=== PATIENT | female | born 1965 | race Caucasian/White ===

== ENCOUNTER 2019-08-16 05:33 | Outpatient (RCR) | payer OTHER, SELFPAY | END 2019-09-03 00:01 | LOC: ONCMED 05:33 | PROVIDERS: Visit Provider Nurse Practitioner | DX: Z51.11 Encounter for antineoplastic chemotherapy (principal); C50.411 Malignant neoplasm of upper-outer quadrant of right female breast; Z17.1 Estrogen receptor negative status [ER-]; M54.9 Dorsalgia, unspecified; F41.8 Other specified anxiety disorders; R51 Headache; H53.8 Other visual disturbances; T82.9XXA Unspecified complication of cardiac and vascular prosthetic device, implant and graft, initial encounter; Y80.1 Therapeutic (nonsurgical) and rehabilitative physical medicine devices associated with adverse incidents; Z90.11 Acquired absence of right breast and nipple | CPT/HCPCS: 36593; 70553; 72072; 72100; 72197; 73523; 80053; 85025; 93306; 96367; 96375; 96413; 99214; A9579 ×2; J1100; J1453; J1642 ×2; J2469; J2997; J3490; J7050; J9264 ==

== ENCOUNTER 2019-10-03 10:30 | Outpatient (RCR) | payer OTHER, SELFPAY ==
[2019-09-23 14:19] LABS: Basophils % 0.5 %; Eosinophils # 0.2 10^3/uL (0.0-0.8); Eosinophils % 3.8 %; Hematocrit 42.1 % (37.0-47.0); Hemoglobin 13.2 g/dL (11.5-15.3); Lymphocytes # 1.2 10^3/uL (0.8-4.8); Lymphocytes % 20.2 %; Mean Corpuscular HGB Conc 31.4 g/dL (30.0-36.0); Mean Corpuscular Hemoglobin 27.8 pg (28.0-34.0); Mean Corpuscular Volume 88.6 fL (81-99); Mean Platelet Volume 9.5 fL (7.4-10.4); Monocytes # 0.4 10^3/uL (0.2-0.9); Monocytes % 7.2 %; Neutrophils # 4.1 10^3/uL (1.8-7.7); Nucleated Red Blood Cells % 0 %; Platelet Count 329 10^3/cmm (130-400); Red Blood Count 4.75 10^6/uL (4.1-5.3); Red Cell Distribution Width 13.4 % (12.1-15.1); White Blood Count 6.1 10^3/uL (4.0-10.0)
[2019-09-23 14:34] LABS: Alanine Aminotransferase 39 U/L (0-33); Albumin Level 4.2 g/dL (3.5-5.2); Alkaline Phosphatase 110 IU/L (35-105); Anion Gap 13.9 (5-19); Aspartate Amino Transferase 28 U/L (0-32); Blood Urea Nitrogen 9 mg/dL (6-20); Calcium 10.1 mg/Dl (8.6-10.0); Carbon Dioxide 29 mmol/L (22-29); Chloride 100 mmol/L (98-107); Globulin 3.1 g/dL (1.3-4.6); Glomerular Filtration Rate 86.9 mL/min (90-130); Glucose 102 mg/dL (74-109); Potassium 3.9 mmol/L (3.5-5.1); Sodium 139 mmol/L (136-145); Total Bilirubin 0.2 mg/dL (0.15-1.2); Total Protein 7.3 g/dL (6.6-8.7)
--- NOTE | 2019-10-03 10:04 | MM_ITS ---
WS: [id number] DIAGNOSTIC LEFT DIGITAL MAMMOGRAM WITH CAD HISTORY: HX OF BREAST CA, history of RIGHT breast cancer. COMPARISON: 12/03/2018 and 03/17/2010 Technique: CC, MLO and ML views. Breast composition: The breasts are heterogeneously dense, which may obscure small masses. Scattered asymmetries are stable since the prior examination. Also stable since 03/17/2010. No suspicious mass. MM/[place] [id number] IMPRESSION: BI-RADS: 2-Benign FOLLOW UP: 1 Year Follow-up
--- NOTE | 2020-01-03 12:05 | XR_ITS ---
WS: [id number] CERVICAL SPINE TECHNIQUE: 3 views of the cervical spine CLINICAL INFORMATION: cervical radiculopathy COMPARISON: None. FINDINGS: Straightening of the normal cervical lordosis. Mild spondylitic changes. Disc space narrowing worse a t C5-C6 with anterior hypertrophic changes. Slight retrolisthesis C5 on C6. No instability on flexion -extension. Normal C1-2 articulation. Moderate facet arthropathy. Mild cervical curve convex right.
== END 2019-10-04 23:59 | disposition home or self-care (01) ==
LOC: RADSHAW 10:30
PROVIDERS: Internal Medicine Hematology & Oncology; Family Provider Nurse Practitioner Women's Health; PCP Family Medicine; Visit Provider Surgery
DX: C50.411 Malignant neoplasm of upper-outer quadrant of right female breast (principal); Z17.1 Estrogen receptor negative status [ER-]; Z79.899 Other long term (current) drug therapy
CPT/HCPCS: 77065; 80053; 85025; G0463

== ENCOUNTER 2019-10-08 05:51 | Day surgery (SDC) | payer OTHER, SELFPAY ==
[2019-10-07 14:25] VITALS: BMI 33.7
[2019-10-08] VITALS (16 sets, daily range): BP systolic 125–179; BP diastolic 78–90; PULSE 72–101; RESP 14–22; TEMP 36.3–37.7; O2SAT 91–100
--- NOTE | 2019-10-08 06:22 | PM.HPUD ---
H&P update H&P Update: DATE OF SURGERY/PROCEDURE: 01/15/20 DATE H&P PERFORMED: 09/30/19 H&P UPDATE INFORMATION: H&P completed within last 30 days and No changes to prior documentation PLANNED PROCEDURE: Operation Date: 10/08/19 07:00 Proposed Procedures p Mastectomy Simple 76982 Z85.3(Left) - Dl Shabazz MD Full H&P Perinent History: Medical/Surgical History: Medical History (Updated 09/30/19 @ 09:46 by Dl Shabazz MD) History of breast cancer (Acute) Family History: Family History (Updated 09/30/19 @ 08:39 by Sarahy Torres RN) Family/Other Cancer breast Denies family history of Anesthesia complication Bleeding disorder Social History: Social History Smoking and tobacco status: never smoked Second hand smoke exposure: No Alcohol intake: never Adopted: No Caregiver/support person: No Lives independently: Yes Household members: family Housing: House Marital status: Single Highest education level completed: High School Graduate service: Yes Current occupational status: retired Current occupational exposures/hazards: No Pets and animals: No History of recent travel: No Sexually active: No Current gender identity: Female Isamar/Mosque: Church Special isamar needs: No Agree to transfusion: No Financial difficulty paying for basics: Decline to Answer
[2019-10-08] MEDS: sodium chloride 0.9% 1,000 ML 30 ML IV (06:32)
[2019-10-08] MEDS: scopolamine 1.5 Patch 1 PATCH TRANSDERMA (06:38)
--- NOTE | 2019-10-08 06:50 | ANES.PREANE2 ---
Pre-Anesthetic Assessment Pre-Anesthetic Assessment: Height/Weight: Height 1.78 m Weight 106.594 kg Temp Pulse Resp BP Pulse Ox 97.5 F L 88 20 H 125/82 96 10/08/19 06:12 10/08/19 06:12 10/08/19 06:12 10/08/19 06:12 10/08/19 06:12 Proposed Procedure: Operation Date: 10/08/19 07:00 Proposed Procedures p Mastectomy Radial(Left) - Dl Shabazz MD Familial anesthetic complications: PONV Was Beta Wilbur taken within 24 hours: N/A Last intake: Intake Last Liquid Date 10/07/19 Last Liquid Time 21:00 Last Solid Date 10/07/19 Last Solid Time 19:00 Social: Social History: No alcohol and No tobacco Exam: Pre-Anes Outpt Exam: alert, oriented x 3, clear to auscultation bilaterally and regular rate & rhythm Airway: Cervical ROM: WNL MP: 4 Dentition: Caps Pulmonary: Pulmonary: None reported CV/HEM: CV/HEM: None reported : : None reported Hepatic: Hepatic: None reported GI: GI: None reported Metabolic: Metabolic: Morbid obesity Musc/skel: Musc/skel: Lower Back Pain Neuropsych: Neuropsych: None reported Comments: Post chemotherapy Anesthetic Plan: ASA status: II Anesthesia: General Meds/Allergies Current Medications: Current Medications Generic Name Dose Route Start Last Admin Trade Name Freq PRN Reason Stop Dose Admin Sodium Chloride 1,000 mls @ 30 ml s/hr 10/08/19 06:00 10/08/19 06:32 Sodium Chloride 0.9% IV 10/09/19 05:59 30 mls/hr .Q24H ELPIDIO Administration PFSH Anesthesia PFSH: Medical History Arthritis Hiatal hernia History of breast cancer Migraine Postmenopausal Surgical History History of delivery History of left total mastectomy History of right total mastectomy Family History Family/Other Cancer breast Denies family history of Anesthesia complication Bleeding disorder Social History Smoking and tobacco status: former smoker Second hand smoke exposure: No Alcohol intake: never Adopted: No Caregiver/support person: No Lives independently: Yes Household members: family Housing: House Marital status: Single Highest education level completed: High School Graduate service: Yes Current occupational status: retired Current occupational exposures/hazards: No Pets and animals: No History of recent travel: No Sexually active: No Current gender identity: Female Isamar/Methodist: Sabianist Special isamar needs: No Agree to transfusion: No Financial difficulty paying for basics: Decline to Answer Female Reproductive History: Date of last menstrual period: 06/04/17 Data Anesthesia Cardiac Studies: No Data to Display
--- NOTE | 2019-10-08 07:28 | SUR.OPER ---
0727 - Pt's family (Shawna) notified of surgery start via her cell phone.
--- NOTE | 2019-10-08 08:17 | P.OP_ITS ---
Operative Report Date of procedure: October 08, 2019 Post-op diagnosis: same Post-op Diagnosis: History of right breast cancer required left prophylactic mastectomy Post-op Findings: Normal-looking left breast Procedure Done: Prophylactic left total mastectomy Implants: 15 Palestinian round Nba drain Specimens removed/disposition: Left mastectomy short sutures marked superior and long sutures harshad lateral Additional inferior skin margin Surgeon: Dl Shabazz Clerk Of Superior Court: morgue technician Thang Medical student Court Registry Officer Circulating nurse Jessenia Anesthesia: General (Gabbi Retana) Estimated blood loss (mL): 20 Condition: stable Disposition: same day Brief History: This is a pleasant 54 years old female patient well known to me from previous clinical encounter in the form of right total mastectomy and sentinel lymph node biopsy for right breast cancer, patient did receive treatment for that and I did place a Port-A-Cath for her that was taken out later on, recently she started to show interest in prophylactic left mastectomy. After thorough history physical examination and reviewing the chart and obtaining a screening mammography, I did counseling department chair the patient for prophylactic left mastectomy and she did agree to proceed, also patient fulfilled the crite katy to undergo prophylactic mastectomy as she did report: After further analyzing family history per patient she does report that she has a paternal grandmother with history of gynecological malignancy likely ovarian cancer and she also does admit that her paternal aunt has history of breast cancer in addition to her maternal uncle with colon cancer, maternal aunt breast cancer, and her maternal grandmother with colon cancer. Informed consent per chart Procedure: Patient was identified in the holding area and the left breast was marked by me in the presence of female business management professor ANA Lomas, patient was then taken to the operative suite, where she was placed in supine position and got intubated by anesthesia and her left arm was placed in the 90 degrees to her body, prep and drape of the left breast region was done under the usual sterile technique. Timeout was done verifying the patient's name medical record number and destination after the procedure, all were in agreement. I started by skin incision that was made that encompassed the left nipple area complex . A generous transverse/oblique direction incision across the breast was done. Flaps were raised in the avascular plane between the subcutaneous tissue and breast tissue from the clavicle superiorly, the sternum medially, the anterior rectus sheath inferiorly, and anterior border of the latissimus dorsi muscle laterally. Hemostasis was achieved of the flaps. Next the breast tissue underlying pectoralis fascia were excised from the pectoralis major muscle, progressing from medially to laterally in the avascular plane. At the lateral border of the pectoralis major muscle, the breast tissue was swung laterally,. The specimen consisting of left breast then excised by dividing the remaining lateral pedicle and sent for permanent pathology.Specimen oriented as short sutures marked superior and long sutures marked lateral Thorough irrigation and hemostasis was achieved A 19 Palestinian Nba rounded drain was brought out from the inferior flap and secured to the chest wall with 2-0 silk Redundant Inferior skin flap was excised and sent for pathology separately And the wound was closed in layers using interrupted 2-0 Vicryl followed by skin kingston,follwoed by dry dressing, drain dressings, fluffs on top and sports bra was applied. Counts of sponges,needles and instruments were completed at the end of the procedure I was present for the whole entire procedure Patient was then extubated and transferred to the recovery room in stable condition
--- NOTE | 2019-10-08 08:28 | SUR.PHASEI ---
0834 PATIENT TO PACU VIA GURNEY FROM OR. RR EVEN AND UNLABORED. PLACED ON SIMPLE MASK AT 8L, SPO2 99%. PATIENT RESPONDS TO VERBAL STIMULI. DRESSING DRY AND INTACT TO LEFT BREAST, WITH SURGICAL BRA IN PLACE. BRIAN DRAIN NOTED.
[2019-10-08] MEDS: fentaNYL 50 mcg/mL INJ 2mL IVP ×2 (08:31→08:39)
[2019-10-08] MEDS: ondansetron 2 mg/ML SDV 2 mL 4 MG IVP (08:34)
[2019-10-08] MEDS: metoclopramide 5 mg/mL SDV 2 mL 10 MG IVP (08:48)
--- NOTE | 2019-10-08 08:54 | SUR.PHASEI ---
0854 PATIENT RATES PAIN 5/10, WANTING TO WAIT FOR PAIN MEDICATIONS DUE TO NAUSEA.
[2019-10-08] MEDS: morphine 4 mg/mL SDV 1 mL 2 MG IVP (08:56)
--- NOTE | 2019-10-08 09:16 | SUR.PHASEI ---
0911 PATIENT TO OPS VIA GURNEY FROM PACU. A/OX3. RR EVEN AND UNLABORED. PWD. DRESSING TO LEFT BREAST, CDI WITH SURGICAL BRA AND BRIAN DRAIN.
== END 2019-10-08 10:16 | disposition home or self-care (01) ==
PROVIDERS: Family Provider Nurse Practitioner Women's Health; PCP Family Medicine; Visit Provider Surgery
PROC: (CPT 19303; principal; 2019-10-08 07:00)
DX: Z85.3 Personal history of malignant neoplasm of breast (principal); Z80.3 Family history of malignant neoplasm of breast; E66.01 Morbid (severe) obesity due to excess calories; Z68.33 Body mass index [BMI] 33.0-33.9, adult
CPT/HCPCS: 19303; 12345; 88305; 88309; J0131; J0690; J1100; J2001; J2250; J2270; J2405; J2704; J2710; J2765; J3010; J3490; J7030

== ENCOUNTER 2019-12-20 10:25 | Outpatient (CLI) | payer OTHER, SELFPAY ==
[2019-12-20 11:36] LABS: Basophils % 0.4 %; Eosinophils # 0.3 10^3/uL (0.0-0.8); Eosinophils % 4.5 %; Hemoglobin 12.7 g/dL (11.5-15.3); Lymphocytes # 1.8 10^3/uL (0.8-4.8); Lymphocytes % 26.8 %; Mean Corpuscular HGB Conc 30.2 g/dL (30.0-36.0); Mean Corpuscular Volume 86.1 fL (81-99); Mean Platelet Volume 9.5 fL (7.4-10.4); Monocytes # 0.4 10^3/uL (0.2-0.9); Monocytes % 5.7 %; Neutrophils # 4.2 10^3/uL (1.8-7.7); Neutrophils % 62.3 %; Nucleated Red Blood Cells % 0 %; Platelet Count 344 10^3/cmm (130-400); Red Blood Count 4.88 10^6/uL (4.1-5.3); Red Cell Distribution Width 13.6 % (12.1-15.1); White Blood Count 6.7 10^3/uL (4.0-10.0)
[2019-12-20 12:02] LABS: Alanine Aminotransferase 33 U/L (0-33); Albumin Level 4.2 g/dL (3.5-5.2); Alkaline Phosphatase 100 IU/L (35-105); Anion Gap 15.1 (5-19); Aspartate Amino Transferase 20 U/L (0-32); Blood Urea Nitrogen 11 mg/dL (6-20); Calcium 9.6 mg/dL (8.5-10.5); Carbon Dioxide 28 mmol/L (22-29); Chloride 101 mmol/L (98-107); Globulin 3.2 g/dL (1.3-4.6); Glomerular Filtration Rate 86.9 mL/min (90-130); Glucose 100 mg/dL (65-115); Osmolality Calculated 286 mOsm/kg (285-295); Potassium 4.1 mmol/L (3.5-5.1); Sodium 140 mmol/L (136-145); Total Bilirubin 0.2 mg/dL (0.15-1.2); Total Protein 7.4 g/dL (6.6-8.7)
--- NOTE | 2020-01-03 | MR_ITS ---
WS: [id number] MRI CERVICAL SPINE NONCONTRAST TECHNIQUE: Sagittal T1, T2 and STIR imaging. Axial T2, gradient, and fiesta imaging. CLINICAL INFORMATION: NECK PAIN COMPARISON: None. FINDINGS: Straightening of the normal cervical lordosis. Cord signal is normal. Slight retrolisthesis with mild disc bulging worse at C5-6. No high-grade central canal stenosis. C2-C3: Normal. C3-C4: No significant disc bulging. Mild right and no significant left foraminal narrowing. Mild face t arthropathy. Spinal canal is patent. C4-C5: No significant disc bulging. Mild to moderate facet arthropathy. Mild left and no significant right foraminal narrowing. C5-C6: Central disc osteophyte protrusion with slight contact of the cervical cord. Mild to moderate central canal stenosis. Moderate right and no significant left foraminal narrowing. Moderate facet ar thropathy. C6-C7: Normal. C7-T1: Normal Visualized brain stem structures: Normal. Prevertebral soft tissues: Normal.
--- NOTE | 2020-01-03 | MR_ITS ---
WS: [id number] MRI RIGHT SHOULDER NONCONTRAST TECHNIQUE: Sagittal T2, coronal T1, T2 and proton density imaging. Axial gradient PDE imaging. CLINICAL INFORMATION: RT SHOULDER PAIN COMPARISON: None. FINDINGS: Moderate degenerative arthritis at the AC joint with mild edema. Mild downsloping of the acromion wit h subacromial spurring. Chronic thinning of the supraspinatus distally. Tiny intrasubstance tear invo lving the distal supraspinatus. Tiny insertional tear. Small undersurface tear at the infraspinatus i nsertion posteriorly. Normal teres minor. Normal subscapularis tendon distally. Normal biceps tendon in the bicipital groov e. Small effusion in the subcoracoid bursa. Degenerative fraying of the glenoid labrum. Biceps labral an chor appears intact.
[2020-03-20 12:50] LABS: Basophils % 0.5 %; Eosinophils # 0.2 10^3/uL (0.0-0.8); Eosinophils % 2.9 %; Hematocrit 45.1 % (37.0-47.0); Hemoglobin 13.6 g/dL (11.5-15.3); Lymphocytes # 1.8 10^3/uL (0.8-4.8); Lymphocytes % 23.4 %; Mean Corpuscular HGB Conc 30.2 g/dL (30.0-36.0); Mean Corpuscular Hemoglobin 26.7 pg (28.0-34.0); Mean Corpuscular Volume 88.4 fL (81-99); Monocytes # 0.4 10^3/uL (0.2-0.9); Monocytes % 5.2 %; Neutrophils # 5.19 10^3/uL (1.8-7.7); Neutrophils % 67.6 %; Nucleated Red Blood Cells % 0 %; Platelet Count 323 10^3/cmm (130-400); Red Cell Distribution Width 15.8 % (12.1-15.1); White Blood Count 7.7 10^3/uL (4.0-10.0)
[2020-03-20 12:54] LABS: Alanine Aminotransferase 25 U/L (0-33); Albumin Level 4.2 g/dL (3.5-5.2); Alkaline Phosphatase 89 IU/L (35-105); Anion Gap 15.6 (5-19); Aspartate Amino Transferase 15 U/L (0-32); Blood Urea Nitrogen 8 mg/dL (6-20); Calcium 9.3 mg/dL (8.5-10.5); Carbon Dioxide 28 mmol/L (22-29); Chloride 102 mmol/L (98-107); Globulin 3.3 g/dL (1.3-4.6); Glomerular Filtration Rate 103.4 mL/min (90-130); Glucose 81 mg/dL (65-115); Osmolality Calculated 287 mOsm/kg (285-295); Potassium 4.6 mmol/L (3.5-5.1); Sodium 141 mmol/L (136-145); Total Bilirubin 0.2 mg/dL (0.15-1.2); Total Protein 7.5 g/dL (6.6-8.7)
[2020-03-20 13:22] LABS: Slide Review Slide Review Perform
== END 2019-12-20 10:26 | disposition home or self-care (01) ==
LOC: ONCMED 11:32
PROVIDERS: Surgery; PCP Family Medicine; Visit Provider Internal Medicine Medical Oncology
DX: C50.411 Malignant neoplasm of upper-outer quadrant of right female breast (principal)
CPT/HCPCS: 36415; 80053; 85025

== ENCOUNTER 2019-12-23 08:01 | Outpatient (CLI) | payer OTHER, SELFPAY | END 2019-12-23 08:02 | disposition home or self-care (01) | LOC: ONCMED 08:01 | PROVIDERS: PCP Family Medicine; Visit Provider Internal Medicine Hematology & Oncology | DX: C50.411 Malignant neoplasm of upper-outer quadrant of right female breast (principal); Z17.1 Estrogen receptor negative status [ER-] ==

== ENCOUNTER → 2019-12-27 11:14 | Outpatient (BNVA) | payer OTHER, SELFPAY | PROVIDERS: PCP Family Medicine; Referring Provider Internal Medicine Hematology & Oncology; Visit Provider Orthopaedic Surgery | DX: S49.90XA Unspecified injury of shoulder and upper arm, unspecified arm, initial encounter (principal); M13.811 Other specified arthritis, right shoulder | CPT/HCPCS: 73030 ==

== ENCOUNTER 2020-01-03 08:00 | Outpatient (CLI) | payer OTHER, SELFPAY ==
--- NOTE | 2020-01-03 | MR_ITS ---
WS: [id number] MRI RIGHT SHOULDER NONCONTRAST TECHNIQUE: Sagittal T2, coronal T1, T2 and proton density imaging. Axial gradient PDE imaging. CLINICAL INFORMATION: RT SHOULDER PAIN COMPARISON: None. FINDINGS: Moderate degenerative arthritis at the AC joint with mild edema. Mild downsloping of the acromion wit h subacromial spurring. Chronic thinning of the supraspinatus distally. Tiny intrasubstance tear invo lving the distal supraspinatus. Tiny insertional tear. Small undersurface tear at the infraspinatus i nsertion posteriorly. Normal teres minor. Normal subscapularis tendon distally. Normal biceps tendon in the bicipital groov e. Small effusion in the subcoracoid bursa. Degenerative fraying of the glenoid labrum. Biceps labral an chor appears intact. MR/MR shoulder RT wo con* [id number] IMPRESSION: 1. Moderate degenerative arthritis at the AC joint with mild edema and mild do wnsloping of the acromion with subacromial spurring. 2. Chronic thinning of the supraspinatus with a tiny intrasubstance tear dista lly. Tiny supraspinatus insertional tear. 3. Tiny undersurface tear at the infraspinatus insertion posteriorly. 4. Rotator cuff is otherwise intact. No full-thickness tears. 5. Normal biceps tendon in the bicipital groove. 6. Degenerative fraying of the glenoid labrum. 7. Small subcoracoid bursal effusion.
--- NOTE | 2020-01-03 | XR_ITS ---
WS: [id number] CERVICAL SPINE TECHNIQUE: 3 views of the cervical spine CLINICAL INFORMATION: cervical radiculopathy COMPARISON: None. FINDINGS: Straightening of the normal cervical lordosis. Mild spondylitic changes. Disc space narrowing worse a t C5-C6 with anterior hypertrophic changes. Slight retrolisthesis C5 on C6. No instability on flexion -extension. Normal C1-2 articulation. Moderate facet arthropathy. Mild cervical curve convex right. XR/XR cervical spine 4-5V [id number] IMPRESSION: No instability on flexion-extension
--- NOTE | 2020-01-03 | MR_ITS ---
WS: [id number] MRI CERVICAL SPINE NONCONTRAST TECHNIQUE: Sagittal T1, T2 and STIR imaging. Axial T2, gradient, and fiesta imaging. CLINICAL INFORMATION: NECK PAIN COMPARISON: None. FINDINGS: Straightening of the normal cervical lordosis. Cord signal is normal. Slight retrolisthesis with mild disc bulging worse at C5-6. No high-grade central canal stenosis. C2-C3: Normal. C3-C4: No significant disc bulging. Mild right and no significant left foraminal narrowing. Mild face t arthropathy. Spinal canal is patent. C4-C5: No significant disc bulging. Mild to moderate facet arthropathy. Mild left and no significant right foraminal narrowing. C5-C6: Central disc osteophyte protrusion with slight contact of the cervical cord. Mild to moderate central canal stenosis. Moderate right and no significant left foraminal narrowing. Moderate facet ar thropathy. C6-C7: Normal. C7-T1: Normal Visualized brain stem structures: Normal. Prevertebral soft tissues: Normal. MR/MR cervical spin wo con* [id number] IMPRESSION: 1. Straightening of the normal cervical lordosis. Cord signal is normal. 2. Slight retrolisthesis C5 on C6 with central disc osteophyte protrusion and mild to moderate central canal stenosis. Slight indentation on cervical cord. 3. Mild to moderate bony foraminal narrowing worse at right C3-C4, left C4-C5, and right C5-C6,
== END 2020-01-03 09:00 | disposition home or self-care (01) ==
PROVIDERS: PCP Family Medicine; Visit Provider Orthopaedic Surgery
DX: M54.2 Cervicalgia (principal); M54.12 Radiculopathy, cervical region; M25.511 Pain in right shoulder; M19.011 Primary osteoarthritis, right shoulder; R60.0 Localized edema; M25.411 Effusion, right shoulder
CPT/HCPCS: 72050; 72141; 73221

== ENCOUNTER 2020-03-20 08:35 | Outpatient (CLI) | payer OTHER, SELFPAY | END 2020-03-20 08:36 | disposition home or self-care (01) | PROVIDERS: PCP Family Medicine; Visit Provider Internal Medicine Hematology & Oncology | DX: C50.411 Malignant neoplasm of upper-outer quadrant of right female breast (principal); Z17.1 Estrogen receptor negative status [ER-] | CPT/HCPCS: 80053; 85025 ==

== ENCOUNTER 2020-03-23 12:42 | Outpatient (CLI) | payer OTHER, SELFPAY | END 2020-03-23 12:43 | disposition home or self-care (01) | LOC: ONCMED 12:45 | PROVIDERS: PCP Family Medicine; Visit Provider Internal Medicine Hematology & Oncology | DX: C50.411 Malignant neoplasm of upper-outer quadrant of right female breast (principal); Z90.13 Acquired absence of bilateral breasts and nipples; Z92.21 Personal history of antineoplastic chemotherapy; M16.0 Bilateral primary osteoarthritis of hip; M25.511 Pain in right shoulder | CPT/HCPCS: G0463 ==

== ENCOUNTER 2020-04-01 06:00 | Outpatient (RCR) | payer OTHER, SELFPAY | END 2020-04-03 23:59 | disposition home or self-care (01) | LOC: TPT 06:00 | PROVIDERS: PCP Family Medicine; Referring Provider Neurological Surgery; Visit Provider Neurological Surgery | DX: M54.2 Cervicalgia (principal); M25.511 Pain in right shoulder | CPT/HCPCS: 97161 ==

== ENCOUNTER 2020-04-06 08:52 | Emergency (ER) | payer OTHER, SELFPAY ==
[2020-04-06 09:00] VITALS: BMI 33.0
--- NOTE | 2020-04-06 09:00 | W.ED.LOWEXIN ---
HPI - Extremity Injury (Lower) General: Chief Complaint: Extremity Injury, Lower Stated Complaint: L KNEE INJURY Time Seen by Provider: 04/06/20 08:55 Source: patient Mode of arrival: ambulatory Limitations: no limitations History of Present Illness: HPI Narrative: Patient is a 55-year-old female who presents to ED today with complaints of a left knee injury. Patient states she was on her deck when she slipped and twisted her knee. Patient states she has not been able to ambulate on the extremity since. She denies any other injuries. There was no direct injury or trauma to the knee. She denies any previous left knee injuries/surgeries. MD complaint: knee injury Onset (ago): hour(s) Injury: Left: knee Place: home Severity: moderate Relieving factors: immobilization Exacerbating factors: weight bearing, movement and palpation Context: other (twisting) Associated symptoms: Reports inability to bear weight Other symptoms: none Review of Systems Musc: Reports: joint pain (L knee) Neuro: Denies: numbness in extremities or sensory changes PFS ED PFSH: Medical History (Updated 04/06/20 @ 11:29 by CHANDAN Fabian) Arthritis Hiatal hernia History of breast cancer Migraine Postmenopausal Rotator cuff syndrome Surgical History History of delivery History of left total mastectomy History of right total mastectomy Family History Family/Other Cancer breast Denies family history of Anesthesia complication Bleeding disorder Social History Smoking and tobacco status: former smoker Second hand smoke exposure: No Alcohol intake: never Adopted: No Caregiver/support person: No Lives independently: Yes Household members: family Housing: House Marital status: Single Highest education level completed: High School Graduate service: Yes Current occupational status: retired Current occupational exposures/hazards: No Pets and animals: No History of recent travel: No Sexually active: No Current gender identity: Female Isamar/Anglican: Amish Special isamar needs: No Agree to transfusion: No Financial difficulty paying for basics: Decline to Answer Female Reproductive History: Date of last menstrual period: 06/04/17 Physical Exam Const: COMMON NORMALS: no acute distress, patient oriented x3, no limitations and alert NUTRITIONAL APPEARANCE: obese Extremity: GENERAL: Yes normal exam except as noted LEFT LOWER EXTREMITY: Yes knee joint (TTP mainly to medial joint line; no obvious laxity noted; small effusion) Left knee: Yes neurovascular exam (normal) Neuro: COMMON NORMALS: patient oriented x3, moves all extremities, no focal motor deficits and no sensory deficits noted SENSORIUM/ORIENTATION: Yes alert GAIT: Yes Unable to assess gait Skin: COMMON NORMALS: no rashes or lesions noted NARRATIVE SKIN EXAM: no redness/warmth to knee joint GENERAL SKIN EXAM: no rashes or lesions noted Course ED course: severe delay in pts care as XR order did not cross over so XR was not aware of order thus it still is not completed at 1044 Vital Signs: Vital signs: Vital Signs Temperature 98.3 F 04/06/20 09:01 Pulse Rate 85 04/06/20 09:01 Respiratory Rate 18 04/06/20 09:01 Blood Pressure 121/74 04/06/20 09:01 Pulse Oximetry 93 04/06/20 09:14 MDM - Extremity Injury (Lower) MDM Narrative: Medical decision making narrative: Patient tells me anytime she tries to ambulate on her knee belkys to the inside . Most likely internal derangement of her left knee. XR showing small fibular calcifications but could not definitely rule out avulsion fxs. She doesn't have any tenderness to her fibular head. She states she will not be very well with crutches as she has had bilateral axillary lymphadenectomies. We will place her in a knee immobilizer and give her a walker. Will place info with CM for orthopedic follow up. Imaging Data^: L knee XR: Radiologist's impression: [address] [address] XRay Report Signed Patient: Agatha Hoffman Unit #: [id number] : 1965 Age/Sex: 55 / F ADM Date: 04/06/20 Loc: ER Room/Bed: Attending Dr: Ordering Provider/Ordering MD: Megan Trinidad Date of Service: 04/06/20 Procedure(s): XR knee LT 3V* [id number] Accession Number(s): [id number] Report Number: [id number] WS: [id number] LEFT KNEE: 3 VIEW(S) TECHNIQUE: AP, oblique(s) and lateral. HISTORY: twisting injury/cannot bear weight COMPARISON: None available. No definite fracture or dislocation. There are tiny osseous densities adjacent to the fibular head which could be small avulsion fractures. These also could be old fractures or related to soft tissue calcification. No joint space narrowing or osteophytes. There is a small suprapatellar joint effusion. XR/XR knee LT 3V* [id number] IMPRESSION: 1. Small suprapatellar joint effusion. 2. Tiny osseous densities adjacent to the fibular head. These may be soft tissue calcifications or tiny age indeterminate avulsion fractures. 3. Clinically if further evaluation is necessary CT may provide additional information concerning an occult fracture. Dictated By: Radha Mares DO Signed By: Radha Mares DO Signed Date/Time: 04/06/20 1206 DD/ 1204 Discharge Plan Discharge Patient Disposition: Home Clinical Impression: Acute internal derangement of left knee Condition: Stable Prescriptions: New hydrocodone-acetaminophen 5-325 mg tablet 1 tab PO Q6H PRN (Reason: pain) Qty: 14 RF: 0 No Action Claritin 10 mg PO DAILY PRN (Reason: Allergy Symptoms) RF: 0 Discharge Orders: Discharge Order (Routine); Ordered 04/06/20 Ordered By: Megan Trinidad Referrals: Sonya Pelaez MD [Primary Care Provider] - Activity Restrictions/Additional Instructions: As discussed case management should set you up with your orthopedic followup appointment. Coding Level of Care Code ED Technical Manager [employer] for [employer] Fwd Exam Expanded Problem Focused
[2020-04-06 09:01] VITALS: BP 121/74; PULSE 85; RESP 18; TEMP 36.8; O2SAT 96
--- NOTE | 2020-04-06 09:08 | XR_ITS ---
WS: [id number] LEFT KNEE: 3 VIEW(S) TECHNIQUE: AP, oblique(s) and lateral. HISTORY: twisting injury/cannot bear weight COMPARISON: None available. No definite fracture or dislocation. There are tiny osseous densities adjacent to the fibular head wh ich could be small avulsion fractures. These also could be old fractures or related to soft tissue ca lcification. No joint space narrowing or osteophytes. There is a small suprapatellar joint effusion. XR/XR knee LT 3V* [id number] IMPRESSION: 1. Small suprapatellar joint effusion. 2. Tiny osseous densities adjacent to the fibular head. These may be soft tiss ue calcifications or tiny age indeterminate avulsion fractures. 3. Clinically if further evaluation is necessary CT may provide additional inf ormation concerning an occult fracture.
[2020-04-06 09:14] VITALS: O2SAT 93
[2020-04-06 13:03] VITALS: BP 109/78; PULSE 92; RESP 18; O2SAT 96
--- NOTE | 2020-04-06 15:17 | PC.SOCIAL ---
Spoke with Sudha at the ortho clinic. She stated that she will set the patient up with an ortho appointment.
--- NOTE | 2020-04-08 13:28 | DCPLANNER ---
Patient has a follow up appointment scheduled for Wednesday, April 15, 2020 at 9:00 with . Clinic will call patient with appointment information.
--- NOTE | 2020-04-15 08:16 | XR_ITS ---
WS: [id number] Left knee, standing AP views of both knees, lateral and patellar view of the left knee, 04/15/2020 Clinical Data: knee pain Comparison: Left knee, 04/06/2020. Findings: There are no fractures or dislocations of the left knee. The left patella is unremarkable. The AP vi ew of the right knee is unremarkable. The soft tissues are normal.
--- NOTE | 2020-04-17 13:25 | DCPLANNER ---
Patient had a follow up appointment scheduled for 04.15.20 with ortho - patient did attend the appointment.
== END 2020-04-06 13:09 | disposition home or self-care (01) ==
PROVIDERS: Emergency Provider Physician Assistant; PCP Family Medicine
DX: M23.8X2 Other internal derangements of left knee (principal); Z87.891 Personal history of nicotine dependence; Z85.3 Personal history of malignant neoplasm of breast
CPT/HCPCS: 12345; 29530; 73562; 99281; 99283

== ENCOUNTER 2020-04-15 08:45 | Outpatient (CLI) | payer OTHER, SELFPAY ==
--- NOTE | 2020-04-15 16:24 | XR_ITS ---
WS: [id number] Left knee, standing AP views of both knees, lateral and patellar view of the left knee, 04/15/2020 Clinical Data: knee pain Comparison: Left knee, 04/06/2020. Findings: There are no fractures or dislocations of the left knee. The left patella is unremarkable. The AP vi ew of the right knee is unremarkable. The soft tissues are normal. XR/XR knee LT 3V* [id number] Impression: 1. Negative AP views of both knees. 2. Negative left knee.
== END 2020-04-15 08:46 | disposition home or self-care (01) ==
PROVIDERS: PCP Family Medicine; Visit Provider Specialist
DX: M25.562 Pain in left knee (principal)
CPT/HCPCS: 73562

== ENCOUNTER 2020-04-15 13:59 | Outpatient (CLI) | payer OTHER, SELFPAY | END 2020-04-15 14:00 | disposition home or self-care (01) | LOC: SPT 14:00 | PROVIDERS: PCP Family Medicine; Visit Provider Specialist | DX: M54.2 Cervicalgia (principal); M25.511 Pain in right shoulder | CPT/HCPCS: 97760; L1832 ==

== ENCOUNTER 2020-04-21 07:41 | Outpatient (CLI) | payer OTHER, SELFPAY ==
--- NOTE | 2020-04-21 07:43 | MR_ITS ---
WS: [id number] MRI LEFT KNEE HISTORY: Knee pain after fall 2 1/2 weeks ago. COMPARISON: None available. Anterior cruciate ligament: Abnormal increased T2 signal throughout the ACL with loss of the normal c ourse of the fibers consistent with a complete tear. Posterior cruciate ligament: Intact. Medial collateral ligament: Intact. Posterior lateral corner structures: Intact. Medial menisci: Horizontal tear posterior horn extends to the inferior articular surface. Additional intrasubstance degeneration and fraying along the surfaces of the posterior horn. Lateral meniscus: Intact. Normal signal, size and shape. Extensor mechanism: Distal quadriceps tendon and patellar tendons are intact. Fluid and soft tissue: Small suprapatellar joint effusion. Moderate amount of edema surrounds the kne e greatest anteriorly. No Bell's cyst. Osseous and articular structures: Patellofemoral compartment: Mild narrowing of patellofemoral compartment. Focal 4 mm defect just late ral to the patellar eminence. Normal marrow signal. Medial compartment: Mild narrowing of the medial compartment. Thinning of the cartilage. No full-thic kness defects. Marrow edema along the posterior tibial plateau. Femoral condyle is negative. No fract ure. Lateral compartment: Mild narrowing of the lateral compartment with thinning and fissuring of the car tilage but no full-thickness cartilage defects. Again noted is marrow edema and along the posterior t ibial plateau and a small amount of marrow edema in the anterior portion of the lateral femoral condy le. Loss of the normal overlying cortex along the lateral femoral condyle indicating microfractures. MR/MR knee LT wo con* [id number] IMPRESSION: 1. Complete tear ACL. 2. Horizontal tear posterior horn medial meniscus. 3. Contiguous marrow edema along the entire posterior tibial plateau with no f racture identified. 4. Marrow edema in the anterior lateral femoral condyle with overlying trabecu lar injury and loss of the normal cortex. 5. Small patellar joint effusion with surrounding soft tissue edema. 6. Mild tricompartment degenerative changes with joint space narrowing and los s of cartilage.
== END 2020-04-21 07:42 | disposition home or self-care (01) ==
PROVIDERS: PCP Family Medicine; Visit Provider Specialist
DX: S43.52XA Sprain of left acromioclavicular joint, initial encounter (principal); S83.242A Other tear of medial meniscus, current injury, left knee, initial encounter; R60.0 Localized edema; M25.462 Effusion, left knee; X58.XXXA Exposure to other specified factors, initial encounter
CPT/HCPCS: 73721

== ENCOUNTER 2020-05-06 06:00 | Outpatient (RCR) | payer OTHER, SELFPAY | END 2020-06-03 23:59 | disposition home or self-care (01) | LOC: TPT 06:00 | PROVIDERS: Referring Provider Specialist; Visit Provider Specialist | DX: S83.512D Sprain of anterior cruciate ligament of left knee, subsequent encounter (principal); S72.402D Unspecified fracture of lower end of left femur, subsequent encounter for closed fracture with routine healing; X58.XXXD Exposure to other specified factors, subsequent encounter | CPT/HCPCS: 97161 ==

== ENCOUNTER 2020-05-25 11:33 | Outpatient (CLI) | payer OTHER, SELFPAY | END 2020-05-25 11:34 | disposition home or self-care (01) | LOC: SPT 11:33 | PROVIDERS: Visit Provider Specialist | DX: S72.402D Unspecified fracture of lower end of left femur, subsequent encounter for closed fracture with routine healing (principal); X58.XXXD Exposure to other specified factors, subsequent encounter | CPT/HCPCS: 73562; 97760; L1812 ==

== ENCOUNTER → 2020-05-27 13:46 | Outpatient (BNVA) | payer OTHER, SELFPAY | PROVIDERS: Visit Provider Family Medicine | DX: R05 Cough (principal) | CPT/HCPCS: 71046 ==

== ENCOUNTER 2020-05-28 08:49 | Outpatient (CLI) | payer OTHER, SELFPAY ==
--- NOTE | 2020-05-28 11:55 | US_ITS ---
WS: [id number] Gallbladder ultrasound, 05/28/2020 Clinical Data: abdominal pain Comparison: None. Findings: The gallbladder shows no sludge or stone. The wall measures 0.30 cm with no pericholecystic fluid. The common bile duct is 0.40 cm and there are no intrahepatic ductal abnormalities. Liver shows no cysts, masses or dilated intrahepatic ducts. The liver measures 14.48 cm. There is a r ight pleural effusion. The pancreas is not obscured by overlying bowel gas and no cyst, pseudocyst, or evidence of pancreati tis is noted. Right kidney measures 4.20 x 4.41 x 12.37 cm cm and no cyst, masses or hydronephrosis can be seen. The aorta and inferior vena cava show no vascular abnormalities. US/US abdomen complete* [id number] Impression: 1. Negative right upper quadrant ultrasound. 2. Right pleural effusion.
== END 2020-05-28 08:50 | disposition home or self-care (01) ==
PROVIDERS: PCP Family Medicine; Visit Provider Family Medicine
DX: R10.9 Unspecified abdominal pain (principal); J90 Pleural effusion, not elsewhere classified
CPT/HCPCS: 76700

== ENCOUNTER → 2020-06-03 13:32 | Outpatient (BNVA) | payer OTHER, SELFPAY | PROVIDERS: PCP Family Medicine; Visit Provider Family Medicine | DX: J18.1 Lobar pneumonia, unspecified organism (principal); R93.89 Abnormal findings on diagnostic imaging of other specified body structures; Z68.34 Body mass index [BMI] 34.0-34.9, adult; F17.211 Nicotine dependence, cigarettes, in remission | CPT/HCPCS: 80053; 85025 ==

== ENCOUNTER 2020-06-04 10:09 | Outpatient (CLI) | payer OTHER, SELFPAY ==
--- NOTE | 2020-06-04 10:30 | CT_ITS ---
WS: [id number] CT CHEST TECHNIQUE: Contrast enhanced CT of the chest with coronal and sagittal reformatted images. CLINICAL INFORMATION: hx of breast ca COMPARISON: None. DLP: 1071.98 mGy-cm All CT scans at [facility] use at least one of these dose optimization techniques: automat ed exposure control; mA and/or kV adjustment per patient size (includes targeted exams where dose is matched to clinical indication); or iterative reconstruction. FINDINGS: Prior postoperative changes bilateral mastectomies. Large right pleural effusion compressive atelecta sis in the right lower lobe. Nodular pleural-based enhancing lesions in the right lower lobe pleura a nd hemidiaphragm extending along the mediastinum suspicious for metastatic disease. A few smaller nod ular enhancing foci along the right pleura laterally extending to the lung apex. Left lung is well aerated. Mild chronic emphysematous changes. No mediastinal or hilar lymphadenopath y. Normal thyroid gland. Subsegmental atelectasis along the right upper lobe anteromedially extending along the right fissure. Pleural-based nodular lesions along the right upper lobe pleural surface an teriorly and medially. Mild right to left mass effect due to the large pleural effusion. Normal caliber thoracic aorta. Prox imal main pulmonary arteries appear normal. No axillary lymphadenopathy. Surgical clips right axilla. Mild diffuse fatty infiltration liver. Normal GE junction. Normal spleen. Small splenule. Adrenal gla nds are normal. Normal caliber upper abdominal aorta. Normal visualized thoracic spine. CT/CT chest w con* [id number] IMPRESSION: 1. Large right pleural effusion with compressive atelectasis in the right lowe r lobe. Mild right to left mass effect on the mediastinum. 2. Numerous enhancing pleural based nodules involving the right pleura posteri chula along the right lower lobe and extending along the right hemidiaphragm. En hancing pleural-based nodules throughout the right lung and extending along the anterior mediastinum suspicious for pleural-based metastatic disease. 3. Subsegmental atelectasis in right upper lobe anteromedially. 4. Left lung is well aerated. 5. No mediastinal or hilar lymphadenopathy. 6. Mild diffuse fatty infiltration of the liver. 7. Surgical clips right axilla.
[2020-06-04] MEDS: iohexol 300 mg/mL 100 mL Btl IV (11:51)
== END 2020-06-04 10:10 | disposition home or self-care (01) ==
PROVIDERS: PCP Family Medicine; Visit Provider Family Medicine
DX: Z85.3 Personal history of malignant neoplasm of breast (principal); J90 Pleural effusion, not elsewhere classified; J98.11 Atelectasis; K76.0 Fatty (change of) liver, not elsewhere classified
CPT/HCPCS: 71260; Q9967

== ENCOUNTER 2020-06-05 07:47 | Outpatient (CLI) | payer OTHER, SELFPAY | END 2020-06-05 07:48 | disposition home or self-care (01) | LOC: ONCMED 07:49 | PROVIDERS: PCP Family Medicine; Visit Provider Internal Medicine Hematology & Oncology | DX: C50.411 Malignant neoplasm of upper-outer quadrant of right female breast (principal); Z17.1 Estrogen receptor negative status [ER-]; M16.0 Bilateral primary osteoarthritis of hip; G89.29 Other chronic pain; J90 Pleural effusion, not elsewhere classified | CPT/HCPCS: 99214 ==

== ENCOUNTER 2020-06-05 09:17 | Emergency (ER) | payer OTHER, SELFPAY ==
[2020-06-05 09:25] VITALS: BP 186/115; PULSE 122; RESP 20; TEMP 36.9; O2SAT 98; BMI 34.1
[2020-06-05 09:30] VITALS: O2SAT 98
--- NOTE | 2020-06-05 09:46 | W.ED.SOB ---
HPI - SOB/Dyspnea General: Chief Complaint: Shortness of Breath/Dyspnea Stated Complaint: SOB Time Seen by Provider: 06/05/20 09:22 History of Present Illness: HPI Narrative: This patient is a 55-year-old female who was sent over from Dr. Hernández's office today. She has a history of breast cancer that was diagnosed last year and has been treated. Over the past month and a half she has been having increasing shortness of breath. Treatment for allergies by her PCP was not helping and so a chest x-ray was done. This identified a right pleural effusion. She had a CT scan done yesterday that confirmed that finding. Dr. Hernández sent her to the ED today feeling that she needs an emergent thoracentesis for therapeutic and diagnostic purposes. MD elicited complaint: shortness of breath Pertinent past history: other (Breast cancer, known right pleural effusion.) Onset (ago): month(s) (1.5) Severity: moderate Exacerbating factors: lying flat, exertion, movement, coughing, inspiration and talking Relieving factors: rest and upright position Associated symptoms: Deny abdominal pain, chest pain, fever(s), nausea or vomiting Review of Systems General: Reports: 10 or more systems reviewed and unremarkable except in HPI and below Const: Reports: fatigue; Denies: fever(s), chills or malaise Eyes: Denies: change in vision ENMT: Denies: odynophagia Card: Denies: chest pain Resp: Reports: dyspnea; Denies: productive cough or non-productive cough GI: Denies: abdominal pain, nausea or vomiting : Denies: flank pain or difficulty voiding Musc: Denies: neck pain or back pain Skin/Breast: Denies: rash Neuro: Denies: headache(s), numbness in extremities or weakness in extremities Jovany/Lymph: Denies: easy bruising or easy bleeding PFS ED PFSH: Medical History Arthritis Hiatal hernia History of breast cancer Migraine Postmenopausal Rotator cuff syndrome Surgical History History of delivery History of left total mastectomy History of right total mastectomy Family History Family/Other Cancer breast Denies family history of Anesthesia complication Bleeding disorder Social History Smoking and tobacco status: former smoker Second hand smoke exposure: No Alcohol intake: never Adopted: No Caregiver/support person: No Lives independently: Yes Household members: family Housing: House Marital status: Single Highest education level completed: High School Graduate service: Yes Current occupational status: retired Current occupational exposures/hazards: No Pets and animals: No History of recent travel: No Sexually active: No Current gender identity: Female Isamar/Anabaptist: Scientology Special isamar needs: No Agree to transfusion: No Financial difficulty paying for basics: Decline to Answer Female Reproductive History: Date of last menstrual period: 06/04/17 Physical Exam Const: COMMON NORMALS: no acute distress, patient oriented x3, no limitations and alert GENERAL APPEARANCE: cooperative and comfortable HENMT: HEAD & SCALP: normal to inspection FACE & SINUS: normal facial exam Eye: GENERAL EYE: appearance normal, both eyes and all related structures Neck/C-Spine: COMMON NORMALS: supple, no meningeal signs and no JVD Chest: COMMONS NORMALS: normal inspection of the chest Resp: EFFORT & INSPECTION: Yes tachypneic and Yes uses accessory muscles AUSCULTATION: breath sounds absent on the right Cardio: COMMON NORMALS: no JVD, regular rhythm and No murmurs present (Cardio) RATE: tachycardic RHYTHM: regular rhythm GI: COMMON NORMALS: Normal to inspection, nondistended, normoactive bowel sounds present, Soft to palpation and non-tender INSPECTION: Yes normal to inspection AUSCULTATION: Yes normoactive bowel sounds PALPATION: Yes Soft to palpation Back/Pelvis: COMMON NORMALS: thoracic and lumbar spine normal to inspection Extremity: COMMON NORMALS: normal to inspection Neuro: COMMON NORMALS: patient oriented x3, moves all extremities, no focal motor deficits and no sensory deficits noted SENSORIUM/ORIENTATION: Yes alert MENINGEAL SIGNS: Yes no meningeal signs Psych: COMMON NORMALS: mental status grossly normal, cooperative and normal affect Skin: COMMON NORMALS: no rashes or lesions noted and turgor normal GENERAL SKIN EXAM: no rashes or lesions noted and turgor normal Course ED course: Patient had a thoracentesis done in the ED by Dr. Cedeno. She will follow-up with him. She felt much better and less short of breath after the procedure. Vital Signs: Vital signs: Vital Signs Temperature 98.5 F 06/05/20 09:25 Pulse Rate 112 H 06/05/20 15:12 Respiratory Rate 21 H 06/05/20 15:12 Blood Pressure 118/91 06/05/20 15:12 Pulse Oximetry 94 06/05/20 15:12 MDM - SOB/Dyspnea Lab Data: Labs: Lab Results 06/05/20 06/05/20 06/05/20 Range/Units 12:48 12:48 12:48 WBC 9.6 (4.0-10.0) 10^3/ uL RBC 4.97 (4.1-5.3) 10^6/u L Hgb 13.1 (11.5-15.3) g/dL Hct 43.0 (37.0-47.0) % MCV 86.5 (81-99) fL MCH 26.4 L (28.0-34.0) pg MCHC 30.5 (30.0-36.0) g/dL RDW 13.7 (12.1-15.1) % Plt Count 400 (130-400) 10^3/c mm MPV 9.0 (7.4-10.4) fL Neut % (Auto) 74.9 % Lymph % (Auto) 15.6 % [place] % (Auto) 5.8 % Eos % (Auto) 2.7 % Baso % (Auto) 0.6 % Neut # (Auto) 7.20 (1.8-7.7) 10^3/u L Lymph # (Auto) 1.5 (0.8-4.8) 10^3/u L [place] # (Auto) 0.6 (0.2-0.9) 10^3/u L Eos # (Auto) 0.3 (0.0-0.8) 10^3/u L Baso # (Auto) 0.1 (0.0-0.1) 10^3/u L Nucleated RBC % (a uto) 0 % Nucleated RBCs # 0.0 /100WBC PT 13.50 (12.1-14.9) SECO NDS INR 1.00 (0.8-1.2) Sodium 138 (136-145) mmol/L Potassium 4.1 (3.5-5.1) mmol/L Chloride 101 (98-107) mmol/L Carbon Dioxide 25 (22-29) mmol/L Anion Gap 16.1 (5-19) BUN 8 (6-20) mg/dL Creatinine 0.6 (0.5-0.9) mg/dL GFR Calculation 103.4 (90-130) mL/min Glucose 111 (65-115) mg/dL Calculated Osmolal ity 285 (285-295) mOsm/k g Calcium 10.2 (8.5-10.5) mg/dL Total Bilirubin 0.2 (0.15-1.2) mg/dL AST 27 (0-32) U/L ALT 40 H (0-33) U/L Alkaline Phosphata se 95 (35-105) IU/L Total Protein 7.4 (6.6-8.7) g/dL Albumin 3.9 (3.5-5.2) g/dL Globulin 3.5 (1.3-4.6) g/dL Fluid Color Fluid Appearance Fluid WBC /uL Fluid RBC 10^3/uL Fld Polynuclear WB Cs # Fld Polynuclear WB Cs % % Fl Mononucl WBCs # (Auto) Fl Mononuclear % A uto % Pleural pH (6.5-7.5) Pleural Total Prot ein g/dL Pleural LDH U/L Pleural Glucose mg/dL 06/05/20 Range/Units 14:00 WBC (4.0-10.0) 10^3/ uL RBC (4.1-5.3) 10^6/u L Hgb (11.5-15.3) g/dL Hct (37.0-47.0) % MCV (81-99) fL MCH (28.0-34.0) pg MCHC (30.0-36.0) g/dL RDW (12.1-15.1) % Plt Count (130-400) 10^3/c mm MPV (7.4-10.4) fL Neut % (Auto) % Lymph % (Auto) % [place] % (Auto) % Eos % (Auto) % Baso % (Auto) % Neut # (Auto) (1.8-7.7) 10^3/u L Lymph # (Auto) (0.8-4.8) 10^3/u L [place] # (Auto) (0.2-0.9) 10^3/u L Eos # (Auto) (0.0-0.8) 10^3/u L Baso # (Auto) (0.0-0.1) 10^3/u L Nucleated RBC % (a uto) % Nucleated RBCs # /100WBC PT (12.1-14.9) SECO NDS INR (0.8-1.2) Sodium (136-145) mmol/L Potassium (3.5-5.1) mmol/L Chloride (98-107) mmol/L Carbon Dioxide (22-29) mmol/L Anion Gap (5-19) BUN (6-20) mg/dL Creatinine (0.5-0.9) mg/dL GFR Calculation (90-130) mL/min Glucose (65-115) mg/dL Calculated Osmolal ity (285-295) mOsm/k g Calcium (8.5-10.5) mg/dL Total Bilirubin (0.15-1.2) mg/dL AST (0-32) U/L ALT (0-33) U/L Alkaline Phosphata se (35-105) IU/L Total Protein (6.6-8.7) g/dL Albumin (3.5-5.2) g/dL Globulin (1.3-4.6) g/dL Fluid Color Slight pink Fluid Appearance Bloody Fluid WBC 1304 /uL Fluid RBC 29.000 10^3/uL Fld Polynuclear WB Cs # 0.095 Fld Polynuclear WB Cs % 7.200 % Fl Mononucl WBCs # (Auto) 1.209 Fl Mononuclear % A uto 92.800 % Pleural pH 8.00 H (6.5-7.5) Pleural Total Prot ein 4.9 g/dL Pleural LDH 539 U/L Pleural Glucose 114.0 mg/dL Discharge Plan Discharge Patient Disposition: Home Clinical Impression: Pleural effusion Condition: Stable Prescriptions: No Action lorazepam 0.5 mg tablet 0.5 mg PO BID PRN (Reason: anxiety) Qty: 30 RF: 1 (DME) bledso See Rx Instructions .Route .MEDSUPPLY Qty: 1 RF: 0 (DME) Hinged Knee Brace See Rx Instructions .Route .MEDSUPPLY Qty: 1 RF: 0 levofloxacin 750 mg tablet 750 mg PO DAILY 10 Days Qty: 10 RF: 0 promethazine-codeine 6.25-10 mg/5 mL syrup 5 ml PO Q6H PRN (Reason: cough) Qty: 160 RF: 0 Zyrtec 10 mg capsule 10 mg PO DAILY RF: 0 albuterol sulfate [Ventolin HFA] 90 mcg/actuation HFA aerosol inhaler 2 puff INHALATION Q6H PRN (Reason: shortness of breath or wheezing) Qty: 8.5 RF: 0 Nexium 20 mg Capsule,Delayed Release(Dr/Ec) 20 mg PO BID RF: 0 Discharge Orders: Discharge Order (Routine); Ordered 06/05/20 Ordered By: Priscila Barney Referrals: Mehdi Cedeno MD [Physician] - 2 weeks Judith Yee MD [Primary Care Provider] - Discharge Diet: Usual diet Discharge Activity: Resume usual activity Patient Instructions: Pleural Effusion (ED) Activity Restrictions/Additional Instructions: Follow up with Dr. Cedeno in about two weeks - if you do not hear from his office on Monday, then call them to confirm the referral. Return to the ED if fever, worsening symptoms or any other new or concerning symptoms. Continue regular medications. Discharge Date/Time: 06/05/20 15:12 Coding Level of Care Code ED Mechanical Apprentice for Robertg Fwd Exam Comprehensive
[2020-06-05 10:16] VITALS: BP 118/82; PULSE 110; O2SAT 95
[2020-06-05 11:48] VITALS: BP 146/84; PULSE 113; RESP 17; O2SAT 95
--- NOTE | 2020-06-05 14:01 | XR_ITS ---
WS: [id number] Portable AP upright chest, 06/05/2020 Clinical Data: post thoracentesis Comparison: PA and lateral chest, 05/27/2020. Findings: There is elevation of the right diaphragm but there also may be a large right pleural effus ion. Atelectasis is also possible in the right lung base The pulmonary vascularity is not increased. The left lung is clear. There are monitor leads on the chest wall. There are clips in the right axill a from surgery. No pneumothorax is present. The heart size is probably normal. XR/XR chest 1V portable [id number] Impression: 1. No significant change in effusion or atelectasis in the right lung base. 2. Negative for significant pneumothorax.
--- NOTE | 2020-06-05 14:06 | PM.ACPR ---
Procedure/Consent Time out: Time Out Performed: Yes Consent: Consent for Procedure: Consent obtained from patient Procedure Narrative: Name of the procedure: Right thoracentesis under ultrasound guidance. Indication: Suspicion for malignant pleural effusion Anesthetics: Local anesthesia with 1% lidocaine. IV pain medication: None. Description of the procedure: The procedure was explained to the patient in detail including the risks and a consent was obtained. The right hemithorax was scanned with ultrasound to find a safe fluid pocket. Large free-flowing fluid was noted. There was no complexity. Following identification of the fluid pocket the site was marked. The site was cleaned using sterile technique. Lidocaine 1% was injected into the skin and the subcutaneous tissue. Subsequently, the periosteum in the parietal pleural was also anesthetized using lidocaine. The pleural space was entered in the posterior axillary line in the right seventh intercostal space. Serosanguineous fluid was aspirated. About 1600 cc of fluid was aspirated. Sample: The pleural fluid was sent for cell count and differential, pH, protein, LDH, albumin, Gram stain and culture, fungal stain and culture, AFB stain and culture and cytology. Postprocedure chest x-ray is pending Acute Procedures Epistaxis Control: Time out performed: Yes
[2020-06-05 14:08] VITALS: BP 144/95; PULSE 122; RESP 16; O2SAT 96
--- NOTE | 2020-06-05 14:51 | P.CONIM_ITS ---
Providers/Reason For Consult Consulting Physican/Specialty*: Pulmonary critical care medicine Reason for Consult*: Large right-sided pleural effusion with shortness of breath Primary Care Provider: Judith Yee MD History of Present Illness History of Present Illness Agatha Hoffman is a 55 year old female who presented to the hospital with worsening shortness of breath. 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 The patient had completed her therapy late last year. The patient is following up with Dr. Hernández. The patient has been doing fairly well however over the past couple of months her shortness of breath has progressively been getting worse. Her chest x-ray from May 27 revealed right-sided pleural effusion. There is no pleural effusion on the chest x-ray in June 2019. The patient underwent a CT scan of the chest after arriving to the emergency department today. She has a large right-sided effusion with compressive atelectasis. There was some mass-effect with mediastinal shift to the left side. Pleural-based nodules are also seen in the right suggestive of pleural metastatic disease. No significant medicine or hilar lymphadenopathy was noted. The patient denies any significant fever, night sweats, chills. She did complain of cough. She has been using an inhaler for the past couple of weeks with improvement in her symptoms. She had also received antibiotic therapy. Review of Systems General: Reports: 10 or more systems reviewed and unremarkable except in HPI and below Meds/Allergies Home Medications and Allergies Home Medications Medication Instructions Recorded Confirmed Last Taken Type bledso #1 ea NS 04/15/20 06/05/20 Unknown Rx lorazepam 0.5 mg tablet 0.5 mg PO BID PRN #30 tab 05/08/20 06/05/20 06/02/20 Rx Hinged Knee Brace #1 ea 05/25/20 06/05/20 Unknown Rx albuterol sulfate 90 mcg/actuation 2 puff INHALATION Q6H PRN #8.5 gm 05/27/20 06/05/20 Unknown Rx aerosol inhaler cetirizine 10 mg capsule 10 mg PO DAILY 05/27/20 06/05/20 06/05/20 History levofloxacin 750 mg tablet 750 mg PO DAILY 10 Days #10 tab 06/03/20 06/05/20 06/04/20 Rx promethazine 6.25 mg-codeine 10 5 ml PO Q6H PRN #160 ml 06/04/20 06/05/20 06/05/20 04:30 Rx mg/5 mL syrup esomeprazole magnesium [Nexium] 20 mg PO BID 06/05/20 06/05/20 06/05/20 History Allergies Allergy/AdvReac Type Severity Reaction Status Date / Time adhesive tape Allergy Severe ALGY-Rash Verified 06/03/20 10:44 NSAIDS (Non-Steroidal AdvReac Severe ADR-Vomitin Verified 06/03/20 10:44 Anti-Inflamma g PFSH Acute PFSH: Medical History Arthritis Hiatal hernia History of breast cancer Migraine Postmenopausal Rotator cuff syndrome Surgical History History of delivery History of left total mastectomy History of right total mastectomy Family History Family/Other Cancer breast Denies family history of Anesthesia complication Bleeding disorder Social History Smoking and tobacco status: former smoker Second hand smoke exposure: No Alcohol intake: never Adopted: No Caregiver/support person: No Lives independently: Yes Household members: family Housing: House Marital status: Single Highest education level completed: High School Graduate service: Yes Current occupational status: retired Current occupational exposures/hazards: No Pets and animals: No History of recent travel: No Sexually active: No Current gender identity: Female Isamar/Anabaptist: Confucianism Special isamar needs: No Agree to transfusion: No Financial difficulty paying for basics: Decline to Answer Female Reproductive History: Date of last menstrual period: 06/04/17 Vitals/I&O/Wt Last Vital Signs Temp 98.5 F 06/05/20 09:25 Pulse 122 H 06/05/20 14:08 Resp 16 06/05/20 14:08 BP 144/95 06/05/20 14:08 Pulse Ox 96 06/05/20 14:08 Weight last 48 hrs Weight 238 lb Physical Exam Narrative: EXAM NARRATIVE: General: Patient is awake alert and oriented, in no distress. Neck: No JVD, trachea mildly shifted to the left Respiratory: Reduced breath sound in the right hemithorax, stony dull percussion note Cardiovascular: Tachycardia, normal rhythm, S1-S2 present, no murmur, mild peripheral edema. Abdomen: Soft, nontender, mildly distended, positive bowel sound Musculoskeletal: No obvious joint deformity Skin: No rash Neuro: Mental status is normal, no gross cranial nerve deficit, normal motor and coordination. Data Other Data: Attestation for Other Data: I personally reviewed and interpreted the following: Other data: I have reviewed the patient's laboratory, microbiologic and radiologic data. Please see my HPI for details. 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 She has evidence of mediastinal shift. 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 She has a history of metastatic breast cancer. On the CT scan of the chest there is evidence of pleural nodularity likely secondary to metastatic disease. I am going to perform a diagnostic and therapeutic thoracentesis and send the pleural fluid for cytology in addition to other studies. I have asked the patient to follow-up with me in 2 weeks time in the office however if she becomes symptomatic before that I have asked her to call our office and follow-up with my colleague. The plan was discussed in detail with the patient and her sister was present at bedside. Status: Acute Coding Level of Care Code Acute Commissary Assistant for Román Mathew Diagnoses Pleural effusion J90
[2020-06-05 15:00] LABS: Basophils # 0.1 10^3/uL (0.0-0.1); Basophils % 0.6 %; Eosinophils # 0.3 10^3/uL (0.0-0.8); Eosinophils % 2.7 %; Hemoglobin 13.1 g/dL (11.5-15.3); Lymphocytes # 1.5 10^3/uL (0.8-4.8); Lymphocytes % 15.6 %; Mean Corpuscular HGB Conc 30.5 g/dL (30.0-36.0); Mean Corpuscular Hemoglobin 26.4 pg (28.0-34.0); Mean Corpuscular Volume 86.5 fL (81-99); Monocytes # 0.6 10^3/uL (0.2-0.9); Monocytes % 5.8 %; Neutrophils % 74.9 %; Nucleated Red Blood Cells % 0 %; Platelet Count 400 10^3/cmm (130-400); Red Blood Count 4.97 10^6/uL (4.1-5.3); Red Cell Distribution Width 13.7 % (12.1-15.1); White Blood Count 9.6 10^3/uL (4.0-10.0)
[2020-06-05 15:01] LABS: Body Fluid Polynuclear #Cells 0.095; Body Fluid WBC 1304 /uL; Monocytes # Body Fluid 1.209
[2020-06-05 15:01] LABS: Alanine Aminotransferase 40 U/L (0-33); Albumin Level 3.9 g/dL (3.5-5.2); Alkaline Phosphatase 95 IU/L (35-105); Anion Gap 16.1 (5-19); Aspartate Amino Transferase 27 U/L (0-32); Blood Urea Nitrogen 8 mg/dL (6-20); Calcium 10.2 mg/dL (8.5-10.5); Carbon Dioxide 25 mmol/L (22-29); Chloride 101 mmol/L (98-107); Globulin 3.5 g/dL (1.3-4.6); Glomerular Filtration Rate 103.4 mL/min (90-130); Glucose 111 mg/dL (65-115); Osmolality Calculated 285 mOsm/kg (285-295); Potassium 4.1 mmol/L (3.5-5.1); Sodium 138 mmol/L (136-145); Total Bilirubin 0.2 mg/dL (0.15-1.2); Total Protein 7.4 g/dL (6.6-8.7)
[2020-06-05 15:07] LABS: LDH Pleural Fluid 539 U/L; Total Protein Pleural Fluid 4.9 g/dL
[2020-06-05 15:08] LABS: Apprearance, Body Fluid BLOODY; Color, Body Fluid SLIGHT PINK
[2020-06-05 15:12] VITALS: BP 118/91; PULSE 112; RESP 21; O2SAT 94
--- NOTE | 2020-06-09 09:28 | DCPLANNER ---
manager commercial real estate was asked to schedule a follow up appointment for patient with [facility], pulmonolgy. manager commercial real estate called [facility], spoke with Jada, gave clinic patients information. A follow up appointment is scheduled for , June 18, 2020 at 8:[address] Baugh. manager commercial real estate was told that patient is aware of appointment.
--- NOTE | 2020-06-26 18:18 | DCPLANNER ---
Patient had a follow up appointment scheduled for 06.18.20 with [facility] - patient did attend appointment.
== END 2020-06-05 15:12 | disposition home or self-care (01) ==
PROVIDERS: Internal Medicine Critical Care Medicine; Emergency Provider Emergency Medicine; PCP Family Medicine
DX: J90 Pleural effusion, not elsewhere classified (principal); Z85.3 Personal history of malignant neoplasm of breast; Z87.891 Personal history of nicotine dependence
CPT/HCPCS: 12345; 36415; 71045; 80053; 80500; 82945; 83615; 83986; 84157; 85025; 85610; 87015; 87070; 87075; 87102; 87116; 87205; 87206; 87801; 88112; 88305; 89050; 99282; 99284

== ENCOUNTER 2020-06-10 10:05 | Outpatient (CLI) | payer OTHER, SELFPAY ==
[2020-06-10 13:19] LABS: Basophils % 0.5 %; Eosinophils # 0.3 10^3/uL (0.0-0.8); Hemoglobin 15.4 g/dL (11.5-15.3); Lymphocytes # 1.3 10^3/uL (0.8-4.8); Lymphocytes % 20.3 %; Mean Corpuscular HGB Conc 30.2 g/dL (30.0-36.0); Mean Corpuscular Hemoglobin 26.3 pg (28.0-34.0); Mean Platelet Volume 9.5 fL (7.4-10.4); Monocytes # 0.4 10^3/uL (0.2-0.9); Monocytes % 5.7 %; Neutrophils # 4.46 10^3/uL (1.8-7.7); Neutrophils % 68.7 %; Nucleated Red Blood Cells % 0 %; Platelet Count 291 10^3/cmm (130-400); Red Blood Count 5.86 10^6/uL (4.1-5.3); Red Cell Distribution Width 13.8 % (12.1-15.1); White Blood Count 6.5 10^3/uL (4.0-10.0)
[2020-06-10 13:33] LABS: Alanine Aminotransferase 29 U/L (0-33); Albumin Level 3.8 g/dL (3.5-5.2); Alkaline Phosphatase 87 IU/L (35-105); Anion Gap 13.8 (5-19); Aspartate Amino Transferase 22 U/L (0-32); Blood Urea Nitrogen 8 mg/dL (6-20); Calcium 9.3 mg/dL (8.5-10.5); Carbon Dioxide 28 mmol/L (22-29); Chloride 99 mmol/L (98-107); Globulin 3.2 g/dL (1.3-4.6); Glomerular Filtration Rate 127.6 mL/min (90-130); Glucose 83 mg/dL (65-115); Osmolality Calculated 281 mOsm/kg (285-295); Potassium 3.8 mmol/L (3.5-5.1); Sodium 137 mmol/L (136-145); Total Bilirubin 0.2 mg/dL (0.15-1.2)
== END 2020-06-10 10:06 | disposition home or self-care (01) ==
LOC: ONCMED 12:16
PROVIDERS: PCP Family Medicine; Visit Provider Internal Medicine Hematology & Oncology
DX: C50.411 Malignant neoplasm of upper-outer quadrant of right female breast (principal); Z17.1 Estrogen receptor negative status [ER-]
CPT/HCPCS: 80053; 85025

== ENCOUNTER 2020-06-18 06:00 | Outpatient (CLI) | payer OTHER, SELFPAY ==
--- NOTE | 2020-06-18 16:34 | ONC FU_ITS ---
Dr. Hernández follow up note Patient: Agatha Hoffman Unit #: [id number]: [id number] Dicatated By: Laurita Hernández M.D.Date of Visit:Jun 18, 2020 Onc Med Follow-up/Prog Note History of Present Illness: Ms. Hoffman is a 55-year-old female with long-standing history of right breast lump. She underwent right breast biopsy about 6 years ago, at that time she was told it was a benign. Recently she noticed pain and discomfort in her right breast so underwent bilateral mammogram on 12/05/2018. It was BI-RADS Category 0, incomplete, due to dense breast, repeat ultrasound was recommended which was done on 12/06/2018 which showed BI-RADS Category 5, highly suggestive of malignancy in the 10 to 11:00 position in the right breast patient underwent ultrasound-guided biopsy of right breast on 12/20/2018 which showed triple negative infiltrating ductal carcinoma.BRCA1/2 came back negative Patient denied any nipple discharge patient denies any nipple retraction, but complaining of discomfort in her right breast, denies any right axillary fullness, denies any trauma to her breast. She also denied any bony pain. History of back pain due to back injury about 15 years ago and intolerance to NSAIDs because of persistent severe nausea vomiting. Ms Hoffman underwent right modified radical mastectomy with right axilla lymph node dissection On 01/15/2019. The final pathology report showed 2.5 x 1.5 cm infiltrating ductal carcinoma, 0 out of 3 lymph nodes showed metastatic disease. Echocardiogram done on 02/07/2019 showed a Ejection fraction 77.3% Ms Hoffman started on adjuvant chemotherapy with dose dense Adriamycin Cytoxan With Neulasta support (to prevent chemotherapy-induced neutropenia) on 02/19/2019. s/p 4 doses of Adriamycin Cytoxan. She was transitioned to weekly paclitaxel on 04/29/2019. She had issues with hyperglycemia due to steroids; so on 06/10/2019 paclitaxel was switched to Abraxane for the remaining 6 doses of her planned therapy and completed on 08/05/2019 On 05/31/2019 she developed painful, clear fluid filled blisters on her mid upper back area. She went to emergency room where she was given acyclovir for shingles- now resolved. On 06/16/2019 she was admitted to hospital with not feeling well, fever of with yellowish phlegm and was treated as inpatient with IV antibiotics and felt better. She had some residual neuropathy but states it is no worse than what it has been. worsening bilateral hip pain and lower back pain . She states is been there forever and is chronic. She is also having worsening knee pain but states that hips are worse. She is had no recent trauma or falls. She states the pain just seems to be more persistent and does not let up. She does try Tylenol and Aleve. She states she is taken hydrocodone in the past with good relief. At least allowed her to get her activities of daily living accomplished in a timely manner. For which she underwent MRI scan of the pelvis on 08/16/2019 which showed no evidence of metastatic disease, moderate degenerative arthritis both hips. No sacral fracture and no bony metastases. She is also having some vision changes and that she is having wavy vision which she states is happened in the past with an aura before she had a migraine headache.For which she underwent MRI scan of the head on 08/16/2019 which showed no evidence of metastatic disease. Echocardiogram done on 08/05/2019 showed ejection fraction 65% off and on right shoulder pain, for the last 15 years, now progressive, as per patient, in the past she was told pain is due to problem with her rotator cuff and now pain is becoming bothersome. Cannot take Motrin the cause of intolerance so trying Tylenol with some help.-For which she underwent MRI scan of the C-spine on October 06, 2019 which showed central disc osteophyte protrusion at C5-C6 also had MRI scan of right shoulder done on January 03, 2020 which showed moderate degenerative arthritis at the AC joint with a mild edema and mild downsloping of acromion with subacromial spurring. Chronic tenting of supraspinatus and tiny intrasubstance tear distally. Patient was given steroid injection in the right shoulder with that her pain improved significantly. Patient recently underwent prophylactic left mastectomy on 10/08/2019. progressive shortness of breath and right lower chest pain and cough, as per patient about 2 months ago, she fell in her porch and injured her left knee torn ACL and her leg was immobilized for 6 weeks and then to reevaluate for surgical options. Patient said on April 04, 2020 she started experience shortness of breath, no fever, no hemoptysis no hematemesis she thought it was due to allergies as she has many cats and went to see her PMD who gave her Claritin, without much help then he was switched to Zyrtec her shortness of breath continue worse eventually she had a chest x-ray done which showed right pleural effusion subsequently underwent CT scan of chest on June 04, 2020 which showed large right pleural effusion with compressive atelectasis in the right lower lobe mild right to left mass-effect on the mediastinum. Numerous enhancing pleural-based nodules involving the right pleura posteriorly along the right lower lobe and extending along the right hemidiaphragm. Enhancing pleural-based nodules throughout the right lung and extending along the anterior mediastinum suspicious for pleural-based metastatic disease. Left lung clear no mediastinal or hilar lymphadenopathy, mild diffuse fatty infiltration of the liver.Patient was referred to pulmonology for evaluation on June 05, 2020 patient underwent right thoracentesis and about 2 L of bloody fluid was removed and patient felt better immediately and fluid was sent for cytology which came back as negative for malignancy Came for follow-up, complaining of progressive shortness of breath, dyspnea on exertion but no hemoptysis or hematemesis, no nausea or vomiting, no diarrhea constipation no fever chills, patient has seen Dr. Cedeno recently and now scheduled for thoracentesis in the morning at 10;30 and repeat cytology. Medications: Acetaminophen 1 Tablet (of 500 mg) Oral PRN, Albuterol Sulfate 1 - 2 Puff(s) (of 108 (90 base) mcg/act) Aerosol Powder, Breath Activated Inhalation q 4 hours PRN, Cetirizine HCl 1 Tablet (of 10 mg) Oral daily, Claritin 1 Tablet (of 10 mg) Oral daily, Cyclobenzaprine HCl 1 Tablet (of 10 mg) Oral t.i.d. PRN, LORazepam 0.5 - 1 Tablet (of 1 mg) Oral t.i.d. PRN, NexIUM 1 Capsule (of 20 mg) Capsule Delayed Release Oral daily, Prochlorperazine Maleate 1 Tablet Oral q 4 hours PRN, Promethazine-Codeine 5 mL (of 6.25-10 mg/5mL) Syrup Oral q 6 hours PRN, Zofran 1 Tablet (of 4 mg) Oral q 6 hours PRN Allergies: Ibuprofen and NSAIDs. Review of Systems: Constitutional - Appetite is good and weight is stable. No fever, night sweats, or hot flashes. Energy level is [id number], ENMT - No sinus congestion/drainage. No mouth sores. No sore throat or difficulty swallowing, Hematologic/Lymphatic - No abnormal bruising or bleeding, Respiratory - Positive for shortness of breath. Positive for cough. No pleuritic pain or hemoptysis, Cardiovascular - No angina pain. No palpitations, Gastrointestinal - No nausea or vomiting. No heartburn or acid reflux. No diarrhea or constipation. No blood in the stool or black stools, Genitourinary (F) - No dysuria or hematuria. No urinary frequency. No urgency or incontinence, Musculoskeletal - Positive for pain in left knee (Pt tore ACL), Neurologic - No headache or dizziness. No numbness or tingling. No other focal neurologic symptoms, Psychiatric - No anxiety or depression. No insomnia. Vital Signs: Performed on Jun 18, 2020 16:08 Height - 69.00 in Weight - 235.8 lbs BSA - 2.22 sq.m BMI - 34.82 (HIGH) Temperature - 97.0 F (LOW) Pulse - 128 /min (HIGH) Respiration - 26 /min BP - 135/88 mm(hg) O2 Sat - 97 % Pain - 2 Performance Status: 1 - No physically strenuous activity, but ambulatory and able to carry out light or sedentary work (e.g. office work, light house work). (ECOG) Physical Examination: Respiratory - No breath sound at right lung base otherwise clear, Cardiovascular - Regular rate and rhythm of heart, Gastrointestinal - Soft, bowel sounds present, Extremities - No visible edema. Lab/Imaging: Test performed on Mar 20, 2020 08:35 Glucose 81 mg/dL BUN 8 mg/dL Creatinine 0.6 mg/dL Cr Clearance (Est) 172.58 mL/min Sodium 141 mmol/L Potassium 4.6 mmol/L Chloride 102 mmol/L CO2 28 mmol/L Calcium 9.3 mg/dL Protein, Total 7.5 g/dL Albumin 4.2 g/dL Globulin 3.3 g/dL Bilirubin, Total 0.2 mg/dL Alkaline Phosphatase 89 IU/L AST (SGOT) 15 IU/L ALT (SGPT) 25 IU/L WBC 7.7 10^9/L RBC 5.10 10^12/L HGB 13.6 g/dL HCT 45.1 % MCV 88.4 fl MCH 26.7 pg MCHC 30.2 g/dL RDW 15.8 % Platelet Count 323 10^9/L MPV 10.0 fL Neutrophils (Gran) 5.19 10^9/L Lymphocytes 1.8 10^9/L Monocytes 0.4 10^9/L Eosinophils 0.2 10^9/L Basophils 0.0 10^9/L Manual Lymphocytes 23.4 % Manual Monocytes 5.2 % Manual Eosinophils 2.9 % Manual Basophils 0.5 % Impression: Status post right modified radical mastectomy with right axillary lymph node dissection done on 01/15/2019 showed infiltrating ductal carcinoma tumor size 2.5 x 1.5 cm, T2 and 0/3 lymph node positive for metastatic disease e.g. and 0, DCIS component comprises 15% of tumor volume. Stage IIa Infiltrating ductal carcinoma of right breast status post ultrasound-guided biopsy done on 12/20/2018, final pathology report showed infiltrating ductal carcinoma grade 3, Ki-67 40%, unfavorable, estrogen receptor less than 1%, negative progesterone receptor less than 1%, negative HER-2/angelia 1+, negative for HER-2/angelia overexpression by IHC and over amplification by FISH. BRCA1/2 testing done 02/07/2019 , came back negative Status post left prophylactic mastectomy done on 10/08/2019 Started on dose dense chemotherapy with Adriamycin Cytoxan every 2 weeks ???4 on 02/19/2019, will be followed by weekly Taxol ???12. She tolerated A/C well. She was transitioned to weekly paclitaxel. After 6 dose of weekly Taxol, she was changed to weekly Abraxane due to persistent hyperglycemia due to steroids. completed on 08/05/2019 Chronic hip pain due to chronic arthritis involving bilateral hip as per MRI scan of pelvis done on done on 08/16/2019 showed no evidence of metastatic disease.Chronic right shoulder pain due to rotator cuff, off and on for last 15 years Plan: Discussed with patient regarding her right pleural fluid cytology report from June 05, 2020, which showed no evidence of malignancy. Patient has progressive right pleural effusion which is symptomatic and now repeat thoracentesis in the morning is under consideration, will request pulmonology to send fluid for cytology., Will also consider referral to Dr. Chiang, cardiothoracic surgery for evaluation in case Case repeat cytology shows no evidence of malignancy done, she may benefit from thoracoscopy with direct visualization pleural-based nodule for better biopsy and results. Patient return to clinic Monday week for further discussion. Signed By: Laurita Hernández M.D. <<Signature on File>>
== END 2020-06-18 06:01 | disposition home or self-care (01) ==
LOC: ONCMED 06:00
PROVIDERS: PCP Family Medicine; Visit Provider Internal Medicine Hematology & Oncology
DX: J90 Pleural effusion, not elsewhere classified (principal); C50.411 Malignant neoplasm of upper-outer quadrant of right female breast; Z17.1 Estrogen receptor negative status [ER-]; Z90.13 Acquired absence of bilateral breasts and nipples; M16.0 Bilateral primary osteoarthritis of hip; M25.511 Pain in right shoulder
CPT/HCPCS: 99214

== ENCOUNTER → 2020-06-19 12:30 | Outpatient (BNVA) | payer OTHER, SELFPAY | PROVIDERS: PCP Family Medicine; Visit Provider Internal Medicine Critical Care Medicine | DX: J90 Pleural effusion, not elsewhere classified (principal) | CPT/HCPCS: 80500; 82945; 83615; 83986; 84157; 89050 ==

== ENCOUNTER 2020-06-26 11:25 | Outpatient (CLI) | payer OTHER, SELFPAY ==
[2020-06-26 11:32] LABS: Basophils # 0.1 10^3/uL (0.0-0.1); Basophils % 0.6 %; Eosinophils # 0.4 10^3/uL (0.0-0.8); Eosinophils % 4.6 %; Hematocrit 42.6 % (37.0-47.0); Hemoglobin 12.8 g/dL (11.5-15.3); Lymphocytes # 1.3 10^3/uL (0.8-4.8); Mean Corpuscular Hemoglobin 26.2 pg (28.0-34.0); Mean Corpuscular Volume 87.3 fL (81-99); Mean Platelet Volume 9.3 fL (7.4-10.4); Monocytes # 0.5 10^3/uL (0.2-0.9); Monocytes % 6.3 %; Neutrophils # 5.74 10^3/uL (1.8-7.7); Nucleated Red Blood Cells % 0 %; Platelet Count 411 10^3/cmm (130-400); Red Blood Count 4.88 10^6/uL (4.1-5.3); Red Cell Distribution Width 13.9 % (12.1-15.1)
[2020-06-26 12:05] LABS: Alanine Aminotransferase 32 U/L (0-33); Alkaline Phosphatase 100 IU/L (35-105); Anion Gap 14.2 (5-19); Aspartate Amino Transferase 22 U/L (0-32); Blood Urea Nitrogen 11 mg/dL (6-20); CA 15-3 43.5 U/mL (0-25); Calcium 9.7 mg/dL (8.5-10.5); Cancer Antigen 19 9 15.05 U/mL (0-35); Carbon Dioxide 29 mmol/L (22-29); Chloride 100 mmol/L (98-107); Globulin 3.5 g/dL (1.3-4.6); Glomerular Filtration Rate 127.6 mL/min (90-130); Glucose 100 mg/dL (65-115); Osmolality Calculated 287 mOsm/kg (285-295); Potassium 4.2 mmol/L (3.5-5.1); Sodium 139 mmol/L (136-145); Total Bilirubin 0.2 mg/dL (0.15-1.2); Total Protein 7.5 g/dL (6.6-8.7)
== END 2020-06-26 11:26 | disposition home or self-care (01) ==
LOC: ONCMED 11:25
PROVIDERS: PCP Family Medicine; Visit Provider Internal Medicine Hematology & Oncology
DX: C50.411 Malignant neoplasm of upper-outer quadrant of right female breast (principal); Z17.1 Estrogen receptor negative status [ER-]
CPT/HCPCS: 36415; 80053; 85025; 86300; 86301

== ENCOUNTER 2020-07-14 08:13 | Outpatient (CLI) | payer OTHER, SELFPAY ==
--- NOTE | 2020-07-14 11:16 | ONC FU_ITS ---
Dr. Hernández follow up note Patient: Agatha Hoffman Unit #: [id number]: [id number] Dicatated By: Laurita Hernández M.D.Date of Visit:Jul 14, 2020 Onc Med Follow-up/Prog Note History of Present Illness: Ms. Hoffman is a 55-year-old female with long-standing history of right breast lump. She underwent right breast biopsy about 6 years ago, at that time she was told it was a benign. Recently she noticed pain and discomfort in her right breast so underwent bilateral mammogram on 12/05/2018. It was BI-RADS Category 0, incomplete, due to dense breast, repeat ultrasound was recommended which was done on 12/06/2018 which showed BI-RADS Category 5, highly suggestive of malignancy in the 10 to 11:00 position in the right breast patient underwent ultrasound-guided biopsy of right breast on 12/20/2018 which showed triple negative infiltrating ductal carcinoma.BRCA1/2 came back negative Patient denied any nipple discharge patient denies any nipple retraction, but complaining of discomfort in her right breast, denies any right axillary fullness, denies any trauma to her breast. She also denied any bony pain. History of back pain due to back injury about 15 years ago and intolerance to NSAIDs because of persistent severe nausea vomiting. Ms Hoffman underwent right modified radical mastectomy with right axilla lymph node dissection On 01/15/2019. The final pathology report showed 2.5 x 1.5 cm infiltrating ductal carcinoma, 0 out of 3 lymph nodes showed metastatic disease. Echocardiogram done on 02/07/2019 showed a Ejection fraction 77.3% Ms Hoffman started on adjuvant chemotherapy with dose dense Adriamycin Cytoxan With Neulasta support (to prevent chemotherapy-induced neutropenia) on 02/19/2019. s/p 4 doses of Adriamycin Cytoxan. She was transitioned to weekly paclitaxel on 04/29/2019. She had issues with hyperglycemia due to steroids; so on 06/10/2019 paclitaxel was switched to Abraxane for the remaining 6 doses of her planned therapy and completed on 08/05/2019 On 05/31/2019 she developed painful, clear fluid filled blisters on her mid upper back area. She went to emergency room where she was given acyclovir for shingles- now resolved. On 06/16/2019 she was admitted to hospital with not feeling well, fever of with yellowish phlegm and was treated as inpatient with IV antibiotics and felt better. She had some residual neuropathy but states it is no worse than what it has been. worsening bilateral hip pain and lower back pain . She states is been there forever and is chronic. She is also having worsening knee pain but states that hips are worse. She is had no recent trauma or falls. She states the pain just seems to be more persistent and does not let up. She does try Tylenol and Aleve. She states she is taken hydrocodone in the past with good relief. At least allowed her to get her activities of daily living accomplished in a timely manner. For which she underwent MRI scan of the pelvis on 08/16/2019 which showed no evidence of metastatic disease, moderate degenerative arthritis both hips. No sacral fracture and no bony metastases. She is also having some vision changes and that she is having wavy vision which she states is happened in the past with an aura before she had a migraine headache.For which she underwent MRI scan of the head on 08/16/2019 which showed no evidence of metastatic disease. Echocardiogram done on 08/05/2019 showed ejection fraction 65% off and on right shoulder pain, for the last 15 years, now progressive, as per patient, in the past she was told pain is due to problem with her rotator cuff and now pain is becoming bothersome. Cannot take Motrin the cause of intolerance so trying Tylenol with some help.-For which she underwent MRI scan of the C-spine on October 06, 2019 which showed central disc osteophyte protrusion at C5-C6 also had MRI scan of right shoulder done on January 03, 2020 which showed moderate degenerative arthritis at the AC joint with a mild edema and mild downsloping of acromion with subacromial spurring. Chronic tenting of supraspinatus and tiny intrasubstance tear distally. Patient was given steroid injection in the right shoulder with that her pain improved significantly. Patient recently underwent prophylactic left mastectomy on 10/08/2019. progressive shortness of breath and right lower chest pain and cough, as per patient about 2 months ago, she fell in her porch and injured her left knee torn ACL and her leg was immobilized for 6 weeks and then to reevaluate for surgical options. Patient said on April 04, 2020 she started experience shortness of breath, no fever, no hemoptysis no hematemesis she thought it was due to allergies as she has many cats and went to see her PMD who gave her Claritin, without much help then he was switched to Zyrtec her shortness of breath continue worse eventually she had a chest x-ray done which showed right pleural effusion subsequently underwent CT scan of chest on June 04, 2020 which showed large right pleural effusion with compressive atelectasis in the right lower lobe mild right to left mass-effect on the mediastinum. Numerous enhancing pleural-based nodules involving the right pleura posteriorly along the right lower lobe and extending along the right hemidiaphragm. Enhancing pleural-based nodules throughout the right lung and extending along the anterior mediastinum suspicious for pleural-based metastatic disease. Left lung clear no mediastinal or hilar lymphadenopathy, mild diffuse fatty infiltration of the liver.Patient was referred to pulmonology for evaluation on June 05, 2020 patient underwent right thoracentesis and about 2 L of bloody fluid was removed and patient felt better immediately and fluid was sent for cytology which came back as negative for malignancy, Repeat right thoracentesis done on July 01, 2020 and the cytology came back rare tumor cell, metastatic carcinoma, chronic inflammation with reactive mesothelial cell and immunohistochemistry positive for CK7, CK cocktail, CK Pradeep,Christophe-EP4, and negative for GCDFP, estrogen receptor Came for follow-up, denies any specific complaint except dyspnea on exertion, pain in the right chest wall, which is under control with current pain medication. No hemoptysis or hematemesis, no jaundice, no headaches no blurred vision double vision,. Medications: Acetaminophen 1 Tablet (of 500 mg) Oral PRN, Albuterol Sulfate 1 - 2 Puff(s) (of 108 (90 base) mcg/act) Aerosol Powder, Breath Activated Inhalation q 4 hours PRN, Cetirizine HCl 1 Tablet (of 10 mg) Oral daily, Claritin 1 Tablet (of 10 mg) Oral daily, Cyclobenzaprine HCl 1 Tablet (of 10 mg) Oral t.i.d. PRN, LORazepam 0.5 - 1 Tablet (of 1 mg) Oral t.i.d. PRN, NexIUM 1 Capsule (of 20 mg) Capsule Delayed Release Oral daily, Prochlorperazine Maleate 1 Tablet Oral q 4 hours PRN, Promethazine-Codeine 5 mL (of 6.25-10 mg/5mL) Syrup Oral q 6 hours PRN, Zofran 1 Tablet (of 4 mg) Oral q 6 hours PRN Allergies: Ibuprofen and NSAIDs. Review of Systems: Constitutional - Appetite is good and weight is stable. No fever, night sweats, or hot flashes. Energy level is [id number], ENMT - No sinus congestion/drainage. No mouth sores. No sore throat or difficulty swallowing, Hematologic/Lymphatic - No abnormal bruising or bleeding, Respiratory - Positive for shortness of breath. Positive for cough. No pleuritic pain or hemoptysis, Cardiovascular - No angina pain. No palpitations, Gastrointestinal - No nausea or vomiting. No heartburn or acid reflux. No diarrhea or constipation. No blood in the stool or black stools, Genitourinary (F) - No dysuria or hematuria. No urinary frequency. No urgency or incontinence, Musculoskeletal - Positive for pain in left knee (Pt tore ACL), Neurologic - No headache or dizziness. No numbness or tingling. No other focal neurologic symptoms, Psychiatric - No anxiety or depression. No insomnia. Vital Signs: Vitals are not available for this patient. Performance Status: 1 - No physically strenuous activity, but ambulatory and able to carry out light or sedentary work (e.g. office work, light house work). (ECOG) Physical Examination: Respiratory - No breath sound at right lung base, few crackles in the right lung, left lung clear to auscultation, Cardiovascular - Regular rate and rhythm of heart, Gastrointestinal - Soft, bowel sounds present, Extremities - No visible edema. Lab/Imaging: Test performed on Jun 26, 2020 10:25 Sodium 139 mmol/L Potassium 4.2 mmol/L Chloride 100 mmol/L CO2 29 mmol/L Anion Gap 14.2 BUN 11 mg/dL Creatinine 0.5 mg/dL Cr Clearance (Est) 207.1000 mL/min eGFR 127.6 mL/min Glucose 100 mg/dL Osmolality - Calculated 287 mOsm/kg Calcium 9.7 mg/dL Protein, Total 7.5 g/dL Albumin 4.0 g/dL Globulin 3.5 g/dL Bilirubin, Total 0.2 mg/dL ALT (SGPT) 32 U/L AST (SGOT) 22 U/L Alkaline Phosphatase 100 IU/L WBC 8.0 10 3/uL RBC 4.88 10 6/uL HGB 12.8 g/dL HCT 42.6 % MCV 87.3 fL MCH 26.2 pg MCHC 30.0 g/dL RDW 13.9 % Platelet Count 411 10 3/cmm MPV 9.3 fL Neutrophils 5.74 10 3/uL Lymphocytes 1.3 10 3/uL Monocytes 0.5 10 3/uL Eosinophils 0.4 10 3/uL Basophils 0.1 10 3/uL Neutrophil % 72.0 % Lymphocyte % 16.0 % Monocyte % 6.3 % Eosinophil % 4.6 % Basophils % 0.6 % NRBC % 0 % CA 15-3 43.5 U/mL CA 19-9 15.05 U/mL Test performed on Mar 20, 2020 08:35 Manual Lymphocytes 23.4 % Manual Monocytes 5.2 % Manual Eosinophils 2.9 % Manual Basophils 0.5 % Impression: Recurrent right pleural effusion status post multiple thoracentesis finally thoracentesis done on July 01, 2020 showed immunohistochemical stain highlight rare tumor cells, metastatic carcinoma as immunohistochemistry stain positive for CK7, CK cocktail, CK Pradeep,Christophe-EP4, and negative for estrogen receptor,GCDFP CT scan of chest done on June 04, 2020 showed large right pleural effusion with compressive atelectasis in the right lower lobe mild right to left mass-effect on mediastinum. Numerous enhancing pleural-based nodules involving right pleura posteriorly along the right lower lobe and extending along the right hemidiaphragm. Enhancing pleural-based nodules throughout the right lung and extending along the anterior mediastinum suspicious for pleural-based metastatic disease. Left lung clear, no mediastinal or hilar lymphadenopathy. Mild diffuse fatty infiltration of liver. Status post right modified radical mastectomy with right axillary lymph node dissection done on 01/15/2019 showed infiltrating ductal carcinoma tumor size 2.5 x 1.5 cm, T2 and 0/3 lymph node positive for metastatic disease e.g. and 0, DCIS component comprises 15% of tumor volume. Stage IIa Infiltrating ductal carcinoma of right breast status post ultrasound-guided biopsy done on 12/20/2018, final pathology report showed infiltrating ductal carcinoma grade 3, Ki-67 40%, unfavorable, estrogen receptor less than 1%, negative progesterone receptor less than 1%, negative HER-2/angelia 1+, negative for HER-2/angelia overexpression by IHC and over amplification by FISH. BRCA1/2 testing done 02/07/2019 , came back negative Status post left prophylactic mastectomy done on 10/08/2019 Started on dose dense chemotherapy with Adriamycin Cytoxan every 2 weeks ???4 on 02/19/2019, will be followed by weekly Taxol ???12. She tolerated A/C well. She was transitioned to weekly paclitaxel. After 6 dose of weekly Taxol, she was changed to weekly Abraxane due to persistent hyperglycemia due to steroids. completed on 08/05/2019 Chronic hip pain due to chronic arthritis involving bilateral hip as per MRI scan of pelvis done on done on 08/16/2019 showed no evidence of metastatic disease.Chronic right shoulder pain due to rotator cuff, off and on for last 15 years Plan: Discussed with patient regarding her right pleural fluid cytology report from July 01, 2020 which shows rare tumor cell, immunohistochemistry stains confirmed metastatic carcinoma and stains were negative for estrogen receptor but positive for CK7, CK cocktail and CK Pradeep. At this point, will consider CT PET scan to assess the extent of the disease and to also to identify less invasive site to obtain sufficient specimen to confirm metastatic disease as well as the possible primary and to test for targetable tumor cell expression if expressed. Patient will return to clinic after her CT PET scan for further discussion Patient was advised in case there is a worsening of shortness of breath, she need to contact pulmonology for repeat thoracentesis. Signed By: Laurita Hernández M.D. <<Signature on File>>
== END 2020-07-14 08:14 | disposition home or self-care (01) ==
LOC: ONCMED 08:14
PROVIDERS: PCP Family Medicine; Visit Provider Internal Medicine Hematology & Oncology
DX: C50.411 Malignant neoplasm of upper-outer quadrant of right female breast (principal); Z17.1 Estrogen receptor negative status [ER-]; J91.0 Malignant pleural effusion; J98.11 Atelectasis; K76.0 Fatty (change of) liver, not elsewhere classified; R91.1 Solitary pulmonary nodule; R06.02 Shortness of breath
CPT/HCPCS: 88112; 88305; 99214

== ENCOUNTER 2020-07-22 05:54 | Outpatient (CLI) | payer OTHER, SELFPAY ==
--- NOTE | 2020-07-23 14:32 | ONC FU_ITS ---
Dr. Hernández follow up note Patient: Agatha Hoffman Unit #: [id number]: 1965 Dicatated By: Laurita Hernández M.D.Date of Visit:Jul 22, 2020 Onc Med Follow-up/Prog Note History of Present Illness: Ms. Hoffman is a 55-year-old female with long-standing history of right breast lump. She underwent right breast biopsy about 6 years ago, at that time she was told it was a benign. Recently she noticed pain and discomfort in her right breast so underwent bilateral mammogram on 12/05/2018. It was BI-RADS Category 0, incomplete, due to dense breast, repeat ultrasound was recommended which was done on 12/06/2018 which showed BI-RADS Category 5, highly suggestive of malignancy in the 10 to 11:00 position in the right breast patient underwent ultrasound-guided biopsy of right breast on 12/20/2018 which showed triple negative infiltrating ductal carcinoma.BRCA1/2 came back negative Patient denied any nipple discharge patient denies any nipple retraction, but complaining of discomfort in her right breast, denies any right axillary fullness, denies any trauma to her breast. She also denied any bony pain. History of back pain due to back injury about 15 years ago and intolerance to NSAIDs because of persistent severe nausea vomiting. Ms Hoffman underwent right modified radical mastectomy with right axilla lymph node dissection On 01/15/2019. The final pathology report showed 2.5 x 1.5 cm infiltrating ductal carcinoma, 0 out of 3 lymph nodes showed metastatic disease. Echocardiogram done on 02/07/2019 showed a Ejection fraction 77.3% Ms Hoffman started on adjuvant chemotherapy with dose dense Adriamycin Cytoxan With Neulasta support (to prevent chemotherapy-induced neutropenia) on 02/19/2019. s/p 4 doses of Adriamycin Cytoxan. She was transitioned to weekly paclitaxel on 04/29/2019. She had issues with hyperglycemia due to steroids; so on 06/10/2019 paclitaxel was switched to Abraxane for the remaining 6 doses of her planned therapy and completed on 08/05/2019 On 05/31/2019 she developed painful, clear fluid filled blisters on her mid upper back area. She went to emergency room where she was given acyclovir for shingles- now resolved. On 06/16/2019 she was admitted to hospital with not feeling well, fever of with yellowish phlegm and was treated as inpatient with IV antibiotics and felt better. She had some residual neuropathy but states it is no worse than what it has been. worsening bilateral hip pain and lower back pain . She states is been there forever and is chronic. She is also having worsening knee pain but states that hips are worse. She is had no recent trauma or falls. She states the pain just seems to be more persistent and does not let up. She does try Tylenol and Aleve. She states she is taken hydrocodone in the past with good relief. At least allowed her to get her activities of daily living accomplished in a timely manner. For which she underwent MRI scan of the pelvis on 08/16/2019 which showed no evidence of metastatic disease, moderate degenerative arthritis both hips. No sacral fracture and no bony metastases. She is also having some vision changes and that she is having wavy vision which she states is happened in the past with an aura before she had a migraine headache.For which she underwent MRI scan of the head on 08/16/2019 which showed no evidence of metastatic disease. Echocardiogram done on 08/05/2019 showed ejection fraction 65% off and on right shoulder pain, for the last 15 years, now progressive, as per patient, in the past she was told pain is due to problem with her rotator cuff and now pain is becoming bothersome. Cannot take Motrin the cause of intolerance so trying Tylenol with some help.-For which she underwent MRI scan of the C-spine on October 06, 2019 which showed central disc osteophyte protrusion at C5-C6 also had MRI scan of right shoulder done on January 03, 2020 which showed moderate degenerative arthritis at the AC joint with a mild edema and mild downsloping of acromion with subacromial spurring. Chronic tenting of supraspinatus and tiny intrasubstance tear distally. Patient was given steroid injection in the right shoulder with that her pain improved significantly. Patient recently underwent prophylactic left mastectomy on 10/08/2019. progressive shortness of breath and right lower chest pain and cough, as per patient about 2 months ago, she fell in her porch and injured her left knee torn ACL and her leg was immobilized for 6 weeks and then to reevaluate for surgical options. Patient said on April 04, 2020 she started experience shortness of breath, no fever, no hemoptysis no hematemesis she thought it was due to allergies as she has many cats and went to see her PMD who gave her Claritin, without much help then he was switched to Zyrtec her shortness of breath continue worse eventually she had a chest x-ray done which showed right pleural effusion subsequently underwent CT scan of chest on June 04, 2020 which showed large right pleural effusion with compressive atelectasis in the right lower lobe mild right to left mass-effect on the mediastinum. Numerous enhancing pleural-based nodules involving the right pleura posteriorly along the right lower lobe and extending along the right hemidiaphragm. Enhancing pleural-based nodules throughout the right lung and extending along the anterior mediastinum suspicious for pleural-based metastatic disease. Left lung clear no mediastinal or hilar lymphadenopathy, mild diffuse fatty infiltration of the liver .Patient was referred to pulmonology for evaluation on June 05, 2020 patient underwent right thoracentesis and about 2 L of bloody fluid was removed and patient felt better immediately and fluid was sent for cytology which came back as negative for malignancy, Repeat right thoracentesis done on July 01, 2020 and the cytology came back rare tumor cell, metastatic carcinoma, chronic inflammation with reactive mesothelial cell and immunohistochemistry positive for CK7, CK cocktail, CK Pradeep,Christophe-EP4, and negative for GCDFP, estrogen receptor CT PET scan done on July 18, 2020 showed a right retropectoral node measuring 2.3 x 1.2 cm has SUV of 10.9. Within the right hemithorax there are multiple pleural-based nodules with FDG uptake consistent with recurrent malignancy, as well as previously described large effusion. Nodules are more prominent dependently, with index nodule at the anterior medial right middle lobe adherent to the mediastinum measuring 2.1 x 2.0 cm with SUV of 14.2 and other lesions have SUV up to 18.1. Activity in the subcentimeter celiac node and abdomen has SUV of 3.7 highly suspicious for malignancy Came for follow-up, complaining of off and on mild weakness in her right hand but no swelling no pain in the right arm. No headaches or blurred vision, no neck pain, no shoulder pain but does complain of right chest where chest tube was placed and. And also complaining of mild to moderate dyspnea on exertion. No hemoptysis or hematemesis, no jaundice, no new bony pains. Medications: Acetaminophen 1 Tablet (of 500 mg) Oral PRN, Albuterol Sulfate 1 - 2 Puff(s) (of 108 (90 base) mcg/act) Aerosol Powder, Breath Activated Inhalation q 4 hours PRN, Cetirizine HCl 1 Tablet (of 10 mg) Oral daily, Claritin 1 Tablet (of 10 mg) Oral daily, Cyclobenzaprine HCl 1 Tablet (of 10 mg) Oral t.i.d. PRN, LORazepam 0.5 - 1 Tablet (of 1 mg) Oral t.i.d. PRN, NexIUM 1 Capsule (of 20 mg) Capsule Delayed Release Oral daily, Prochlorperazine Maleate 1 Tablet Oral q 4 hours PRN, Promethazine-Codeine 5 mL (of 6.25-10 mg/5mL) Syrup Oral q 6 hours PRN, Zofran 1 Tablet (of 4 mg) Oral q 6 hours PRN Allergies: Ibuprofen and NSAIDs. Review of Systems: Review of Systems is not available for this patient. Vital Signs: Performed on Jul 22, 2020 16:45 Height - 69.00 in Weight - 233.6 lbs (LOW) BSA - 2.21 sq.m BMI - 34.50 (HIGH) Temperature - 98.2 F (LOW) Pulse - 95 /min Respiration - 18 /min BP - 145/89 mm(hg) (HIGH) O2 Sat - 97 % Performance Status: 1 - No physically strenuous activity, but ambulatory and able to carry out light or sedentary work (e.g. office work, light house work). (ECOG) Physical Examination: Respiratory - No breath sound in the right lung upper to mid zone and few basilar rales, left lung is clear, Cardiovascular - Regular rate and rhythm of heart , Gastrointestinal - Soft, bowel sounds present, Extremities - No visible edema or rash, no weakness in her hands. Lab/Imaging: Test performed on Jun 26, 2020 10:25 Sodium 139 mmol/L Potassium 4.2 mmol/L Chloride 100 mmol/L CO2 29 mmol/L Anion Gap 14.2 BUN 11 mg/dL Creatinine 0.5 mg/dL Cr Clearance (Est) 207.1000 mL/min eGFR 127.6 mL/min Glucose 100 mg/dL Osmolality - Calculated 287 mOsm/kg Calcium 9.7 mg/dL Protein, Total 7.5 g/dL Albumin 4.0 g/dL Globulin 3.5 g/dL Bilirubin, Total 0.2 mg/dL ALT (SGPT) 32 U/L AST (SGOT) 22 U/L Alkaline Phosphatase 100 IU/L WBC 8.0 10 3/uL RBC 4.88 10 6/uL HGB 12.8 g/dL HCT 42.6 % MCV 87.3 fL MCH 26.2 pg MCHC 30.0 g/dL RDW 13.9 % Platelet Count 411 10 3/cmm MPV 9.3 fL Neutrophils 5.74 10 3/uL Lymphocytes 1.3 10 3/uL Monocytes 0.5 10 3/uL Eosinophils 0.4 10 3/uL Basophils 0.1 10 3/uL Neutrophil % 72.0 % Lymphocyte % 16.0 % Monocyte % 6.3 % Eosinophil % 4.6 % Basophils % 0.6 % NRBC % 0 % CA 15-3 43.5 U/mL CA 19-9 15.05 U/mL Test performed on Mar 20, 2020 08:35 Manual Lymphocytes 23.4 % Manual Monocytes 5.2 % Manual Eosinophils 2.9 % Manual Basophils 0.5 % Impression: Recurrent right pleural effusion status post multiple thoracentesis finally thoracentesis done on July 01, 2020 showed immunohistochemical stain highlight rare tumor cells, metastatic carcinoma as immunohistochemistry stain positive for CK7, CK cocktail, CK Pradeep,Christophe-EP4, and negative for estrogen receptor,GCDFP CT scan of chest done on June 04, 2020 showed large right pleural effusion with compressive atelectasis in the right lower lobe mild right to left mass-effect on mediastinum. Numerous enhancing pleural-based nodules involving right pleura posteriorly along the right lower lobe and extending along the right hemidiaphragm. Enhancing pleural-based nodules throughout the right lung and extending along the anterior mediastinum suspicious for pleural-based metastatic disease. Left lung clear, no mediastinal or hilar lymphadenopathy. Mild diffuse fatty infiltration of liver. Status post right modified radical mastectomy with right axillary lymph node dissection done on 01/15/2019 showed infiltrating ductal carcinoma tumor size 2.5 x 1.5 cm, T2 and 0/3 lymph node positive for metastatic disease e.g. and 0, DCIS component comprises 15% of tumor volume. Stage IIa Infiltrating ductal carcinoma of right breast status post ultrasound-guided biopsy done on 12/20/2018, final pathology report showed infiltrating ductal carcinoma grade 3, Ki-67 40%, unfavorable, estrogen receptor less than 1%, negative progesterone receptor less than 1%, negative HER-2/angelia 1+, negative for HER-2/angelia overexpression by IHC and over amplification by FISH. BRCA1/2 testing done 02/07/2019 , came back negative Status post left prophylactic mastectomy done on 10/08/2019 Started on dose dense chemotherapy with Adriamycin Cytoxan every 2 weeks ???4 on 02/19/2019, will be followed by weekly Taxol ???12. She tolerated A/C well. She was transitioned to weekly paclitaxel. After 6 dose of weekly Taxol, she was changed to weekly Abraxane due to persistent hyperglycemia due to steroids. completed on 08/05/2019 Chronic hip pain due to chronic arthritis involving bilateral hip as per MRI scan of pelvis done on done on 08/16/2019 showed no evidence of metastatic disease.Chronic right shoulder pain due to rotator cuff, off and on for last 15 years Plan: Discussed with patient regarding her labs white blood count 8.1 hemoglobin 12.5 hematocrit 42.1 platelets 373,000 CMP is pending and CT PET scan findings which showed FDG positive right retropectoral axillary lymph node, and small FDG positive celiac lymph node and extensive right pleural malignant implants with large right pleural effusion and right lower lobe atelectasis Clinically, patient is in mild to moderate distress due to recurrent large pleural effusion and now with off and on weakness in her right hand,, her CT PET scan findings were discussed with patient which showed disease mainly involving right pleural cavity and 1 lymph node in the right retropectoral area and subcentimeter lymph node in the celiac node reactive versus malignant, her CT PET scan findings confirmed very unusual presentation for recurrent of breast cancer, case was discussed with pathologist, he suggested getting pleural nodule biopsy to confirm the diagnosis or for further studies including next generation sequencing or cancer type ID if needed. Discussed with patient but patient wants to go to [place] for evaluation and to explore clinical trials available., Will refer her to breast cancer clinic at [place] for evaluation and if needed further diagnostic work-up As far as right hand weakness, etiology unclear, will get MRI scan of the brain to rule out brain mets. Patient return to clinic after MRI scan of the brain for evaluation Signed By: Luarita Hernández M.D. <<Signature on File>>
== END 2020-07-22 05:55 | disposition home or self-care (01) ==
PROVIDERS: PCP Family Medicine; Visit Provider Internal Medicine Hematology & Oncology
DX: C50.411 Malignant neoplasm of upper-outer quadrant of right female breast (principal); Z17.1 Estrogen receptor negative status [ER-]; J91.0 Malignant pleural effusion; R53.1 Weakness; Z90.12 Acquired absence of left breast and nipple; Z79.899 Other long term (current) drug therapy; Z92.21 Personal history of antineoplastic chemotherapy
CPT/HCPCS: 99214

== ENCOUNTER 2020-07-27 10:41 | Outpatient (CLI) | payer OTHER, SELFPAY ==
--- NOTE | 2020-07-27 14:04 | MR_ITS ---
WS: [id number] MRI HEAD WITH CONTRAST TECHNIQUE: Sagittal T1, T2 axial, T2 axial FLAIR, axial susceptibility weighted imaging, axial diffus ion weighted images, and coronal T2 images were obtained. Pre and post-T1 axial and post T1 coronal i mages. ADC and FSPGR images. CLINICAL INFORMATION: RIGHT HAND/ARM WEAKNESS COMPARISON: MRI 12/2018 FINDINGS: Large heterogeneously enhancing complex cystic and solid lesion involving the left parietal lobe with surrounding edema. Small amount of associated hemosiderin. Heterogeneously enhancing lesion measure s approximately 5.1 x 3.8 x 5.4 cm AP by transverse by craniocaudal. Moderate surrounding edema. Mass effect with partial effacement of the posterior horn left lateral ventricle. Left to right midline s hift measuring 6 mm. No hydrocephalus. No other visualized enhancing lesions. No other abnormal foci of enhancement. Findings are new since the MRI from 2018. Normal posterior fossa. Normal vascular flow voids at the skull base. No extra-axial fluid collection s. Mild mucosal thickening in the ethmoid air cells. No restricted diffusion to suggest acute ischemi a. Normal optic chiasm and pituitary infundibulum. Temporal lobes and hippocampal formations are norm al. MR/MR head wo/w con [id number] IMPRESSION: 1. Large complex cystic and solid appearing lesion with associated heterogeneo usly enhancing nodularity in the left parietal lobe measuring 5.1 x 3.8 x 5.4 C M. Given clinical history, findings most likely due to metastatic disease. Prim hong astrocytoma not entirely excluded. 2. Moderate surrounding edema. Left to right midline shift measuring 6 mm. 3. Partial effacement of the posterior horn left lateral ventricle. No hydroce phalus. 4. Small amount of hemosiderin involving the dorsal margin of the mass. 5. No other suspicious intracranial findings or enhancing lesions. Notified Dr. Hernández's nurse at 07/27/2020 2:33 PM.
== END 2020-07-27 10:42 | disposition home or self-care (01) ==
LOC: RADWPI 10:45
PROVIDERS: PCP Family Medicine; Visit Provider Internal Medicine Hematology & Oncology
DX: R53.1 Weakness (principal); R60.0 Localized edema; G93.9 Disorder of brain, unspecified
CPT/HCPCS: 70553; A9579

== ENCOUNTER 2020-08-18 10:15 | Outpatient (RCR) | payer OTHER, SELFPAY | END 2020-09-03 23:59 | disposition home or self-care (01) | LOC: SPT 10:15 | PROVIDERS: PCP Family Medicine; Visit Provider Physical Therapist | DX: C79.31 Secondary malignant neoplasm of brain (principal) | CPT/HCPCS: 97161 ==

== ENCOUNTER → 2020-08-19 10:09 | Outpatient (BNVA) | payer OTHER, SELFPAY | PROVIDERS: PCP Family Medicine; Visit Provider Specialist | DX: M25.569 Pain in unspecified knee (principal) | CPT/HCPCS: 73560; 73565 ==

== ENCOUNTER 2020-09-24 09:56 | Outpatient (CLI) | payer OTHER, SELFPAY ==
[2020-09-24 10:44] LABS: Basophils # 0.1 10^3/uL (0.0-0.1); Basophils % 0.6 %; Eosinophils # 0.4 10^3/uL (0.0-0.8); Eosinophils % 4.6 %; Hematocrit 38.7 % (37.0-47.0); Hemoglobin 11.5 g/dL (11.5-15.3); Lymphocytes # 1.2 10^3/uL (0.8-4.8); Lymphocytes % 13.1 %; Mean Corpuscular HGB Conc 29.7 g/dL (30.0-36.0); Mean Corpuscular Hemoglobin 24.9 pg (28.0-34.0); Mean Corpuscular Volume 83.8 fL (81-99); Monocytes # 0.6 10^3/uL (0.2-0.9); Neutrophils # 7.11 10^3/uL (1.8-7.7); Neutrophils % 75.3 %; Nucleated Red Blood Cells % 0 %; Platelet Count 444 10^3/cmm (130-400); Red Blood Count 4.62 10^6/uL (4.1-5.3); Red Cell Distribution Width 15.1 % (12.1-15.1); White Blood Count 9.5 10^3/uL (4.0-10.0)
[2020-09-24 11:04] LABS: Alanine Aminotransferase 17 U/L (0-33); Alkaline Phosphatase 120 IU/L (35-105); Anion Gap 14.3 (5-19); Aspartate Amino Transferase 12 U/L (0-32); Blood Urea Nitrogen 11 mg/dL (6-20); Calcium 9.8 mg/dL (8.5-10.5); Carbon Dioxide 28 mmol/L (22-29); Chloride 96 mmol/L (98-107); Globulin 3.9 g/dL (1.3-4.6); Glomerular Filtration Rate 127.6 mL/min (90-130); Glucose 120 mg/dL (65-115); Osmolality Calculated 279 mOsm/kg (285-295); Potassium 4.3 mmol/L (3.5-5.1); Sodium 134 mmol/L (136-145); Total Bilirubin 0.2 mg/dL (0.15-1.2); Total Protein 7.9 g/dL (6.6-8.7)
== END 2020-09-24 09:57 | disposition home or self-care (01) ==
LOC: ONCMED 10:08 → LAB 10:13
PROVIDERS: PCP Family Medicine; Visit Provider Internal Medicine Hematology & Oncology
DX: C50.411 Malignant neoplasm of upper-outer quadrant of right female breast (principal); Z17.1 Estrogen receptor negative status [ER-]
CPT/HCPCS: 80053; 85025

== ENCOUNTER 2020-09-25 06:05 | Outpatient (CLI) | payer OTHER, SELFPAY | END 2020-09-25 06:06 | disposition home or self-care (01) | LOC: ONCMED 06:08 | PROVIDERS: PCP Family Medicine; Visit Provider Internal Medicine Hematology & Oncology | DX: C50.411 Malignant neoplasm of upper-outer quadrant of right female breast (principal); C79.31 Secondary malignant neoplasm of brain; C78.2 Secondary malignant neoplasm of pleura; R07.89 Other chest pain; K30 Functional dyspepsia; K44.9 Diaphragmatic hernia without obstruction or gangrene; M25.511 Pain in right shoulder; M16.0 Bilateral primary osteoarthritis of hip; K76.0 Fatty (change of) liver, not elsewhere classified; Z17.1 Estrogen receptor negative status [ER-]; Z90.13 Acquired absence of bilateral breasts and nipples; Z79.891 Long term (current) use of opiate analgesic | CPT/HCPCS: 99215 ==

== ENCOUNTER → 2020-10-07 12:26 | Outpatient (BNVA) | payer OTHER, SELFPAY | PROVIDERS: PCP Family Medicine; Visit Provider Internal Medicine Critical Care Medicine | DX: J90 Pleural effusion, not elsewhere classified (principal); C50.919 Malignant neoplasm of unspecified site of unspecified female breast; C79.31 Secondary malignant neoplasm of brain | CPT/HCPCS: 87635 ==

== ENCOUNTER 2020-10-13 07:01 | Day surgery (SDC) | payer OTHER, SELFPAY ==
[2020-10-12 14:27] VITALS: BMI 34.0
--- NOTE | 2020-10-13 | SCC_ITS ---
Procedure Done: Placement of left internal jugular vein PowerPort under ultrasound and fluoroscopic guidance that was done by me through the whole entire procedure 8.7 seconds of fluoroscopic guidance, for a cumulative dose of 1.86 mGy, was provided to Dr. Shabazz by the radiology department. C-arm images of the chest were saved for the patient's permanent record. ANDREID
--- NOTE | 2020-10-13 07:09 | SC_ITS ---
WS: [id number] INTRAOPERATIVE TECHNIQUE: 1 Spot fluoroscopic images for intraoperative purposes. FLUOROSCOPY TIME: 8.7 seconds CLINICAL INFORMATION: Powerport Placement COMPARISON: None. FINDINGS: Left Port-A-Cath with tip in the mid brachiocephalic vein. No pneumothorax. SC/C-arm FL for CVA [id number] IMPRESSION: Images obtained for intraoperative purposes.
[2020-10-13 07:14] VITALS: BP 146/89; PULSE 119; RESP 20; TEMP 36.6; O2SAT 100
[2020-10-13] MEDS: scopolamine 1.5 Patch 1 PATCH TRANSDERMA (07:41)
[2020-10-13] MEDS: sodium chloride 0.9% 1,000 ML 30 ML IV (07:41)
--- NOTE | 2020-10-13 07:56 | ANES.PREANE2 ---
Pre-Anesthetic Assessment Pre-Anesthetic Assessment: Height/Weight: Height 1.75 m Weight 104.326 kg Temp Pulse Resp BP Pulse Ox 97.8 F 119 H 20 H 146/89 100 10/13/20 07:14 10/13/20 07:14 10/13/20 07:14 10/13/20 07:14 10/13/20 07:14 Preop Diagnosis: Breast cancer with metastases Proposed Procedure: Operation Date: 10/13/20 08:50 Proposed Procedures p Portacath Placement 26881 C50.909 C79.31(Not Applicable) - Dl Shabazz MD Was Beta Wilbur taken within 24 hours: N/A Last intake: Intake Last Liquid Date 10/12/20 Last Liquid Time 23:00 Last Solid Date 10/12/20 Last Solid Time 23:00 Social: Social History: Tobacco and No alcohol Exam: Pre-Anes Outpt Exam: alert, oriented x 3 and regular rate & rhythm Airway: Submandibular: WNL Cervical ROM: WNL MP: 2 Dentition: Full Pulmonary: Pulmonary: COPD Comments: Lung CA (met breast) GI: GI: GERD Musc/skel: Comments: Chronic pain from lung nodules, chronic opioid Anesthetic Plan: ASA status: 3 Anesthesia: MAC Other: PONV Risk of > 500 ml blood loss (7ml/kg in children): No Meds/Allergies Current Medications: Current Medications Generic Name Dose Route Start Last Admin Trade Name Freq PRN Reason Stop Dose Admin Sodium Chloride 1,000 mls @ 30 ml s/hr 10/13/20 07:15 10/13/20 07:41 Sodium Chloride 0.9% IV 10/14/20 07:14 30 mls/hr .Q24H ELPIDIO Administration PFSH Anesthesia PFSH: Medical History Arthritis Hiatal hernia History of breast cancer Migraine Postmenopausal Rotator cuff syndrome Surgical History History of delivery History of left total mastectomy History of right total mastectomy Family History Family/Other Cancer breast Denies family history of Anesthesia complication Bleeding disorder Social History Smoking and tobacco status: never smoked Second hand smoke exposure: No Alcohol intake: never Adopted: No Caregiver/support person: No Lives independently: Yes Household members: family Housing: House Marital status: Single Highest education level completed: High School Graduate service: Yes Current occupational status: retired Current occupational exposures/hazards: No Pets and animals: No History of recent travel: No Sexually active: No Current gender identity: Female Isamar/Adventist: Episcopalian Special isamar needs: No Agree to transfusion: No Financial difficulty paying for basics: Decline to Answer Female Reproductive History: Date of last menstrual period: 06/04/17 Data Anesthesia Cardiac Studies: No Data to Display
--- NOTE | 2020-10-13 07:58 | W.PM.OPSFHP ---
Same Day Surgery H&P Indication for Procedure/HPI DATE OF PROCEDURE: October 13, 2020 CHIEF COMPLAINT/INDICATIONFOR SURGICAL PROCEDURE: Breast cancer with metastases PREOP DIAGNOSIS: Breast cancer with metastases PLANNED PROCEDRUE: Operation Date: 10/13/20 08:50 Proposed Procedures p Portacath Placement 82519 C50.909 C79.31(Not Applicable) - Dl Shabazz MD This is a pleasant 55 years old female patient well-known to me from previous clinical encounters where she did undergo right total mastectomy with sentinel node biopsy of the right axilla for invasive breast cancer and she undergone prophylactic left total mastectomy by me at a later date. Unfortunately patient developed metastatic disease and she is requiring another port placement for chemotherapy. ROS All systems have been reviewed negative except as per the above or per problem list Medications/Allergies* Home Medications Medication Instructions Recorded Confirmed Type lansoprazole 15 mg capsule,delayed 15 mg PO BID 10/05/20 10/13/20 History release morphine 10 mg capsule,extended 30 mg PO BID 10/05/20 10/13/20 History release pellets hydrocodone-acetaminophen 1 tab PO Q4H PRN 10/12/20 10/13/20 History Allergies/Adverse Reactions Allergy/AdvReac Type Severity Reaction Status Date / Time adhesive tape Allergy Severe ALGY-Rash Verified 10/13/20 07:12 NSAIDS (Non-Steroidal AdvReac Severe ADR-Vomitin Verified 10/13/20 07:12 Anti-Inflamma g Current Medications: Generic Name Dose Route Start Last Admin Trade Name Freq PRN Reason Stop Dose Admin Sodium Chloride 1,000 mls @ 30 mls/hr 10/13/20 07:15 10/13/20 07:41 Sodium Chloride 0.9% IV 10/14/20 07:14 30 mls/hr .Q24H ELPIDIO Administration Pertinent History/Comorbid Conditions* Medical History (Updated 10/05/20 @ 10:37 by Dl Shabazz MD) Arthritis Hiatal hernia History of breast cancer Migraine Postmenopausal Rotator cuff syndrome Surgical History (Updated 10/18/19 @ 15:40 by Dl Shabazz MD) History of delivery History of left total mastectomy History of right total mastectomy Family History (Updated 09/30/19 @ 08:39 by Sarahy Torres RN) Cancer Family/Other breast Denies family history of Anesthesia complication Bleeding disorder Social History Smoking and tobacco status: never smoked Second hand smoke exposure: No Alcohol intake: never Adopted: No Caregiver/support person: No Lives independently: Yes Household members: family Housing: House Marital status: Single Highest education level completed: High School Graduate service: Yes Current occupational status: retired Current occupational exposures/hazards: No Pets and animals: No History of recent travel: No Sexually active: No Current gender identity: Female Isamar/Buddhist: Pentecostal Special isamar needs: No Agree to transfusion: No Financial difficulty paying for basics: Decline to Answer Pertinent Exam Findings alert, oriented x 3, clear to auscultation bilaterally (Fair air entry bilateral), regular rate & rhythm and procedure specific exam findings (Abdominal examination nontender nondistended soft) Recommendations Surgery/Procedure today (PowerPort placement) Other Plans: Plan of care; After thorough history physical examination and reviewing the chart and reviweing the images iwth my personal intrepretation.I counseled the patient for Port-A-Cath placement, indications, risks including pneumothorax that may require Chest tube(s) placement and potential injury of major vascular structures that may require Thoractomy, benefits,indications and alternatives were all discussed with the patient, patient understands and is interested to proceed. Rationale was carefully and clearly discussed with the patient.Appropriate informed consent have been reviewed and signed. Coding Level of Care Code Acute Patient Financial Rep for Román Mathew
[2020-10-13] MEDS: lidocaine 2% INJ 20 mL (09:03)
[2020-10-13] MEDS: heparin, porcine 1,000 unit/mL INJ 10 mL 10000 UNIT (09:04)
--- NOTE | 2020-10-13 09:26 | PM.OP ---
Operative Report Date of procedure: October 13, 2020 Pre-op Diagnosis: Breast cancer with metastases Post-op diagnosis: same Procedure Done: Placement of left internal jugular vein PowerPort under ultrasound and fluoroscopic guidance that was done by me through the whole entire procedure Implants: Left internal jugular vein PowerPort Surgeon: Dl Shabazz Cracking Still Operator: cartography/mapping technician [place] Circulating nurse Madelin Anesthesia: MAC (Gabbi Dumas) Estimated blood loss (mL): 10 Complications: No immediate complications Condition: stable Disposition: same day Brief History: History of breast cancer with metastatic disease Full H&P per chart Procedure: Patient was identified in the holding area and taken to the operative room and placed in supine position IV propofol was given by the anesthesia provider ,both arms were tucked,Time-out was done verifying the patient's name/date of /planned procedure and destination after the procedure, all were in agreement. SCDs confirmed to be functioning, preoperative antibiotics administered per protocol, and beta alireza protocol was confirmed, appropriate positioning of the patient was done by me. Medications were reviewed to assess for anticoagulant usage. Risks and benefits and prevention of central line associated blood stream infection (CLABSI) were discussed with the patient/CPOA, and a consent was obtained. Monitors were in place and monitored throughout the procedure. All necessary supplies were available prior to start. Hand hygiene was completed prior to starting. Maximum barrier technique was utilized including a sterile gown, sterile gloves with a hat and mask. Site was was prepped with [chlorhexidine] and a full body drape was placed. 5 mL of 2% lidocaine was injected into the skin with a 25 gauge needle. Prep& drape was done under the usual sterile technique, lidocaine 2% was injected at the site of the stick, started by the left subclavian vein, was not able to retrieve venous blood, after multiple attempts I decided to switch to the left internal jugular vein The left internal Juglar vein stick that retrieved venous blood was obtained from the first stick under ultrasound guidance and there was no evidence of intraluminal thrombosis, interpretation was done by me through the whole entire procedure, a guidewire was then threaded and under the guidance of fluoroscopy position was confirmed to be in the IVC and my interpretation, there was no PVC changes, at that point the guidewire was secured to the drapes with a hemostat and the needle was taken out. Attention was then deviated towards creation of a pocket for the port were lidocaine 2% was injected using an 15 blade knife skin incision was created at the left upper Chest ,dissection using the Bovie to create a pocket for the Port-A-Cath to be accommodated, hemostasis was secured, after the port being appropriately flushed it was inserted into the pocket and a tunneler was used to accommodate the catheter of the port cath to be delivered through the incision first created at the site of the stick at the left side of the neck, , and then I was able to retrieve the catheter At that point under fluoroscopy an estimated length was measured for the catheter and was cut at the designed level, followed by that a dilator with the sheath introduced onto the guidewire the dilator and the wire were retrieved and the catheter of the port was introduced via the sheath where it was peeled off and the catheter maintained to be in the brachiocephalic vein that was confirmed with fluoroscopy as I did discuss the images with Dr. Bangura radiologist and mentioned that the tip of the catheter is in a satisfactory position, otherwise fluoroscopy interpretation was done by me throughout the entire procedure. Multiple flushes of the port was done by diluted heparin and I was able to retrieve without difficulty venous blood as well as appropriate flushing was achieved. The port was kept in its pocket,3-0 Vicryl deep subdermal interrupted sutures, skin was then closed by 4-0 Monocryl as subcuticular closure. The stick site was closed by 4-0 Monocryl and surgical glue was used followed by dressing. Patient tolerated the procedure well was taken to the recovery area Count was correct at the end of the procedure I was present for the whole entire procedure Post procedure chest x-ray was appropriate and no evidence of pneumothorax
--- NOTE | 2020-10-13 09:28 | XRR_ITS ---
PROCEDURE INFORMATION: Exam: XR Chest, 1 View Exam date and time: 10/13/2020 9:29 AM Age: 55 years old Clinical indication: Device placement; Other: Ij powerport placement; Additional info: Status post left ij powerport placement TECHNIQUE: Imaging protocol: XR of the chest Views: 1 view. COMPARISON: CR XR chest 1V portable [id number] 06/05/2020 2:45 PM FINDINGS: Tubes, catheters and devices: A left internal jugular power port catheter is present with its tip projecting on the left innominate vein. Lungs: There is a loculated right pleural effusion which has decreased since previous study. There is left basilar atelectasis but this has also improved since previous examination. Pleural spaces: There is no pneumothorax. Heart/Mediastinum: The cardiac silhouette is enlarged. Bones/joints: Unremarkable. XR/XR chest 1V portable [id number] IMPRESSION: 1. The tip of the power port catheter projects on the left innominate vein. 2. The loculated right pleural effusion and right basilar atelectasis have improved. 3. Stable cardiomegaly.
[2020-10-13 09:42] VITALS: BP 146/89; PULSE 119; RESP 18; TEMP 36.6; O2SAT 100
[2020-10-13 10:19] VITALS: BP 136/98; PULSE 108; RESP 18; TEMP 36.3; O2SAT 97
--- NOTE | 2020-10-13 16:10 | ANE.PACU2 ---
Inpatient post-anesthesia follow up: Airway intact: Yes Vital signs: Temperature 97.3 F Pulse Rate 108 Respiratory Rate 18 Blood Pressure 136/98 Pulse Oximetry 97 Oxygen Delivery Me thod Room Air Oxygen Flow Rate Fraction of Inspir ed Oxygen Hydration adequate: Yes Nausea and vomiting: No Pain level: 1 Mental status: Baseline
== END 2020-10-13 10:40 | disposition home or self-care (01) ==
PROVIDERS: PCP Family Medicine; Visit Provider Surgery
PROC: (CPT 36561; principal; 2020-10-13 08:40)
DX: C50.919 Malignant neoplasm of unspecified site of unspecified female breast (principal); C79.31 Secondary malignant neoplasm of brain; J44.9 Chronic obstructive pulmonary disease, unspecified; M19.90 Unspecified osteoarthritis, unspecified site
CPT/HCPCS: 36561; 12345; 71045; 77001; C1788; J0690; J1644; J2704; J3010; J3490; J7030

== ENCOUNTER 2020-10-26 10:10 | Outpatient (CLI) | payer OTHER, SELFPAY ==
[2020-10-26] MEDS: alteplase 1 mg/mL SDV 2 mL 2 MG IV (10:45)
[2020-10-26 11:28] LABS: Basophils % 0.5 %; Eosinophils # 0.2 10^3/uL (0.0-0.8); Eosinophils % 2.7 %; Hematocrit 35.2 % (37.0-47.0); Hemoglobin 10.1 g/dL (11.5-15.3); Lymphocytes # 1.1 10^3/uL (0.8-4.8); Lymphocytes % 12.9 %; Mean Corpuscular HGB Conc 28.7 g/dL (30.0-36.0); Mean Corpuscular Hemoglobin 23.4 pg (28.0-34.0); Mean Corpuscular Volume 81.7 fL (81-99); Mean Platelet Volume 9.1 fL (7.4-10.4); Monocytes # 0.7 10^3/uL (0.2-0.9); Monocytes % 7.9 %; Neutrophils # 6.33 10^3/uL (1.8-7.7); Neutrophils % 75.6 %; Nucleated Red Blood Cells % 0 %; Platelet Count 371 10^3/cmm (130-400); Red Blood Count 4.31 10^6/uL (4.1-5.3); Red Cell Distribution Width 14.4 % (12.1-15.1); White Blood Count 8.4 10^3/uL (4.0-10.0)
[2020-10-26 11:58] LABS: Alanine Aminotransferase 19 U/L (0-33); Albumin Level 3.7 g/dL (3.5-5.2); Alkaline Phosphatase 117 IU/L (35-105); Anion Gap 13.3 (5-19); Aspartate Amino Transferase 13 U/L (0-32); Blood Urea Nitrogen 13 mg/dL (6-20); Calcium 9.5 mg/dL (8.5-10.5); Carbon Dioxide 29 mmol/L (22-29); Chloride 98 mmol/L (98-107); Globulin 3.9 g/dL (1.3-4.6); Glomerular Filtration Rate 127.6 mL/min (90-130); Glucose 96 mg/dL (65-115); Osmolality Calculated 282 mOsm/kg (285-295); Potassium 4.3 mmol/L (3.5-5.1); Sodium 136 mmol/L (136-145); Thyroid Stimulating Hormone 3.44 uIU/mL (0.27-4.20); Total Bilirubin 0.2 mg/dL (0.15-1.2); Total Protein 7.6 g/dL (6.6-8.7)
[2020-10-26] MEDS: palonosetron 0.25 mg/5 mL SDV IV (12:29)
[2020-10-26] MEDS: sodium chloride 0.9% 250 ML 75 ML IV (12:29)
== END 2020-10-26 10:11 | disposition home or self-care (01) ==
PROVIDERS: PCP Family Medicine; Visit Provider Internal Medicine Hematology & Oncology
DX: Z51.12 Encounter for antineoplastic immunotherapy (principal); Z51.11 Encounter for antineoplastic chemotherapy; C50.411 Malignant neoplasm of upper-outer quadrant of right female breast; Z17.1 Estrogen receptor negative status [ER-]; C79.31 Secondary malignant neoplasm of brain; Z79.899 Other long term (current) drug therapy
CPT/HCPCS: 36593; 80053; 84443; 85025; 96367; 96375; 96413; 96417; J1100; J2469; J2997; J7040; J7050; J9045; J9201; J9271

== ENCOUNTER 2020-11-02 05:40 | Outpatient (CLI) | payer OTHER, SELFPAY ==
[2020-11-02] MEDS: alteplase 1 mg/mL SDV 2 mL 2 MG IV (10:30)
[2020-11-02 10:56] LABS: Basophils % 0.8 %; Eosinophils # 0.1 10^3/uL (0.0-0.8); Eosinophils % 1.6 %; Hemoglobin 9.9 g/dL (11.5-15.3); Lymphocytes # 0.7 10^3/uL (0.8-4.8); Lymphocytes % 19.6 %; Mean Corpuscular Hemoglobin 24.3 pg (28.0-34.0); Mean Corpuscular Volume 80.9 fL (81-99); Monocytes # 0.3 10^3/uL (0.2-0.9); Monocytes % 8.2 %; Neutrophils # 2.61 10^3/uL (1.8-7.7); Neutrophils % 69.3 %; Nucleated Red Blood Cells % 0 %; Platelet Count 180 10^3/cmm (130-400); Red Blood Count 4.08 10^6/uL (4.1-5.3); Red Cell Distribution Width 14.2 % (12.1-15.1); White Blood Count 3.8 10^3/uL (4.0-10.0)
[2020-11-02 11:37] LABS: Alanine Aminotransferase 52 U/L (0-33); Albumin Level 3.7 g/dL (3.5-5.2); Alkaline Phosphatase 108 IU/L (35-105); Aspartate Amino Transferase 28 U/L (0-32); Blood Urea Nitrogen 10 mg/dL (6-20); Calcium 9.4 mg/dL (8.5-10.5); Carbon Dioxide 31 mmol/L (22-29); Chloride 98 mmol/L (98-107); Globulin 3.7 g/dL (1.3-4.6); Glomerular Filtration Rate 127.6 mL/min (90-130); Glucose 100 mg/dL (65-115); Osmolality Calculated 283 mOsm/kg (285-295); Sodium 137 mmol/L (136-145); Total Bilirubin 0.2 mg/dL (0.15-1.2); Total Protein 7.4 g/dL (6.6-8.7)
[2020-11-02] MEDS: sodium chloride 0.9% 250 ML 75 ML IV (13:04)
[2020-11-02] MEDS: palonosetron 0.25 mg/5 mL SDV IV (13:04)
--- NOTE | 2020-11-08 17:33 | ONC FU_ITS ---
[facility] Patient Note Patient: Agatha Hoffman Unit #: [id number]: 1965 Dictated By: Mary LamaDate of Visit: Nov 02, 2020 Onc MED Follow-Up/Prog Note Chief Complaint: Right breast cancer History of Present Illness: Ms. Hoffman is a 55-year-old female with long-standing history of right breast lump. She underwent right breast biopsy about 6 years ago, at that time she was told it was a benign. Recently she noticed pain and discomfort in her right breast so underwent bilateral mammogram on 12/05/2018. 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 BRCA 1/2 came back negative Patient denied any nipple discharge patient denies any nipple retraction, but complaining of discomfort in her right breast, denies any right axillary fullness, denies any trauma to her breast. She also denied any bony pain. History of back pain due to back injury about 15 years ago and intolerance to NSAIDs because of persistent severe nausea vomiting. Ms Hoffman underwent right modified radical mastectomy with right axilla lymph node dissection On 01/15/2019. The final pathology report showed 2.5 x 1.5 cm infiltrating ductal carcinoma, 0 out of 3 lymph nodes showed metastatic disease. Echocardiogram done on 02/07/2019 showed a Ejection fraction 77.3% Ms Hoffman started on adjuvant chemotherapy with dose dense Adriamycin Cytoxan With Neulasta support (to prevent chemotherapy-induced neutropenia) on 02/19/2019. s/p 4 doses of Adriamycin Cytoxan. She was transitioned to weekly paclitaxel on 04/29/2019. She had issues with hyperglycemia due to steroids; so on 06/10/2019 paclitaxel was switched to Abraxane for the remaining 6 doses of her planned therapy and completed on 08/05/2019 On 05/31/2019 she developed painful, clear fluid filled blisters on her mid upper back area. She went to emergency room where she was given acyclovir for shingles- now resolved. On 06/16/2019 she was admitted to hospital with not feeling well, fever of with yellowish phlegm and was treated as inpatient with IV antibiotics and felt better. She had some residual neuropathy but states it is no worse than what it has been. worsening bilateral hip pain and lower back pain . She states is been there forever and is chronic. She is also having worsening knee pain but states that hips are worse. She is had no recent trauma or falls. She states the pain just seems to be more persistent and does not let up. She does try Tylenol and Aleve. She states she is taken hydrocodone in the past with good relief. At least allowed her to get her activities of daily living accomplished in a timely manner. For which she underwent MRI scan of the pelvis on 08/16/2019 which showed no evidence of metastatic disease, moderate degenerative arthritis both hips. No sacral fracture and no bony metastases. She is also having some vision changes and that she is having wavy vision which she states is happened in the past with an aura before she had a migraine headache.For which she underwent MRI scan of the head on 08/16/2019 which showed no evidence of metastatic disease. Echocardiogram done on 08/05/2019 showed ejection fraction 65% off and on right shoulder pain, for the last 15 years, now progressive, as per patient, in the past she was told pain is due to problem with her rotator cuff and now pain is becoming bothersome. Cannot take Motrin the cause of intolerance so trying Tylenol with some help.-For which she underwent MRI scan of the C-spine on October 06, 2019 which showed central disc osteophyte protrusion at C5-C6 also had MRI scan of right shoulder done on January 03, 2020 which showed moderate degenerative arthritis at the AC joint with a mild edema and mild downsloping of acromion with subacromial spurring. Chronic tenting of supraspinatus and tiny intrasubstance tear distally. Patient was given steroid injection in the right shoulder with that her pain improved significantly. Patient recently underwent prophylactic left mastectomy on 10/08/2019. progressive shortness of breath and right lower chest pain and cough, as per patient about 2 months ago, she fell in her porch and injured her left knee torn ACL and her leg was immobilized for 6 weeks and then to reevaluate for surgical options. Patient said on April 04, 2020 she started experience shortness of breath, no fever, no hemoptysis no hematemesis she thought it was due to allergies as she has many cats and went to see her PMD who gave her Claritin, without much help then he was switched to Zyrtec her shortness of breath continue worse eventually she had a chest x-ray done which showed right pleural effusion subsequently underwent CT scan of chest on June 04, 2020 which showed large right pleural effusion with compressive atelectasis in the right lower lobe mild right to left mass-effect on the mediastinum. Numerous enhancing pleural-based nodules involving the right pleura posteriorly along the right lower lobe and extending along the right hemidiaphragm. Enhancing pleural-based nodules throughout the right lung and extending along the anterior mediastinum suspicious for pleural-based metastatic disease. Left lung clear no mediastinal or hilar lymphadenopathy, mild diffuse fatty infiltration of the liver .Patient was referred to pulmonology for evaluation on June 05, 2020 patient underwent right thoracentesis and about 2 L of bloody fluid was removed and patient felt better immediately and fluid was sent for cytology which came back as negative for malignancy, Repeat right thoracentesis done on July 01, 2020 and the cytology came back rare tumor cell, metastatic carcinoma, chronic inflammation with reactive mesothelial cell and immunohistochemistry positive for CK7, CK cocktail, CK Pradeep,Christophe-EP4, and negative for GCDFP, estrogen receptor CT PET scan done on July 18, 2020 showed a right retropectoral node measuring 2.3 x 1.2 cm has SUV of 10.9. Within the right hemithorax there are multiple pleural-based nodules with FDG uptake consistent with recurrent malignancy, as well as previously described large effusion. Nodules are more prominent dependently, with index nodule at the anterior medial right middle lobe adherent to the mediastinum measuring 2.1 x 2.0 cm with SUV of 14.2 and other lesions have SUV up to 18.1. Activity in the subcentimeter celiac node and abdomen has SUV of 3.7 highly suspicious for malignancy Patient underwent MRI scan of brain on July 27, 2020 showed heterogeneously enhancing lesion measuring 5.1 x 3.8 x 5.4 cm with moderate surrounding edema with partial effacement of posterior horn of left lateral ventricle, left to right midline shift measuring 6 mm, underwent left parietal tumor resection on August 08, 2020 at [facility], final pathology report reported in medical record as metastatic high-grade metaplastic carcinoma (carcinosarcoma), consistent with breast primary immunohistochemistry positive for CK7, ALVIN 3, mammaglobin and vimentin. Negative for CK20, CDX, TTF-1, PAX 08, Ki-67 more than 50%, ER/RI positive HER-2/angelia 2+ by IHC, negative by DARREN Ms Hoffman was evaluated by Dr. Chavez, Medical oncologist at [facility] on August 24, 2020 and she was recommended carboplatin/gemcitabine/pembrolizumab and guardant 360 for somatic mutation was ordered in peripheral blood Ms Hoffman reports she was had been getting repeated right thoracentesis at [facility] and last time was mid September 2020. She states it was about 200 cc and she was told that it could be due to adhesions and pockets formation. Mrs. Hoffman underwent PET CT imaging on October 03, 2020. Comparison was made to 07/18/2020 imaging the right retropectoral node that previously measured 2.3 x 1.2 cm with an SUV of 10.9 was slightly progressed on the September 2020 study. It was measuring 2.8 x 1.5 cm with an SUV of 9.8. The index nodule at the anterior medial right middle lobe adherent to the mediastinum that previously measured 2.1 x 2.0 cm with an SUV of 14.2 measured 2.5 cm in diameter with an SUV of 9.1, indeterminate for progression or response. However there was a new central node measuring 1.7 x 1.9 cm with an SUV of 7.1. The right effusion had improved in volume and multiple other pleural implants are comparable to the previous study. Suspicious celiac upper abdominal node is stable with an SUV of 3.5. A new site of abnormal activity in the right aspect of the T12 vertebral body has an SUV of 9.9 consistent with new osseous metastatic disease. Mrs. Hoffman was offered further chemotherapy with carboplatin gemcitabine and pembrolizumab. She began her first cycle on October 26, 2020. She is here today for follow-up on day 8 of cycle 1. She reports overall she is doing good. She states she is feeling better in general. She does have some episodes of weakness but states in general it is better. She states she has been having some abdominal pain which is consistent with pain she was having in April at which time they were starting to work me up for gallbladder and then all these other problems started . She states the pain is in the right upper quadrant. She does notice it worse after she eats but is intermittently there throughout the day as well. She has had some uncontrolled acid reflux but states she has a history of hiatal hernia as well. She denies any fever or chills. She denies any sore throat or difficulty swallowing. She denies any worsening of her existing neuropathy. She denies nausea or vomiting. She states her bowel and bladder are normal for her. Her activity is still marginal and she requires assistance with her cane/walking stick. Her ECOG is 2. Past Medical History: Anxiety Depression Past Surgical History: Breast biopsy - 3 right breat-benign, 1 left breast-malignant Lipoma removal right flank Portacatheter placement (dr. holm) Tubal ligation in 1991 Caesarean section in 1984 Allergies: Ibuprofen and NSAIDs. Medications: Acetaminophen 1 Tablet (of 500 mg) Oral PRN Acetaminophen-Codeine #3 Tablet Oral Albuterol Sulfate 1 - 2 Puff(s) (of 108 (90 base) mcg/act) Aerosol Powder, Breath Activated Inhalation q 4 hours PRN Cetirizine HCl 1 Tablet (of 10 mg) Oral daily LORazepam 0.5 - 1 Tablet (of 1 mg) Oral t.i.d. PRN NexIUM 1 Capsule (of 20 mg) Capsule Delayed Release Oral daily Family History: Ms. Hoffman's mother is alive. Ms. Hoffman's father is alive. Ms. Hoffman's maternal grandmother is : colon cancer. 1 maternal aunt and 1 paternal aunt with breast cancer. Social History: Ms. Hoffman is and she is retired. Ms. Hoffman has never smoked. She has no history of drinking. Ms. Hoffman reports the following support systems: lives in own house. Review Of Symptoms: Constitutional Denies fevers, chills, night sweats, excessive fatigue or weight loss. Feels tired. Allergic/Immunologic No reactions. Eyes Denies significant visual changes. No diplopia. No amaurosis. ENMT Denies changes in hearing, sore throat, mouth sores, difficulty or changes in swallowing ability, and/or sinus drainage. Endocrine Denies hot flashes or night sweats. Hematologic/Lymphatic Denies easy bleeding or bruising. Breasts no concerns. Respiratory Denies dyspnea on exertion, chest pain, cough or hemoptysis. Denies orthopnea. Cardiovascular Denies anginal chest pain, palpitations or orthopnea. Gastrointestinal Denies diarrhea, GI bleeding, or constipation (some intermittent constipation but controlled with diet). Denies change in bowel habits and/or stool color, no heartburn or early satiety. Genitourinary (F) No hematuria, hesitancy, incontinence, vaginal bleeding, discharge or other problems with urination. Musculoskeletal Denies joint pain, swelling or redness. No decreased range of motion. Integumentary Denies chronic rashes, inflammation, ulcerations or skin changes. Neurologic Denies headache, blurred vision, and no areas of focal weakness or numbness. Normal gait. No new sensory problems. Psychiatric Denies insomnia, depression, tootie or mood swings. Vital Signs: Performed on Nov 02, 2020 12:10 Height - 69.00 in Weight - 233.4 lbs (LOW) BSA - 2.21 sq.m BMI - 34.47 (HIGH) Temperature - 96.9 F (LOW) Pulse - 95 /min Respiration - 18 /min BP - 136/81 mm(hg) O2 Sat - 99 % Pain - 2 Fatigue - 6,2 - Ambulatory/capable of all self-care, unable to perform any work activities. Up and about more than 50% of waking hours. (ECOG) Physical Examination: Constitutional Alert, oriented, no acute distress. Skin pink, warm and dry. Head Normocephalic; atraumatic. Eyes Conjunctivae and sclerae are clear and without icterus. Pupils are reactive and equal. Neck Supple without masses or thyromegaly. No jugular venous distension. Hematologic/Lymphatic No petechiae or purpura. No tender or palpable lymph nodes in the cervical or supraclavicular areas. Respiratory Lungs are clear to auscultation without rhonchi or wheezing. Cardiovascular Regular rate and rhythm of heart without murmurs,clicks, gallops or rubs. Chest Chest is symmetric without chest wall deformities. Left venous access device is unremarkable. Abdomen Non-tender, non-distended, no masses, ascites. Good bowel sounds noted in all quads. No guarding or rebound tenderness. No pulsatile masses. Right upper quadrant tenderness on deep palpation. Back/Spine Non-tender to palpation. Extremities No visible deformities, no cyanosis, clubbing or edema. Musculoskeletal No tenderness or swelling, normal range of motion without obvious weakness. Integumentary No rashes or lesions. Neurologic No sensory or motor deficits, normal cerebellar function, normal gait. Psychiatric Alert and oriented times three. Coherent speech. Verbalizes understanding of our discussions today. Laboratory:Test performed on Nov 02, 2020 10:20 Sodium 137 mmol/L Potassium 4.0 mmol/L Chloride 98 mmol/L CO2 31 mmol/L Anion Gap 12.0 BUN 10 mg/dL Creatinine 0.5 mg/dL Cr Clearance (Est) 210.7000 mL/min eGFR 127.6 mL/min Glucose 100 mg/dL Osmolality - Calculated 283 mOsm/kg Calcium 9.4 mg/dL Protein, Total 7.4 g/dL Albumin 3.7 g/dL Globulin 3.7 g/dL Bilirubin, Total 0.2 mg/dL ALT (SGPT) 52 U/L AST (SGOT) 28 U/L Alkaline Phosphatase 108 IU/L WBC 3.8 10 3/uL RBC 4.08 10 6/uL HGB 9.9 g/dL HCT 33.0 % MCV 80.9 fL MCH 24.3 pg MCHC 30.0 g/dL RDW 14.2 % Platelet Count 180 10 3/cmm MPV 9.0 fL Neutrophils 2.61 10 3/uL Lymphocytes 0.7 10 3/uL Monocytes 0.3 10 3/uL Eosinophils 0.1 10 3/uL Basophils 0.0 10 3/uL Neutrophil % 69.3 % Lymphocyte % 19.6 % Monocyte % 8.2 % Eosinophil % 1.6 % Basophils % 0.8 % NRBC % 0 % Test performed on Sep 24, 2020 10:19 Manual Lymphocytes 13.1 % Manual Monocytes 6.0 % Manual Eosinophils 4.6 % Manual Basophils 0.6 % Test performed on Jun 26, 2020 10:25 CA 15-3 43.5 U/mL CA 19-9 15.05 U/mL Impression: Due to right-arm weakness, MRI scan of the brain done on August 26, 2020 showed 5.1 x 3.8 x 5.4 cm new mass in the left parietal area for which she underwent left parietal tumor resection on August 08, 2020 and final pathology report showed metastatic high-grade metaplastic carcinoma (carcinosarcoma) immunohistochemistry positive for CK7, GA TA 3, mammaglobin, vimentin Negative for CK20, CDX2, TTF-1, PAX 08. Ki-67 more than 50%, ER/RI negative, HER-2/angelia 2+ by IHC, negative by DARREN. Patient underwent fractionated radiosurgery at [facility], as per patient she received [address] scan of chest done on June 04, 2020 showed large right pleural effusion with compressive atelectasis in the right lower lobe mild right to left mass-effect on mediastinum. Numerous enhancing pleural-based nodules involving right pleura posteriorly along the right lower lobe and extending along the right hemidiaphragm. Enhancing pleural-based nodules throughout the right lung and extending along the anterior mediastinum suspicious for pleural-based metastatic disease. Left lung clear, no mediastinal or hilar lymphadenopathy. Mild diffuse fatty infiltration of liver. Recurrent right pleural effusion status post multiple thoracentesis finally thoracentesis done on July 01, 2020 showed immunohistochemical stain highlight rare tumor cells, metastatic carcinoma as immunohistochemistry stain positive for CK7, CK cocktail, CK Pradeep,Christophe-EP4, and negative for estrogen receptor,GCDFP Status post right modified radical mastectomy with right axillary lymph node dissection done on 01/15/2019 showed infiltrating ductal carcinoma tumor size 2.5 x 1.5 cm, T2 and 0/3 lymph node positive for metastatic disease e.g. and 0, DCIS component comprises 15% of tumor volume. Stage IIa Infiltrating ductal carcinoma of right breast status post ultrasound-guided biopsy done on 12/20/2018, final pathology report showed infiltrating ductal carcinoma grade 3, Ki-67 40%, unfavorable, estrogen receptor less than 1%, negative progesterone receptor less than 1%, negative HER-2/angelia 1+, negative for HER-2/angelia overexpression by IHC and over amplification by FISH. BRCA1/2 testing done 02/07/2019 , came back negative Status post left prophylactic mastectomy done on 10/08/2019 Started on dose dense chemotherapy with Adriamycin Cytoxan every 2 weeks ???4 on 02/19/2019, will be followed by weekly Taxol ???12. She tolerated A/C well. She was transitioned to weekly paclitaxel. After 6 dose of weekly Taxol, she was changed to weekly Abraxane due to persistent hyperglycemia due to steroids. completed on 08/05/2019 Chronic hip pain due to chronic arthritis involving bilateral hip as per MRI scan of pelvis done on done on 08/16/2019 showed no evidence of metastatic disease.Chronic right shoulder pain due to rotator cuff, off and on for last 15 years Plan: PROBLEMS ADDRESSED TODAY 1. Metastatic breast cancer with known brain and bone metastasis. Her case was discussed with medical oncology at [facility] by Dr Hernández. The discussion was regarding pathology as there was a concern regarding whether she has a metastatic breast cancer metastasis to right pleural space and then to brain or a second primary. As per review of her medical records, it was concluded at [facility] that patient has metastatic breast cancer. Baseline PET/CT imaging on She has been offered palliative therapy with weekly carboplatin/gemcitabine along with 3 weekly Keytruda. She began weekly carboplatin AUC 2 and gemcitabine 1000 mg/m??? day 1 and 8 along with Keytruda on day 1 on 10/26/2020. A. Proceed with cycle 1 this is day 8. She is due for weekly carboplatin gemcitabine. She is tolerating treatment well thus far. B. Today's labs were reviewed in detail and discussed with Ms. Hoffman and a copy was given to her. WBC 3.8, hemoglobin 9.9, platelets 1 80,000 ANC is 2600. Potassium 4.0 creatinine 0.5 her ALT is 52 AST is 28 alk phos is 108. C. She was due for cycle 2-day 1 carboplatin gemcitabine pembrolizumab in 2 weeks. D. We will 1 watch her ANC closely as her ANC on day 1 was 6330 and is 2610 today on day 8. She did not receive growth factor support as of yet. 2. Right upper quadrant abdominal pain A. Continue Prevacid at twice a day dosing. B. I requested a HIDA scan of her gallbladder for further assessment of right upper quadrant pain. 3. Follow-up plan A. Should continue weekly interim CBC, CMP B. We will call her with results of the gallbladder scan once it is available. C. We will plan for her to follow-up with Dr. Hernández in 2 weeks for cycle 2-day 1. She will be due for CBC CMP and TSH for high risk medication/chemo/immunotherapy monitoring. She has had follow-up PET/CT and is aware of results but would like to discuss it further with Dr. Hernández. D. Mrs. Hoffman is encouraged to contact us in interim should questions or problems arise. Signed By: Mary Lama-, AOCNP Laurita Hernández MD <<Signature on File>>
== END 2020-11-02 05:41 | disposition home or self-care (01) ==
PROVIDERS: PCP Family Medicine; Visit Provider Nurse Practitioner
DX: Z51.11 Encounter for antineoplastic chemotherapy (principal); C50.411 Malignant neoplasm of upper-outer quadrant of right female breast; Z17.1 Estrogen receptor negative status [ER-]; C79.31 Secondary malignant neoplasm of brain; C79.51 Secondary malignant neoplasm of bone; F41.9 Anxiety disorder, unspecified; F32.9 Major depressive disorder, single episode, unspecified; J90 Pleural effusion, not elsewhere classified; M16.0 Bilateral primary osteoarthritis of hip; Z79.899 Other long term (current) drug therapy
CPT/HCPCS: 36415; 36593; 80053; 85025; 96367; 96375; 96413; 96417; 99215; J1100; J2469; J2997; J7040; J7050; J9045; J9201

== ENCOUNTER 2020-11-09 06:25 | Outpatient (CLI) | payer OTHER, SELFPAY ==
[2020-11-09] MEDS: alteplase 1 mg/mL SDV 2 mL 2 MG IV (09:10)
[2020-11-09 09:51] LABS: Basophils % 0.5 %; Hematocrit 31.7 % (37.0-47.0); Hemoglobin 9.5 g/dL (11.5-15.3); Lymphocytes # 0.6 10^3/uL (0.8-4.8); Lymphocytes % 29.8 %; Mean Corpuscular Hemoglobin 23.9 pg (28.0-34.0); Mean Corpuscular Volume 79.6 fL (81-99); Mean Platelet Volume 9.8 fL (7.4-10.4); Monocytes # 0.2 10^3/uL (0.2-0.9); Monocytes % 8.8 %; Neutrophils # 1.22 10^3/uL (1.8-7.7); Neutrophils % 59.4 %; Nucleated Red Blood Cells % 0 %; Platelet Count 61 10^3/cmm (130-400); Red Blood Count 3.98 10^6/uL (4.1-5.3); Red Cell Distribution Width 14.1 % (12.1-15.1); White Blood Count 2.1 10^3/uL (4.0-10.0)
[2020-11-09 10:07] LABS: Alanine Aminotransferase 100 U/L (0-33); Albumin Level 3.5 g/dL (3.5-5.2); Alkaline Phosphatase 110 IU/L (35-105); Anion Gap 13.9 (5-19); Aspartate Amino Transferase 47 U/L (0-32); Blood Urea Nitrogen 9 mg/dL (6-20); Calcium 9.2 mg/dL (8.5-10.5); Carbon Dioxide 29 mmol/L (22-29); Chloride 99 mmol/L (98-107); Globulin 3.5 g/dL (1.3-4.6); Glomerular Filtration Rate 127.6 mL/min (90-130); Glucose 106 mg/dL (65-115); Osmolality Calculated 285 mOsm/kg (285-295); Potassium 3.9 mmol/L (3.5-5.1); Sodium 138 mmol/L (136-145); Total Bilirubin 0.2 mg/dL (0.15-1.2)
== END 2020-11-09 06:26 | disposition home or self-care (01) ==
LOC: ONCMED 06:27
PROVIDERS: PCP Family Medicine; Visit Provider Nurse Practitioner
DX: C50.411 Malignant neoplasm of upper-outer quadrant of right female breast (principal); Z17.1 Estrogen receptor negative status [ER-]
CPT/HCPCS: 36593; 80053; 85025; 96374; J2997

== ENCOUNTER 2020-11-16 05:51 | Outpatient (CLI) | payer OTHER, SELFPAY ==
[2020-11-16 09:30] LABS: Basophils % 0.5 %; Eosinophils # 0.1 10^3/uL (0.0-0.8); Eosinophils % 2.1 %; Hematocrit 34.1 % (37.0-47.0); Hemoglobin 10.1 g/dL (11.5-15.3); Lymphocytes # 0.8 10^3/uL (0.8-4.8); Lymphocytes % 12.3 %; Mean Corpuscular HGB Conc 29.6 g/dL (30.0-36.0); Mean Corpuscular Hemoglobin 24.2 pg (28.0-34.0); Mean Corpuscular Volume 81.6 fL (81-99); Mean Platelet Volume 9.3 fL (7.4-10.4); Monocytes # 0.6 10^3/uL (0.2-0.9); Monocytes % 8.9 %; Neutrophils # 4.75 10^3/uL (1.8-7.7); Neutrophils % 75.7 %; Nucleated Red Blood Cells % 0 %; Platelet Count 415 10^3/cmm (130-400); Red Blood Count 4.18 10^6/uL (4.1-5.3); Red Cell Distribution Width 16.3 % (12.1-15.1); White Blood Count 6.3 10^3/uL (4.0-10.0)
[2020-11-16 09:49] LABS: Alanine Aminotransferase 81 U/L (0-33); Albumin Level 3.6 g/dL (3.5-5.2); Alkaline Phosphatase 130 IU/L (35-105); Aspartate Amino Transferase 31 U/L (0-32); Blood Urea Nitrogen 7 mg/dL (6-20); Calcium 9.3 mg/dL (8.5-10.5); Carbon Dioxide 28 mmol/L (22-29); Chloride 96 mmol/L (98-107); Globulin 3.6 g/dL (1.3-4.6); Glomerular Filtration Rate 127.6 mL/min (90-130); Glucose 123 mg/dL (65-115); Osmolality Calculated 277 mOsm/kg (285-295); Sodium 134 mmol/L (136-145); Total Bilirubin 0.2 mg/dL (0.15-1.2); Total Protein 7.2 g/dL (6.6-8.7)
[2020-11-16] MEDS: palonosetron 0.25 mg/5 mL SDV IVP (11:23)
[2020-11-16] MEDS: sodium chloride 0.9% 250 ML 75 ML IV (11:23)
--- NOTE | 2020-11-16 16:56 | ONC FU_ITS ---
Dr. Hernández follow up note Patient: Agatha Hoffman Unit #: [id number]: 1965 Dicatated By: Laurita Hernández M.D.Date of Visit:Nov 16, 2020 Onc Med Follow-up/Prog Note History of Present Illness: Ms. Hoffman is a 55-year-old female with long-standing history of right breast lump. She underwent right breast biopsy about 6 years ago, at that time she was told it was a benign. Recently she noticed pain and discomfort in her right breast so underwent bilateral mammogram on 12/05/2018. 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 BRCA 1/2 came back negative Patient denied any nipple discharge patient denies any nipple retraction, but complaining of discomfort in her right breast, denies any right axillary fullness, denies any trauma to her breast. She also denied any bony pain. History of back pain due to back injury about 15 years ago and intolerance to NSAIDs because of persistent severe nausea vomiting. Ms Hoffman underwent right modified radical mastectomy with right axilla lymph node dissection On 01/15/2019. The final pathology report showed 2.5 x 1.5 cm infiltrating ductal carcinoma, 0 out of 3 lymph nodes showed metastatic disease. Echocardiogram done on 02/07/2019 showed a Ejection fraction 77.3% Ms Hoffman started on adjuvant chemotherapy with dose dense Adriamycin Cytoxan With Neulasta support (to prevent chemotherapy-induced neutropenia) on 02/19/2019. s/p 4 doses of Adriamycin Cytoxan. She was transitioned to weekly paclitaxel on 04/29/2019. She had issues with hyperglycemia due to steroids; so on 06/10/2019 paclitaxel was switched to Abraxane for the remaining 6 doses of her planned therapy and completed on 08/05/2019 On 05/31/2019 she developed painful, clear fluid filled blisters on her mid upper back area. She went to emergency room where she was given acyclovir for shingles- now resolved. On 06/16/2019 she was admitted to hospital with not feeling well, fever of with yellowish phlegm and was treated as inpatient with IV antibiotics and felt better. She had some residual neuropathy but states it is no worse than what it has been. worsening bilateral hip pain and lower back pain . She states is been there forever and is chronic. She is also having worsening knee pain but states that hips are worse. She is had no recent trauma or falls. She states the pain just seems to be more persistent and does not let up. She does try Tylenol and Aleve. She states she is taken hydrocodone in the past with good relief. At least allowed her to get her activities of daily living accomplished in a timely manner. For which she underwent MRI scan of the pelvis on 08/16/2019 which showed no evidence of metastatic disease, moderate degenerative arthritis both hips. No sacral fracture and no bony metastases. She is also having some vision changes and that she is having wavy vision which she states is happened in the past with an aura before she had a migraine headache.For which she underwent MRI scan of the head on 08/16/2019 which showed no evidence of metastatic disease. Echocardiogram done on 08/05/2019 showed ejection fraction 65% off and on right shoulder pain, for the last 15 years, now progressive, as per patient, in the past she was told pain is due to problem with her rotator cuff and now pain is becoming bothersome. Cannot take Motrin the cause of intolerance so trying Tylenol with some help.-For which she underwent MRI scan of the C-spine on October 06, 2019 which showed central disc osteophyte protrusion at C5-C6 also had MRI scan of right shoulder done on January 03, 2020 which showed moderate degenerative arthritis at the AC joint with a mild edema and mild downsloping of acromion with subacromial spurring. Chronic tenting of supraspinatus and tiny intrasubstance tear distally. Patient was given steroid injection in the right shoulder with that her pain improved significantly. Patient recently underwent prophylactic left mastectomy on 10/08/2019. progressive shortness of breath and right lower chest pain and cough, as per patient about 2 months ago, she fell in her porch and injured her left knee torn ACL and her leg was immobilized for 6 weeks and then to reevaluate for surgical options. Patient said on April 04, 2020 she started experience shortness of breath, no fever, no hemoptysis no hematemesis she thought it was due to allergies as she has many cats and went to see her PMD who gave her Claritin, without much help then he was switched to Zyrtec her shortness of breath continue worse eventually she had a chest x-ray done which showed right pleural effusion subsequently underwent CT scan of chest on June 04, 2020 which showed large right pleural effusion with compressive atelectasis in the right lower lobe mild right to left mass-effect on the mediastinum. Numerous enhancing pleural-based nodules involving the right pleura posteriorly along the right lower lobe and extending along the right hemidiaphragm. Enhancing pleural-based nodules throughout the right lung and extending along the anterior mediastinum suspicious for pleural-based metastatic disease. Left lung clear no mediastinal or hilar lymphadenopathy, mild diffuse fatty infiltration of the liver .Patient was referred to pulmonology for evaluation on June 05, 2020 patient underwent right thoracentesis and about 2 L of bloody fluid was removed and patient felt better immediately and fluid was sent for cytology which came back as negative for malignancy, Repeat right thoracentesis done on July 01, 2020 and the cytology came back rare tumor cell, metastatic carcinoma, chronic inflammation with reactive mesothelial cell and immunohistochemistry positive for CK7, CK cocktail, CK Pradeep,Christophe-EP4, and negative for GCDFP, estrogen receptor CT PET scan done on July 18, 2020 showed a right retropectoral node measuring 2.3 x 1.2 cm has SUV of 10.9. Within the right hemithorax there are multiple pleural-based nodules with FDG uptake consistent with recurrent malignancy, as well as previously described large effusion. Nodules are more prominent dependently, with index nodule at the anterior medial right middle lobe adherent to the mediastinum measuring 2.1 x 2.0 cm with SUV of 14.2 and other lesions have SUV up to 18.1. Activity in the subcentimeter celiac node and abdomen has SUV of 3.7 highly suspicious for malignancy Patient underwent MRI scan of brain on July 27, 2020 showed heterogeneously enhancing lesion measuring 5.1 x 3.8 x 5.4 cm with moderate surrounding edema with partial effacement of posterior horn of left lateral ventricle, left to right midline shift measuring 6 mm, underwent left parietal tumor resection on August 08, 2020 at [place], final pathology report reported in medical record as metastatic high-grade metaplastic carcinoma (carcinosarcoma), consistent with breast primary immunohistochemistry positive for CK7, ALVIN 3, mammaglobin and vimentin. Negative for CK20, CDX, TTF-1, PAX 08, Ki-67 more than 50%, ER/CA positive HER-2/angelia 2+ by IHC, negative by DARREN Ms Hoffman was evaluated by Dr. Chavez, Medical oncologist at [place] on August 24, 2020 and she was recommended carboplatin/gemcitabine/pembrolizumab and guardant 360 for somatic mutation was ordered in peripheral blood Ms Hoffman reports she was had been getting repeated right thoracentesis at [place] and last time was mid September 2020. She states it was about 200 cc and she was told that it could be due to adhesions and pockets formation. Mrs. Hoffman underwent PET CT imaging on October 03, 2020. Comparison was made to 07/18/2020 imaging the right retropectoral node that previously measured 2.3 x 1.2 cm with an SUV of 10.9 was slightly progressed on the September 2020 study. It was measuring 2.8 x 1.5 cm with an SUV of 9.8. The index nodule at the anterior medial right middle lobe adherent to the mediastinum that previously measured 2.1 x 2.0 cm with an SUV of 14.2 measured 2.5 cm in diameter with an SUV of 9.1, indeterminate for progression or response. However there was a new central node measuring 1.7 x 1.9 cm with an SUV of 7.1. The right effusion had improved in volume and multiple other pleural implants are comparable to the previous study. Suspicious celiac upper abdominal node is stable with an SUV of 3.5. A new site of abnormal activity in the right aspect of the T12 vertebral body has an SUV of 9.9 consistent with new osseous metastatic disease. Mrs. Hoffman was offered further chemotherapy with carboplatin gemcitabine and pembrolizumab. She began her first cycle on October 26, 2020. Came for follow-up, denies any specific complaint except off and on pain in right upper quadrant but no nausea or vomiting no diarrhea or constipation, and generalized weakness and fatigue, on narcotics for pain control, no jaundice, no hemoptysis or hematemesis, no headaches. Tolerated first cycle of chemotherapy with Keytruda/gemcitabine/carboplatin well. Medications: Acetaminophen 1 Tablet (of 500 mg) Oral PRN, Acetaminophen-Codeine #3 Tablet Oral, Albuterol Sulfate 1 - 2 Puff(s) (of 108 (90 base) mcg/act) Aerosol Powder, Breath Activated Inhalation q 4 hours PRN, Cetirizine HCl 1 Tablet (of 10 mg) Oral daily, LORazepam 0.5 - 1 Tablet (of 1 mg) Oral t.i.d. PRN, NexIUM 1 Capsule (of 20 mg) Capsule Delayed Release Oral daily Allergies: Ibuprofen and NSAIDs. Review of Systems: Review of Systems is not available for this patient. Vital Signs: Performed on Nov 16, 2020 10:40 Height - 69.00 in Weight - 228.8 lbs (LOW) BSA - 2.19 sq.m BMI - 33.79 (HIGH) Temperature - 98.3 F (LOW) Pulse - 96 /min Respiration - 18 /min BP - 134/86 mm(hg) O2 Sat - 98 % Pain - 2 Fatigue - 4 Performance Status: 2 - Ambulatory/capable of all self-care, unable to perform any work activities. Up and about more than 50% of waking hours. (ECOG) Physical Examination: Respiratory - Lungs are clear to auscultation, Cardiovascular - Regular rate and rhythm of heart, Gastrointestinal - Soft, bowel sounds present, Extremities - 1+ edema bilaterally. Lab/Imaging: Test performed on Nov 16, 2020 10:22 Creatinine 0.5 mg/dL Cr Clearance (Est) 210.70 mL/min Test performed on Nov 02, 2020 10:20 Sodium 137 mmol/L Potassium 4.0 mmol/L Chloride 98 mmol/L CO2 31 mmol/L Anion Gap 12.0 BUN 10 mg/dL eGFR 127.6 mL/min Glucose 100 mg/dL Osmolality - Calculated 283 mOsm/kg Calcium 9.4 mg/dL Protein, Total 7.4 g/dL Albumin 3.7 g/dL Globulin 3.7 g/dL Bilirubin, Total 0.2 mg/dL ALT (SGPT) 52 U/L AST (SGOT) 28 U/L Alkaline Phosphatase 108 IU/L WBC 3.8 10 3/uL RBC 4.08 10 6/uL HGB 9.9 g/dL HCT 33.0 % MCV 80.9 fL MCH 24.3 pg MCHC 30.0 g/dL RDW 14.2 % Platelet Count 180 10 3/cmm MPV 9.0 fL Neutrophils 2.61 10 3/uL Lymphocytes 0.7 10 3/uL Monocytes 0.3 10 3/uL Eosinophils 0.1 10 3/uL Basophils 0.0 10 3/uL Neutrophil % 69.3 % Lymphocyte % 19.6 % Monocyte % 8.2 % Eosinophil % 1.6 % Basophils % 0.8 % NRBC % 0 % Test performed on Sep 24, 2020 10:19 Manual Lymphocytes 13.1 % Manual Monocytes 6.0 % Manual Eosinophils 4.6 % Manual Basophils 0.6 % Test performed on Jun 26, 2020 10:25 CA 15-3 43.5 U/mL CA 19-9 15.05 U/mL Impression: Due to right-arm weakness, MRI scan of the brain done on August 26, 2020 showed 5.1 x 3.8 x 5.4 cm new mass in the left parietal area for which she underwent left parietal tumor resection on August 08, 2020 and final pathology report showed metastatic high-grade metaplastic carcinoma (carcinosarcoma) immunohistochemistry positive for CK7, GA TA 3, mammaglobin, vimentin Negative for CK20, CDX2, TTF-1, PAX 08. Ki-67 more than 50%, ER/CA negative, HER-2/angelia 2+ by IHC, negative by DARREN. Patient underwent fractionated radiosurgery at [place], as per patient she received [address] scan of chest done on June 04, 2020 showed large right pleural effusion with compressive atelectasis in the right lower lobe mild right to left mass-effect on mediastinum. Numerous enhancing pleural-based nodules involving right pleura posteriorly along the right lower lobe and extending along the right hemidiaphragm. Enhancing pleural-based nodules throughout the right lung and extending along the anterior mediastinum suspicious for pleural-based metastatic disease. Left lung clear, no mediastinal or hilar lymphadenopathy. Mild diffuse fatty infiltration of liver. Recurrent right pleural effusion status post multiple thoracentesis finally thoracentesis done on July 01, 2020 showed immunohistochemical stain highlight rare tumor cells, metastatic carcinoma as immunohistochemistry stain positive for CK7, CK cocktail, CK Pradeep,Christophe-EP4, and negative for estrogen receptor,GCDFP Status post right modified radical mastectomy with right axillary lymph node dissection done on 01/15/2019 showed infiltrating ductal carcinoma tumor size 2.5 x 1.5 cm, T2 and 0/3 lymph node positive for metastatic disease e.g. and 0, DCIS component comprises 15% of tumor volume. Stage IIa Infiltrating ductal carcinoma of right breast status post ultrasound-guided biopsy done on 12/20/2018, final pathology report showed infiltrating ductal carcinoma grade 3, Ki-67 40%, unfavorable, estrogen receptor less than 1%, negative progesterone receptor less than 1%, negative HER-2/angelia 1+, negative for HER-2/angelia overexpression by IHC and over amplification by FISH. BRCA1/2 testing done 02/07/2019 , came back negative Status post left prophylactic mastectomy done on 10/08/2019 Started on dose dense chemotherapy with Adriamycin Cytoxan every 2 weeks ???4 on 02/19/2019, will be followed by weekly Taxol ???12. She tolerated A/C well. She was transitioned to weekly paclitaxel. After 6 dose of weekly Taxol, she was changed to weekly Abraxane due to persistent hyperglycemia due to steroids. completed on 08/05/2019 Chronic hip pain due to chronic arthritis involving bilateral hip as per MRI scan of pelvis done on done on 08/16/2019 showed no evidence of metastatic disease.Chronic right shoulder pain due to rotator cuff, off and on for last 15 years Plan: Discussed with patient regarding her labs white blood count 6.3 hemoglobin 10.1 hematocrit 34.1 platelets 415,000 compared to 61,000 on November 09, 2020 CMP within normal limits except ALT 81 and alk phos 130 Clinically, patient is doing well with no new signs symptom suggestive of disease progression, tolerated first cycle of chemotherapy with Keytruda/gemcitabine/carboplatin well, her follow-up lab work-up shows pancytopenia has improved with resolution of chemotherapy-induced leukopenia and thrombocytopenia. We will proceed with cycle #2 with Keytruda/gemcitabine/carboplatin today and then she will return to clinic in 1 week with CBC CMP and for day 8 carboplatin/gemcitabine. As per patient she is scheduled for MRI scan of the brain by neurosurgery on December 07, 2020 patient does not want to travel and was requesting if it can be done here and send him report for evaluation, our clinic will contact neurosurgery at [place] regarding follow-up MRI head. Right upper quadrant discomfort/pain could be due to gallbladder malfunction, will follow with HIDA scan test/report. As for generalized weakness and fatigue is concerned probably multifactorial including narcotics. We will also consider Xgeva to prevent skeletal related complication as patient has increased uptake in T12 suggestive of osseous metastatic disease. Return to clinic in 1 week with CBC CMP if reasonable and for day 8 chemotherapy with carboplatin/gemcitabine Signed By: Laurita Hernández M.D. <<Signature on File>>
== END 2020-11-16 05:52 | disposition home or self-care (01) ==
LOC: ONCMED 05:52
PROVIDERS: PCP Family Medicine; Visit Provider Internal Medicine Hematology & Oncology
DX: Z51.12 Encounter for antineoplastic immunotherapy (principal); C50.411 Malignant neoplasm of upper-outer quadrant of right female breast; C79.31 Secondary malignant neoplasm of brain; C78.2 Secondary malignant neoplasm of pleura; J91.0 Malignant pleural effusion; R93.7 Abnormal findings on diagnostic imaging of other parts of musculoskeletal system; D61.810 Antineoplastic chemotherapy induced pancytopenia; T45.1X5D Adverse effect of antineoplastic and immunosuppressive drugs, subsequent encounter; R53.1 Weakness; R10.11 Right upper quadrant pain; R53.83 Other fatigue; M16.0 Bilateral primary osteoarthritis of hip; G89.29 Other chronic pain; M25.511 Pain in right shoulder; Z17.1 Estrogen receptor negative status [ER-]; Z90.13 Acquired absence of bilateral breasts and nipples; Z79.899 Other long term (current) drug therapy
CPT/HCPCS: 80053; 85025; 96367; 96375; 96413; 96417; 99214; J1100; J2469; J7040; J7050; J9045; J9201; J9271

== ENCOUNTER 2020-11-23 05:45 | Outpatient (CLI) | payer OTHER, SELFPAY ==
[2020-11-23 09:05] LABS: Eosinophils % 0.5 %; Hematocrit 30.4 % (37.0-47.0); Hemoglobin 9.3 g/dL (11.5-15.3); Lymphocytes # 0.8 10^3/uL (0.8-4.8); Lymphocytes % 21.4 %; Mean Corpuscular HGB Conc 30.6 g/dL (30.0-36.0); Mean Corpuscular Hemoglobin 24.7 pg (28.0-34.0); Mean Corpuscular Volume 80.9 fL (81-99); Mean Platelet Volume 8.9 fL (7.4-10.4); Monocytes # 0.5 10^3/uL (0.2-0.9); Monocytes % 11.7 %; Neutrophils # 2.41 10^3/uL (1.8-7.7); Neutrophils % 61.3 %; Nucleated Red Blood Cells % 0 %; Platelet Count 236 10^3/cmm (130-400); Red Blood Count 3.76 10^6/uL (4.1-5.3); Red Cell Distribution Width 16.2 % (12.1-15.1); White Blood Count 3.9 10^3/uL (4.0-10.0)
[2020-11-23 09:26] LABS: Alanine Aminotransferase 151 U/L (0-33); Albumin Level 3.5 g/dL (3.5-5.2); Alkaline Phosphatase 131 IU/L (35-105); Anion Gap 15.1 (5-19); Aspartate Amino Transferase 75 U/L (0-32); Blood Urea Nitrogen 8 mg/dL (6-20); Calcium 9.3 mg/dL (8.5-10.5); Carbon Dioxide 29 mmol/L (22-29); Chloride 97 mmol/L (98-107); Globulin 3.6 g/dL (1.3-4.6); Glomerular Filtration Rate 127.6 mL/min (90-130); Glucose 111 mg/dL (65-115); Osmolality Calculated 283 mOsm/kg (285-295); Potassium 4.1 mmol/L (3.5-5.1); Sodium 137 mmol/L (136-145); Total Bilirubin 0.3 mg/dL (0.15-1.2); Total Protein 7.1 g/dL (6.6-8.7)
--- NOTE | 2020-11-23 19:47 | ONC FU_ITS ---
[facility] Patient Note Patient: Agatha Hoffman Unit #: [id number]: 1965 Dictated By: Mary LamaDate of Visit: Nov 23, 2020 Onc MED Follow-Up/Prog Note Chief Complaint: Right breast cancer History of Present Illness: Ms. Hoffman is a 55-year-old female with long-standing history of right breast lump. She underwent right breast biopsy about 6 years ago, at that time she was told it was a benign. Recently she noticed pain and discomfort in her right breast so underwent bilateral mammogram on 12/05/2018. 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 BRCA 1/2 came back negative Patient denied any nipple discharge patient denies any nipple retraction, but complaining of discomfort in her right breast, denies any right axillary fullness, denies any trauma to her breast. She also denied any bony pain. History of back pain due to back injury about 15 years ago and intolerance to NSAIDs because of persistent severe nausea vomiting. Ms Hoffman underwent right modified radical mastectomy with right axilla lymph node dissection On 01/15/2019. The final pathology report showed 2.5 x 1.5 cm infiltrating ductal carcinoma, 0 out of 3 lymph nodes showed metastatic disease. Echocardiogram done on 02/07/2019 showed a Ejection fraction 77.3% Ms Hoffman started on adjuvant chemotherapy with dose dense Adriamycin Cytoxan With Neulasta support (to prevent chemotherapy-induced neutropenia) on 02/19/2019. s/p 4 doses of Adriamycin Cytoxan. She was transitioned to weekly paclitaxel on 04/29/2019. She had issues with hyperglycemia due to steroids; so on 06/10/2019 paclitaxel was switched to Abraxane for the remaining 6 doses of her planned therapy and completed on 08/05/2019 On 05/31/2019 she developed painful, clear fluid filled blisters on her mid upper back area. She went to emergency room where she was given acyclovir for shingles- now resolved. On 06/16/2019 she was admitted to hospital with not feeling well, fever of with yellowish phlegm and was treated as inpatient with IV antibiotics and felt better. She had some residual neuropathy but states it is no worse than what it has been. worsening bilateral hip pain and lower back pain . She states is been there forever and is chronic. She is also having worsening knee pain but states that hips are worse. She is had no recent trauma or falls. She states the pain just seems to be more persistent and does not let up. She does try Tylenol and Aleve. She states she is taken hydrocodone in the past with good relief. At least allowed her to get her activities of daily living accomplished in a timely manner. For which she underwent MRI scan of the pelvis on 08/16/2019 which showed no evidence of metastatic disease, moderate degenerative arthritis both hips. No sacral fracture and no bony metastases. She is also having some vision changes and that she is having wavy vision which she states is happened in the past with an aura before she had a migraine headache.For which she underwent MRI scan of the head on 08/16/2019 which showed no evidence of metastatic disease. Echocardiogram done on 08/05/2019 showed ejection fraction 65% off and on right shoulder pain, for the last 15 years, now progressive, as per patient, in the past she was told pain is due to problem with her rotator cuff and now pain is becoming bothersome. Cannot take Motrin the cause of intolerance so trying Tylenol with some help.-For which she underwent MRI scan of the C-spine on October 06, 2019 which showed central disc osteophyte protrusion at C5-C6 also had MRI scan of right shoulder done on January 03, 2020 which showed moderate degenerative arthritis at the AC joint with a mild edema and mild downsloping of acromion with subacromial spurring. Chronic tenting of supraspinatus and tiny intrasubstance tear distally. Patient was given steroid injection in the right shoulder with that her pain improved significantly. Patient recently underwent prophylactic left mastectomy on 10/08/2019. progressive shortness of breath and right lower chest pain and cough, as per patient about 2 months ago, she fell in her porch and injured her left knee torn ACL and her leg was immobilized for 6 weeks and then to reevaluate for surgical options. Patient said on April 04, 2020 she started experience shortness of breath, no fever, no hemoptysis no hematemesis she thought it was due to allergies as she has many cats and went to see her PMD who gave her Claritin, without much help then he was switched to Zyrtec her shortness of breath continue worse eventually she had a chest x-ray done which showed right pleural effusion subsequently underwent CT scan of chest on June 04, 2020 which showed large right pleural effusion with compressive atelectasis in the right lower lobe mild right to left mass-effect on the mediastinum. Numerous enhancing pleural-based nodules involving the right pleura posteriorly along the right lower lobe and extending along the right hemidiaphragm. Enhancing pleural-based nodules throughout the right lung and extending along the anterior mediastinum suspicious for pleural-based metastatic disease. Left lung clear no mediastinal or hilar lymphadenopathy, mild diffuse fatty infiltration of the liver .Patient was referred to pulmonology for evaluation on June 05, 2020 patient underwent right thoracentesis and about 2 L of bloody fluid was removed and patient felt better immediately and fluid was sent for cytology which came back as negative for malignancy, Repeat right thoracentesis done on July 01, 2020 and the cytology came back rare tumor cell, metastatic carcinoma, chronic inflammation with reactive mesothelial cell and immunohistochemistry positive for CK7, CK cocktail, CK Pradeep,Christophe-EP4, and negative for GCDFP, estrogen receptor CT PET scan done on July 18, 2020 showed a right retropectoral node measuring 2.3 x 1.2 cm has SUV of 10.9. Within the right hemithorax there are multiple pleural-based nodules with FDG uptake consistent with recurrent malignancy, as well as previously described large effusion. Nodules are more prominent dependently, with index nodule at the anterior medial right middle lobe adherent to the mediastinum measuring 2.1 x 2.0 cm with SUV of 14.2 and other lesions have SUV up to 18.1. Activity in the subcentimeter celiac node and abdomen has SUV of 3.7 highly suspicious for malignancy Patient underwent MRI scan of brain on July 27, 2020 showed heterogeneously enhancing lesion measuring 5.1 x 3.8 x 5.4 cm with moderate surrounding edema with partial effacement of posterior horn of left lateral ventricle, left to right midline shift measuring 6 mm, underwent left parietal tumor resection on August 08, 2020 at [facility], final pathology report reported in medical record as metastatic high-grade metaplastic carcinoma (carcinosarcoma), consistent with breast primary immunohistochemistry positive for CK7, ALVIN 3, mammaglobin and vimentin. Negative for CK20, CDX, TTF-1, PAX 08, Ki-67 more than 50%, ER/CA positive HER-2/angelia 2+ by IHC, negative by DARREN Ms Hoffman was evaluated by Dr. Chavez, Medical oncologist at [facility] on August 24, 2020 and she was recommended carboplatin/gemcitabine/pembrolizumab and guardant 360 for somatic mutation was ordered in peripheral blood Ms Hoffman reports she was had been getting repeated right thoracentesis at [facility] and last time was mid September 2020. She states it was about 200 cc and she was told that it could be due to adhesions and pockets formation. Mrs. Hoffman underwent PET CT imaging on October 03, 2020. Comparison was made to 07/18/2020 imaging the right retropectoral node that previously measured 2.3 x 1.2 cm with an SUV of 10.9 was slightly progressed on the September 2020 study. It was measuring 2.8 x 1.5 cm with an SUV of 9.8. The index nodule at the anterior medial right middle lobe adherent to the mediastinum that previously measured 2.1 x 2.0 cm with an SUV of 14.2 measured 2.5 cm in diameter with an SUV of 9.1, indeterminate for progression or response. However there was a new central node measuring 1.7 x 1.9 cm with an SUV of 7.1. The right effusion had improved in volume and multiple other pleural implants are comparable to the previous study. Suspicious celiac upper abdominal node is stable with an SUV of 3.5. A new site of abnormal activity in the right aspect of the T12 vertebral body has an SUV of 9.9 consistent with new osseous metastatic disease. Mrs. Hoffman was offered further chemotherapy with carboplatin gemcitabine and pembrolizumab. She began her first cycle on October 26, 2020. She has completed 1 full cycle and cycle 2-day 1 was completed last week. She has tolerated it well overall. Ms. Hoffman is here today for follow-up. She states that she has fatigue after treatment that seems to be getting a little worse each time. She states she also has episodes of right chest wall pain for about 3 to 4 days after treatment. She states it does not get unbearable but is definitely different right upper treatment. She denies that it is really shortness of breath. She states is just a achy pain in the right chest wall. She denies any fever or chills. She denies any mouth sores sore throat or difficulty swallowing. She continues to have problems eating as that eating tends to bother her stomach . She is told she needed to have her gallbladder worked up in the past although this has not been done. I did request I HIDA scan at the last visit I saw her 02 November but for unknown reasons that has not been accomplished. We will reorder it urgently today as she is having significant pain in the right upper quadrant. He is even tender on palpation. She states that just eating boiled chicken and green beans tends to upset her stomach. She is eating very little by her report. Thus far her weight has remained stable. It is noted that her ALT is elevated today at 151 and her AST is 75. Alk phos is 131. In regards to her chemotherapy she seems to be tolerating that well although she has developed a rash on her lower back area there is also in the left axilla. It is just a red raised nonwhelping, nondraining rash. She states it is very itchy. Other than the gallbladder/stomach issue she states she has no further pain. The fatigue is present 10 she states that she is sleeping a lot. We did discuss agents that would may help keep her awake but she is not interested in pursuing that at this time. She feels that her pain is adequately controlled with her current pain regimen and does not want increase any medications there either. Her ECOG is 2. Past Medical History: Anxiety Depression Past Surgical History: Breast biopsy - 3 right breat-benign, 1 left breast-malignant Lipoma removal right flank Portacatheter placement (dr. holm) Tubal ligation in 1991 Caesarean section in 1984 Allergies: Ibuprofen and NSAIDs. Medications: Acetaminophen 1 Tablet (of 500 mg) Oral PRN Acetaminophen-Codeine #3 Tablet Oral Albuterol Sulfate 1 - 2 Puff(s) (of 108 (90 base) mcg/act) Aerosol Powder, Breath Activated Inhalation q 4 hours PRN Cetirizine HCl 1 Tablet (of 10 mg) Oral daily LORazepam 0.5 - 1 Tablet (of 1 mg) Oral t.i.d. PRN NexIUM 1 Capsule (of 20 mg) Capsule Delayed Release Oral daily Family History: Ms. Hoffman's mother is alive. Ms. Hoffman's father is alive. Ms. Hoffman's maternal grandmother is : colon cancer. 1 maternal aunt and 1 paternal aunt with breast cancer. Social History: Ms. Hoffman is and she is retired. Ms. Hoffman has never smoked. She has no history of drinking. Ms. Hoffman reports the following support systems: lives in own house. Review Of Symptoms: Constitutional Denies fevers, chills, night sweats, excessive fatigue or weight loss. Feels tired. Allergic/Immunologic No reactions. Eyes Denies significant visual changes. No diplopia. No amaurosis. ENMT Denies changes in hearing, sore throat, mouth sores, difficulty or changes in swallowing ability, and/or sinus drainage. Endocrine Denies hot flashes or night sweats. Hematologic/Lymphatic Denies easy bleeding or bruising. Breasts no concerns. Respiratory Denies dyspnea on exertion, chest pain, cough or hemoptysis. Denies orthopnea. Cardiovascular Denies anginal chest pain, palpitations or orthopnea. Gastrointestinal Denies diarrhea, GI bleeding, or constipation (some intermittent constipation but controlled with diet). Denies change in bowel habits and/or stool color, no heartburn-controlled with Prevacid. getting sick at stomach after I eat-I can only eat certain things . RUQ abdominal pain. Genitourinary (F) No hematuria, hesitancy, incontinence, vaginal bleeding, discharge or other problems with urination. Musculoskeletal Denies joint pain, swelling or redness. No decreased range of motion. Integumentary Denies chronic rashes, inflammation, ulcerations or skin changes. Rash on back since last visit-see above. Neurologic Denies headache, blurred vision, and no areas of focal weakness or numbness. Normal gait. No new sensory problems. Psychiatric Denies insomnia, depression, tootie or mood swings. Vital Signs: Performed on Nov 23, 2020 09:36 Height - 69.00 in Weight - 228.4 lbs (LOW) BSA - 2.19 sq.m BMI - 33.73 (HIGH) Temperature - 97.1 F (LOW) Pulse - 99 /min Respiration - 18 /min BP - 148/87 mm(hg) (HIGH) O2 Sat - 96 % Pain - 2 Fatigue - 5,2 - Ambulatory/capable of all self-care, unable to perform any work activities. Up and about more than 50% of waking hours. (ECOG) Physical Examination: Constitutional Alert, oriented, no acute distress. Skin pink, warm and dry. Head Normocephalic; atraumatic. Eyes Conjunctivae and sclerae are clear and without icterus. Pupils are reactive and equal. Neck Supple without masses or thyromegaly. No jugular venous distension. Hematologic/Lymphatic No petechiae or purpura. No tender or palpable lymph nodes in the cervical or supraclavicular areas. Respiratory Lungs are clear to auscultation without rhonchi or wheezing. Cardiovascular Regular rate and rhythm of heart without murmurs,clicks, gallops or rubs. Chest Chest is symmetric without chest wall deformities. Left venous access device is unremarkable. Abdomen Non-tender, non-distended, no masses, ascites. Good bowel sounds noted in all quads. No guarding or rebound tenderness. No pulsatile masses. Right upper quadrant tenderness on light palpation. Back/Spine Non-tender to palpation. Extremities No visible deformities, no cyanosis, clubbing or edema. Musculoskeletal No tenderness or swelling, normal range of motion without obvious weakness. Integumentary Scattered raised slightly red rash on small of the back and left axilla. There are no pustules or whelps at this time. Neurologic No sensory or motor deficits, normal cerebellar function, normal gait. Psychiatric Alert and oriented times three. Coherent speech. Verbalizes understanding of our discussions today. Laboratory:Test performed on Nov 23, 2020 08:40 Sodium 137 mmol/L Potassium 4.1 mmol/L Chloride 97 mmol/L CO2 29 mmol/L Anion Gap 15.1 BUN 8 mg/dL Creatinine 0.5 mg/dL Cr Clearance (Est) 210.7000 mL/min eGFR 127.6 mL/min Glucose 111 mg/dL Osmolality - Calculated 283 mOsm/kg Calcium 9.3 mg/dL Protein, Total 7.1 g/dL Albumin 3.5 g/dL Globulin 3.6 g/dL Bilirubin, Total 0.3 mg/dL ALT (SGPT) 151 U/L AST (SGOT) 75 U/L Alkaline Phosphatase 131 IU/L WBC 3.9 10 3/uL RBC 3.76 10 6/uL HGB 9.3 g/dL HCT 30.4 % MCV 80.9 fL MCH 24.7 pg MCHC 30.6 g/dL RDW 16.2 % Platelet Count 236 10 3/cmm MPV 8.9 fL Neutrophils 2.41 10 3/uL Lymphocytes 0.8 10 3/uL Monocytes 0.5 10 3/uL Eosinophils 0.0 10 3/uL Basophils 0.0 10 3/uL Neutrophil % 61.3 % Lymphocyte % 21.4 % Monocyte % 11.7 % Eosinophil % 0.5 % Basophils % 1.0 % NRBC % 0 % Test performed on Sep 24, 2020 10:19 Manual Lymphocytes 13.1 % Manual Monocytes 6.0 % Manual Eosinophils 4.6 % Manual Basophils 0.6 % Test performed on Jun 26, 2020 10:25 CA 15-3 43.5 U/mL CA 19-9 15.05 U/mL Impression: Due to right-arm weakness, MRI scan of the brain done on August 26, 2020 showed 5.1 x 3.8 x 5.4 cm new mass in the left parietal area for which she underwent left parietal tumor resection on August 08, 2020 and final pathology report showed metastatic high-grade metaplastic carcinoma (carcinosarcoma) immunohistochemistry positive for CK7, GA TA 3, mammaglobin, vimentin Negative for CK20, CDX2, TTF-1, PAX 08. Ki-67 more than 50%, ER/CA negative, HER-2/angelia 2+ by IHC, negative by DARREN. Patient underwent fractionated radiosurgery at [facility], as per patient she received [address] scan of chest done on June 04, 2020 showed large right pleural effusion with compressive atelectasis in the right lower lobe mild right to left mass-effect on mediastinum. Numerous enhancing pleural-based nodules involving right pleura posteriorly along the right lower lobe and extending along the right hemidiaphragm. Enhancing pleural-based nodules throughout the right lung and extending along the anterior mediastinum suspicious for pleural-based metastatic disease. Left lung clear, no mediastinal or hilar lymphadenopathy. Mild diffuse fatty infiltration of liver. Recurrent right pleural effusion status post multiple thoracentesis finally thoracentesis done on July 01, 2020 showed immunohistochemical stain highlight rare tumor cells, metastatic carcinoma as immunohistochemistry stain positive for CK7, CK cocktail, CK Pradeep,Christophe-EP4, and negative for estrogen receptor,GCDFP Status post right modified radical mastectomy with right axillary lymph node dissection done on 01/15/2019 showed infiltrating ductal carcinoma tumor size 2.5 x 1.5 cm, T2 and 0/3 lymph node positive for metastatic disease e.g. and 0, DCIS component comprises 15% of tumor volume. Stage IIa Infiltrating ductal carcinoma of right breast status post ultrasound-guided biopsy done on 12/20/2018, final pathology report showed infiltrating ductal carcinoma grade 3, Ki-67 40%, unfavorable, estrogen receptor less than 1%, negative progesterone receptor less than 1%, negative HER-2/angelia 1+, negative for HER-2/angelia overexpression by IHC and over amplification by FISH. BRCA1/2 testing done 02/07/2019 , came back negative Status post left prophylactic mastectomy done on 10/08/2019 Started on dose dense chemotherapy with Adriamycin Cytoxan every 2 weeks ???4 on 02/19/2019, will be followed by weekly Taxol ???12. She tolerated A/C well. She was transitioned to weekly paclitaxel. After 6 dose of weekly Taxol, she was changed to weekly Abraxane due to persistent hyperglycemia due to steroids. completed on 08/05/2019 Chronic hip pain due to chronic arthritis involving bilateral hip as per MRI scan of pelvis done on done on 08/16/2019 showed no evidence of metastatic disease.Chronic right shoulder pain due to rotator cuff, off and on for last 15 years Plan: PROBLEMS ADDRESSED TODAY 1. Metastatic breast cancer A. She is currently undergoing chemotherapy with carboplatin gemcitabine pembrolizumab. She is due for cycle 2-day 8 treatment today. I will hold today's plan of treatment due to marginal performance status as well as new rash on her back and left axilla. She also continues to have suspicious right upper quadrant abdominal pain. B. Today's labs reviewed in detail and discussed with Mrs. Hoffman WBC 3.9, hemoglobin 9.3, platelets 236,000, ANC is 2410. Potassium 3.1 creatinine 0.5 random glucose 111. ALT is 151 AST is 75 alk phos is 131. C. Had previously requested a HIDA scan for evaluation of the right upper quadrant pain. This has not yet been performed for unknown reasons. We will rerequest this as she now has worsening pain and she has elevated LFTs. 2. Rash of unknown etiology A. We will have her use Elocon cream to the rash on her lower back as well as her left axilla. She states she can get assistance for applying it with her daughter. I did not want to do oral steroids with her due to intolerance in the past. 3. Brain metastasis A. As per patient she is scheduled for MRI scan of the brain by neurosurgery on December 07, 2020 patient does not want to travel and was requesting if it can be done here and send him report for evaluation, our clinic will contact neurosurgery at [facility] regarding follow-up MRI head. 4. Right upper quadrant discomfort/pain now with elevated LFTs A. Suspicious for gallbladder malfunction I have requested a HIDA scan and expected it to be done this week. If it is negative, she may need referral or GI specialist or repeat CT imaging. 5. As for generalized weakness and fatigue is concerned probably multifactorial including narcotics. 6. Bone metastasis as patient has increased uptake in T12 suggestive of osseous metastatic disease A. We will also consider Xgeva to prevent skeletal related complication. I did not initiate this today as she has had performance status decline and is having significant right upper quadrant pain. I feel her pain needs to be worked up and try to find the etiology of that before we proceed with any new agents. 7. Follow-up plan A. We have requested the HIDA scan and would really like to see results of it prior to proceeding with any further treatment is if she require surgery like for her counts remain stable. B. We will tentatively plan to see her back within a week to 2 at the most depending on what we can get results of her gallbladder scanning. C. Ms. Hoffman has been instructed to contact us in interim should questions or problems arise. Signed By: Mary Lama-, [facility] Laurita Hernández MD <<Signature on File>>
== END 2020-11-23 05:46 | disposition home or self-care (01) ==
PROVIDERS: PCP Family Medicine; Visit Provider Nurse Practitioner
DX: C50.411 Malignant neoplasm of upper-outer quadrant of right female breast (principal); C79.31 Secondary malignant neoplasm of brain; R93.7 Abnormal findings on diagnostic imaging of other parts of musculoskeletal system; R21 Rash and other nonspecific skin eruption; R10.11 Right upper quadrant pain; R79.89 Other specified abnormal findings of blood chemistry; R53.1 Weakness; R53.83 Other fatigue; M16.0 Bilateral primary osteoarthritis of hip; M25.511 Pain in right shoulder; Z17.1 Estrogen receptor negative status [ER-]; Z90.13 Acquired absence of bilateral breasts and nipples; Z79.899 Other long term (current) drug therapy
CPT/HCPCS: 36591; 80053; 85025; 99214

== ENCOUNTER 2020-11-24 07:20 | Outpatient (CLI) | payer OTHER, SELFPAY ==
--- NOTE | 2020-11-24 07:23 | NM_ITS ---
WS: [id number] NUCLEAR MEDICINE HIDA SCAN WITH GALLBLADDER EJECTION FRACTION HISTORY: RUQ PAIN AND ELEVATED LFT'S;MALIGNANT NEOPLASM UOQ BREAST. COMPARISON: None available. TECHNIQUE: The patient was intravenously injected with 7.8 mCi of TC99m Mebrofenin. Immediate imaging over the right upper quadrant was followed by 5 minute image and additional images for a total of 60 minutes. Mildly coarsened echotexture and uptake throughout the liver. The liver is enlarged. No delayed empty ing of the nuclide. Activity identified in the gallbladder at 40 minutes and is minimally distended by 60 minutes. Activity in the proximal small bowel was seen by 20 minutes. Good washout of the radiotracer from the liver by 60 minutes. The patient then drank 8 ounces of Ensure Plus. Ejection fraction at 60 minutes was 81%. Normal GB ej ection fraction is 35-75%. Post fatty meal symptoms: None. NM/NM hepatobiliary w phar* [id number] IMPRESSION: 1. No common bile duct or cystic duct obstruction. 2. Normal gallbladder ejection fraction. 3. Liver is enlarged and heterogeneous probably due to hepatic steatosis.
== END 2020-11-24 07:21 | disposition home or self-care (01) ==
LOC: RAD 07:21
PROVIDERS: PCP Family Medicine; Visit Provider Nurse Practitioner
DX: R10.11 Right upper quadrant pain (principal); R79.89 Other specified abnormal findings of blood chemistry; C50.411 Malignant neoplasm of upper-outer quadrant of right female breast; R16.0 Hepatomegaly, not elsewhere classified
CPT/HCPCS: 78227; A9537

== ENCOUNTER 2020-12-10 09:15 | Outpatient (CLI) | payer OTHER, SELFPAY ==
--- NOTE | 2020-12-10 09:32 | CT_ITS ---
WS: [id number] CT ABDOMEN AND PELVIS WITH CONTRAST HISTORY: RUQ PAIN AND ELEVATED LFT'S, METASTATIC BREAST CANCER TECHNIQUE: Imaging performed of the abdomen and pelvis with IV contrast. Single phase imaging of the abdomen. Coronal and sagittal reformats are submitted. All CT scans at [facility] use at least one of these dose optimization techniques: automated exposure control; mA and/or kV adjustment per patient size (includes targeted exams where dose is matched to clinical indication); or iterativ e reconstruction. IV CONTRAST: Omnipaque 300; 95 mL IV. Oral contrast: Yes. DLP: 1170.82 mGy-cm. COMPARISON: Prior PET/CT 10/03/2020 Lower thorax: Partially visualized volume loss in the RIGHT chest wall from mastectomy. Small RIGHT p leural effusion. Multiple nodules at the lung bases. Parenchymal nodules are bilateral and increased in size since 10/03/2020. The largest measures about 1.4 cm in diameter. There is dense pleural thicke esa with enhancement at the RIGHT lung base. At the medial RIGHT lung base is a large soft tissue ma ss measuring 6.1 x 2.8 cm. Additional cluster of metastatic implants or lymph nodes along the medial RIGHT lower lung field measures 4.3 x 2.5 cm. These findings were present on the prior PET/CT and pos itive. Heart size is normal. No significant hernia. Liver/biliary system: Normal size liver. Nodule in the RIGHT lobe of the liver was not seen on the PE T/CT. This mass in the posterior RIGHT lobe measures 1.8 cm. There is a additional abnormal soft tiss ue along the posterior surface of the RIGHT lobe of the liver along the diaphragmatic surface which i s probably metastatic site. This may be arising from the pleura or liver. No bile duct dilatation. Gallbladder: Normal. No gallstones or wall thickening. No pericholecystic fluid. Pancreas: Normal. Spleen: Normal spleen with granulomata. Adrenal glands: Normal. Right kidney: Normal. Left kidney: Normal. Aorta: Very mild atherosclerosis aorta. IVC: There is a filling defect within the lumen of the IVC extending over a length of 5.6 cm. Diamet er is 1.4 cm. The soft tissue thrombus extends to the bifurcation but does not extend into the bifurc ation. No LEFT iliac vein identified. This may be congenital as it was not present on the prior PET/C T either. Lymphadenopathy: None. Free fluid: None. GI tract: Moderate diffuse fecal retention. No obstruction. Abdominal wall: Unremarkable abdominal wall. No hernia. Pelvis: Small atrophic uterus. No free fluid or adenopathy. Bones: Diffuse osteopenia. Suspicious but indeterminate T12 metastatic site in the RIGHT lateral vert ebral body. CT/CT abdomen pelvis w con* [id number] IMPRESSION: 1. Progression in size and number bilateral lower lobe pulmonary nodules since 10/03/2020. 2. Pleural based metastatic implants at the RIGHT lung base have not improved. 3. 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 4. New metastatic lesion in the RIGHT lobe of the liver measuring 1.8 cm. 5. Highly suspicious for new T12 metastatic lesion. Notified Ana Laura Juan NP at 12/10/2020 11:32 AM.
[2020-12-10] MEDS: iohexol 300 mg/mL 50 mL Btl PO (09:46)
[2020-12-10] MEDS: iohexol 300 mg/mL 100 mL Btl IV (11:07)
== END 2020-12-10 09:16 | disposition home or self-care (01) ==
PROVIDERS: PCP Family Medicine; Visit Provider Nurse Practitioner
DX: R10.11 Right upper quadrant pain (principal); R94.5 Abnormal results of liver function studies; C50.411 Malignant neoplasm of upper-outer quadrant of right female breast; R91.8 Other nonspecific abnormal finding of lung field
CPT/HCPCS: 74177; Q9967

== ENCOUNTER 2020-12-24 06:16 | Outpatient (CLI) | payer OTHER, SELFPAY ==
[2020-12-24 09:58] LABS: Alanine Aminotransferase 86 U/L (0-33); Albumin Level 3.5 g/dL (3.5-5.2); Alkaline Phosphatase 117 IU/L (35-105); Aspartate Amino Transferase 31 U/L (0-32); Blood Urea Nitrogen 8 mg/dL (6-20); Calcium 8.7 mg/dL (8.5-10.5); Carbon Dioxide 28 mmol/L (22-29); Chloride 95 mmol/L (98-107); Globulin 3.4 g/dL (1.3-4.6); Glomerular Filtration Rate 127.6 mL/min (90-130); Glucose 100 mg/dL (65-115); Osmolality Calculated 276 mOsm/kg (285-295); Sodium 134 mmol/L (136-145); Total Bilirubin 0.2 mg/dL (0.15-1.2); Total Protein 6.9 g/dL (6.6-8.7)
[2020-12-24 10:30] LABS: Basophils % 0.3 %; Eosinophils # 0.3 10^3/uL (0.0-0.8); Eosinophils % 2.8 %; Hemoglobin 10.7 g/dL (11.5-15.3); Lymphocytes # 0.8 10^3/uL (0.8-4.8); Lymphocytes % 8.9 %; Mean Corpuscular HGB Conc 29.7 g/dL (30.0-36.0); Mean Corpuscular Hemoglobin 24.4 pg (28.0-34.0); Monocytes # 0.7 10^3/uL (0.2-0.9); Monocytes % 7.2 %; Neutrophils % 80.4 %; Nucleated Red Blood Cells % 0 %; Platelet Count 295 10^3/cmm (130-400); Red Blood Count 4.39 10^6/uL (4.1-5.3); Red Cell Distribution Width 17.7 % (12.1-15.1); White Blood Count 9.5 10^3/uL (4.0-10.0)
--- NOTE | 2020-12-24 11:49 | ONC FU_ITS ---
Dr. Hernández follow up note Patient: Agatha Hoffman Unit #: [id number]: 1965 Dicatated By: Laurita Hernández M.D.Date of Visit:Dec 24, 2020 Onc Med Follow-up/Prog Note History of Present Illness: Ms. Hoffman is a 55-year-old female with long-standing history of right breast lump. She underwent right breast biopsy about 6 years ago, at that time she was told it was a benign. Recently she noticed pain and discomfort in her right breast so underwent bilateral mammogram on 12/05/2018. 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 BRCA 1/2 came back negative Patient denied any nipple discharge patient denies any nipple retraction, but complaining of discomfort in her right breast, denies any right axillary fullness, denies any trauma to her breast. She also denied any bony pain. History of back pain due to back injury about 15 years ago and intolerance to NSAIDs because of persistent severe nausea vomiting. Ms Hoffman underwent right modified radical mastectomy with right axilla lymph node dissection On 01/15/2019. The final pathology report showed 2.5 x 1.5 cm infiltrating ductal carcinoma, 0 out of 3 lymph nodes showed metastatic disease. Echocardiogram done on 02/07/2019 showed a Ejection fraction 77.3% Ms Hoffman started on adjuvant chemotherapy with dose dense Adriamycin Cytoxan With Neulasta support (to prevent chemotherapy-induced neutropenia) on 02/19/2019. s/p 4 doses of Adriamycin Cytoxan. She was transitioned to weekly paclitaxel on 04/29/2019. She had issues with hyperglycemia due to steroids; so on 06/10/2019 paclitaxel was switched to Abraxane for the remaining 6 doses of her planned therapy and completed on 08/05/2019 On 05/31/2019 she developed painful, clear fluid filled blisters on her mid upper back area. She went to emergency room where she was given acyclovir for shingles- now resolved. On 06/16/2019 she was admitted to hospital with not feeling well, fever of with yellowish phlegm and was treated as inpatient with IV antibiotics and felt better. She had some residual neuropathy but states it is no worse than what it has been. worsening bilateral hip pain and lower back pain . She states is been there forever and is chronic. She is also having worsening knee pain but states that hips are worse. She is had no recent trauma or falls. She states the pain just seems to be more persistent and does not let up. She does try Tylenol and Aleve. She states she is taken hydrocodone in the past with good relief. At least allowed her to get her activities of daily living accomplished in a timely manner. For which she underwent MRI scan of the pelvis on 08/16/2019 which showed no evidence of metastatic disease, moderate degenerative arthritis both hips. No sacral fracture and no bony metastases. She is also having some vision changes and that she is having wavy vision which she states is happened in the past with an aura before she had a migraine headache.For which she underwent MRI scan of the head on 08/16/2019 which showed no evidence of metastatic disease. Echocardiogram done on 08/05/2019 showed ejection fraction 65% off and on right shoulder pain, for the last 15 years, now progressive, as per patient, in the past she was told pain is due to problem with her rotator cuff and now pain is becoming bothersome. Cannot take Motrin the cause of intolerance so trying Tylenol with some help.-For which she underwent MRI scan of the C-spine on October 06, 2019 which showed central disc osteophyte protrusion at C5-C6 also had MRI scan of right shoulder done on January 03, 2020 which showed moderate degenerative arthritis at the AC joint with a mild edema and mild downsloping of acromion with subacromial spurring. Chronic tenting of supraspinatus and tiny intrasubstance tear distally. Patient was given steroid injection in the right shoulder with that her pain improved significantly. Patient recently underwent prophylactic left mastectomy on 10/08/2019. progressive shortness of breath and right lower chest pain and cough, as per patient about 2 months ago, she fell in her porch and injured her left knee torn ACL and her leg was immobilized for 6 weeks and then to reevaluate for surgical options. Patient said on April 04, 2020 she started experience shortness of breath, no fever, no hemoptysis no hematemesis she thought it was due to allergies as she has many cats and went to see her PMD who gave her Claritin, without much help then he was switched to Zyrtec her shortness of breath continue worse eventually she had a chest x-ray done which showed right pleural effusion subsequently underwent CT scan of chest on June 04, 2020 which showed large right pleural effusion with compressive atelectasis in the right lower lobe mild right to left mass-effect on the mediastinum. Numerous enhancing pleural-based nodules involving the right pleura posteriorly along the right lower lobe and extending along the right hemidiaphragm. Enhancing pleural-based nodules throughout the right lung and extending along the anterior mediastinum suspicious for pleural-based metastatic disease. Left lung clear no mediastinal or hilar lymphadenopathy, mild diffuse fatty infiltration of the liver .Patient was referred to pulmonology for evaluation on June 05, 2020 patient underwent right thoracentesis and about 2 L of bloody fluid was removed and patient felt better immediately and fluid was sent for cytology which came back as negative for malignancy, Repeat right thoracentesis done on July 01, 2020 and the cytology came back rare tumor cell, metastatic carcinoma, chronic inflammation with reactive mesothelial cell and immunohistochemistry positive for CK7, CK cocktail, CK Pradeep,Christophe-EP4, and negative for GCDFP, estrogen receptor CT PET scan done on July 18, 2020 showed a right retropectoral node measuring 2.3 x 1.2 cm has SUV of 10.9. Within the right hemithorax there are multiple pleural-based nodules with FDG uptake consistent with recurrent malignancy, as well as previously described large effusion. Nodules are more prominent dependently, with index nodule at the anterior medial right middle lobe adherent to the mediastinum measuring 2.1 x 2.0 cm with SUV of 14.2 and other lesions have SUV up to 18.1. Activity in the subcentimeter celiac node and abdomen has SUV of 3.7 highly suspicious for malignancy Patient underwent MRI scan of brain on July 27, 2020 showed heterogeneously enhancing lesion measuring 5.1 x 3.8 x 5.4 cm with moderate surrounding edema with partial effacement of posterior horn of left lateral ventricle, left to right midline shift measuring 6 mm, underwent left parietal tumor resection on August 08, 2020 at [place], final pathology report reported in medical record as metastatic high-grade metaplastic carcinoma (carcinosarcoma), consistent with breast primary immunohistochemistry positive for CK7, ALVIN 3, mammaglobin and vimentin. Negative for CK20, CDX, TTF-1, PAX 08, Ki-67 more than 50%, ER/TN positive HER-2/angelia 2+ by IHC, negative by DARREN Ms Hoffman was evaluated by Dr. Chavez, Medical oncologist at [facility] on August 24, 2020 and she was recommended carboplatin/gemcitabine/pembrolizumab and guardant 360 for somatic mutation was ordered in peripheral blood Ms Hoffman reports she was had been getting repeated right thoracentesis at [facility] and last time was mid September 2020. She states it was about 200 cc and she was told that it could be due to adhesions and pockets formation. Mrs. Hoffman underwent PET CT imaging on October 03, 2020. Comparison was made to 07/18/2020 imaging the right retropectoral node that previously measured 2.3 x 1.2 cm with an SUV of 10.9 was slightly progressed on the September 2020 study. It was measuring 2.8 x 1.5 cm with an SUV of 9.8. The index nodule at the anterior medial right middle lobe adherent to the mediastinum that previously measured 2.1 x 2.0 cm with an SUV of 14.2 measured 2.5 cm in diameter with an SUV of 9.1, indeterminate for progression or response. However there was a new central node measuring 1.7 x 1.9 cm with an SUV of 7.1. The right effusion had improved in volume and multiple other pleural implants are comparable to the previous study. Suspicious celiac upper abdominal node is stable with an SUV of 3.5. A new site of abnormal activity in the right aspect of the T12 vertebral body has an SUV of 9.9 consistent with new osseous metastatic disease. Mrs. Hoffman was offered further chemotherapy with carboplatin gemcitabine and pembrolizumab. She began her first cycle on October 26, 2020. .Came for follow-up, complaining of persistent right upper quadrant/right lower chest pain not being sufficiently controlled with long-acting morphine and breakthrough meds patient underwent extensive work-up as an initial concern was whether this is due to gallbladder pathology which was ruled out and then patient was found to have IVC thrombus for which she is on anticoagulation and her CT scan of chest done recently showed extensive disease in the right lower lung., Her chemotherapy has been postponed since November 16, 2020 because of evaluation of persistent right lower chest/right upper quadrant pain Medications: Acetaminophen 1 Tablet (of 500 mg) Oral PRN, Acetaminophen-Codeine #3 Tablet Oral, Albuterol Sulfate 1 - 2 Puff(s) (of 108 (90 base) mcg/act) Aerosol Powder, Breath Activated Inhalation q 4 hours PRN, Apixaban 1 Tablet (of 5 mg) Oral b.i.d., Cetirizine HCl 1 Tablet (of 10 mg) Oral daily, LORazepam 0.5 - 1 Tablet (of 1 mg) Oral t.i.d. PRN, Morphine Sulfate ER 1 Tablet (of 30 mg) Tablet, controlled release Oral q 12 hours, NexIUM 1 Capsule (of 20 mg) Capsule Delayed Release Oral daily Allergies: Ibuprofen and NSAIDs. Review of Systems: Review of Systems is not available for this patient. Vital Signs: Performed on Dec 24, 2020 11:11 Height - 69.00 in Weight - 218.4 lbs (LOW) BSA - 2.14 sq.m BMI - 32.25 (HIGH) Temperature - 98.6 F Pulse - 108 /min (HIGH) Respiration - 18 /min BP - 139/82 mm(hg) O2 Sat - 95 % (LOW) Pain - 3 Performance Status: 2 - Ambulatory/capable of all self-care, unable to perform any work activities. Up and about more than 50% of waking hours. (ECOG) Physical Examination: Respiratory - Decreased breath sound at the base, poor air entry otherwise clear, Cardiovascular - Regular rate and rhythm of heart, Gastrointestinal - Soft, bowel sounds present mild tenderness in right upper quadrant and right lower chest but no overlying skin changes, Extremities - 1+ edema bilaterally, dry skin. Lab/Imaging: Test performed on Dec 24, 2020 11:41 Creatinine 0.5 mg/dL Cr Clearance (Est) 210.70 mL/min Test performed on Dec 24, 2020 10:20 WBC 9.5 10 3/uL RBC 4.39 10 6/uL HGB 10.7 g/dL HCT 36.0 % MCV 82.0 fL MCH 24.4 pg MCHC 29.7 g/dL RDW 17.7 % Platelet Count 295 10 3/cmm MPV 9.0 fL Neutrophils 7.60 10 3/uL Lymphocytes 0.8 10 3/uL Monocytes 0.7 10 3/uL Eosinophils 0.3 10 3/uL Basophils 0.0 10 3/uL Neutrophil % 80.4 % Lymphocyte % 8.9 % Monocyte % 7.2 % Eosinophil % 2.8 % Basophils % 0.3 % NRBC % 0 % Test performed on Nov 23, 2020 08:40 Sodium 137 mmol/L Potassium 4.1 mmol/L Chloride 97 mmol/L CO2 29 mmol/L Anion Gap 15.1 BUN 8 mg/dL eGFR 127.6 mL/min Glucose 111 mg/dL Osmolality - Calculated 283 mOsm/kg Calcium 9.3 mg/dL Protein, Total 7.1 g/dL Albumin 3.5 g/dL Globulin 3.6 g/dL Bilirubin, Total 0.3 mg/dL ALT (SGPT) 151 U/L AST (SGOT) 75 U/L Alkaline Phosphatase 131 IU/L Test performed on Sep 24, 2020 10:19 Manual Lymphocytes 13.1 % Manual Monocytes 6.0 % Manual Eosinophils 4.6 % Manual Basophils 0.6 % Impression: Due to right-arm weakness, MRI scan of the brain done on August 26, 2020 showed 5.1 x 3.8 x 5.4 cm new mass in the left parietal area for which she underwent left parietal tumor resection on August 08, 2020 and final pathology report showed metastatic high-grade metaplastic carcinoma (carcinosarcoma) immunohistochemistry positive for CK7, GA TA 3, mammaglobin, vimentin Negative for CK20, CDX2, TTF-1, PAX 08. Ki-67 more than 50%, ER/TN negative, HER-2/angelia 2+ by IHC, negative by DARREN. Patient underwent fractionated radiosurgery at [facility], as per patient she received [address] scan of chest done on June 04, 2020 showed large right pleural effusion with compressive atelectasis in the right lower lobe mild right to left mass-effect on mediastinum. Numerous enhancing pleural-based nodules involving right pleura posteriorly along the right lower lobe and extending along the right hemidiaphragm. Enhancing pleural-based nodules throughout the right lung and extending along the anterior mediastinum suspicious for pleural-based metastatic disease. Left lung clear, no mediastinal or hilar lymphadenopathy. Mild diffuse fatty infiltration of liver. Recurrent right pleural effusion status post multiple thoracentesis finally thoracentesis done on July 01, 2020 showed immunohistochemical stain highlight rare tumor cells, metastatic carcinoma as immunohistochemistry stain positive for CK7, CK cocktail, CK Pradeep,Christophe-EP4, and negative for estrogen receptor,GCDFP Status post right modified radical mastectomy with right axillary lymph node dissection done on 01/15/2019 showed infiltrating ductal carcinoma tumor size 2.5 x 1.5 cm, T2 and 0/3 lymph node positive for metastatic disease e.g. and 0, DCIS component comprises 15% of tumor volume. Stage IIa Infiltrating ductal carcinoma of right breast status post ultrasound-guided biopsy done on 12/20/2018, final pathology report showed infiltrating ductal carcinoma grade 3, Ki-67 40%, unfavorable, estrogen receptor less than 1%, negative progesterone receptor less than 1%, negative HER-2/angelia 1+, negative for HER-2/angelia overexpression by IHC and over amplification by FISH. BRCA1/2 testing done 02/07/2019 , came back negative Status post left prophylactic mastectomy done on 10/08/2019 Started on dose dense chemotherapy with Adriamycin Cytoxan every 2 weeks ???4 on 02/19/2019, will be followed by weekly Taxol ???12. She tolerated A/C well. She was transitioned to weekly paclitaxel. After 6 dose of weekly Taxol, she was changed to weekly Abraxane due to persistent hyperglycemia due to steroids. completed on 08/05/2019 Chronic hip pain due to chronic arthritis involving bilateral hip as per MRI scan of pelvis done on done on 08/16/2019 showed no evidence of metastatic disease.Chronic right shoulder pain due to rotator cuff, off and on for last 15 years Plan: Discussed with patient regarding her labs white blood count 9.5 hemoglobin 10.7 hematocrit 36 platelets 295,000 CMP within normal limits Clinically patient doing reasonably well but in mild to moderate distress due to persistent right lower chest/right upper quadrant pain, which could be due to extensive right lower lung involvement infiltrating into the pleura or ribs. As per patient, her pain is not sufficiently controlled with current pain medication so we will increase her long-acting morphine to 45 mg p.o. every 12 hours from 30 mg twice a day and also continue with the breakthrough and if needed will titrate up further, in the meantime we will discuss with radiation oncology for evaluation regarding role of palliative radiation therapy to the right anterior lower chest area. In the meantime we will proceed with next cycle of chemotherapy with Keytruda/gemcitabine/carboplatin and then she will return to clinic in 1 week with CBC CMP and if reasonable, for day 8 carboplatin/gemcitabine Signed By: Laurita Hernández M.D. <<Signature on File>>
[2020-12-24] MEDS: palonosetron 0.25 mg/5 mL SDV IVP (12:23)
[2020-12-24] MEDS: sodium chloride 0.9% 250 ML 30 ML IV (12:23)
[2020-12-24] MEDS: denosumab 120 mg SDV SUBCUT (12:24)
== END 2020-12-24 06:17 | disposition home or self-care (01) ==
PROVIDERS: PCP Family Medicine; Visit Provider Internal Medicine Hematology & Oncology
DX: Z51.12 Encounter for antineoplastic immunotherapy (principal); Z51.11 Encounter for antineoplastic chemotherapy; C50.411 Malignant neoplasm of upper-outer quadrant of right female breast; Z17.1 Estrogen receptor negative status [ER-]; J90 Pleural effusion, not elsewhere classified; J98.11 Atelectasis; M16.0 Bilateral primary osteoarthritis of hip; Z79.899 Other long term (current) drug therapy
CPT/HCPCS: 80053; 85025; 96367; 96372; 96375; 96413; 96417; 99215; J0897; J1100; J2469; J7040; J7050; J9045; J9201; J9271

== ENCOUNTER 2020-12-30 07:19 | Outpatient (CLI) | payer OTHER, SELFPAY ==
[2020-12-30 12:15] LABS: Basophils % 0.7 %; Eosinophils % 2.7 %; Hematocrit 32.7 % (37.0-47.0); Hemoglobin 9.7 g/dL (11.5-15.3); Lymphocytes # 0.5 10^3/uL (0.8-4.8); Lymphocytes % 36.1 %; Mean Corpuscular HGB Conc 29.7 g/dL (30.0-36.0); Mean Corpuscular Hemoglobin 24.1 pg (28.0-34.0); Mean Corpuscular Volume 81.1 fL (81-99); Monocytes # 0.1 10^3/uL (0.2-0.9); Monocytes % 5.4 %; Neutrophils % 55.1 %; Nucleated Red Blood Cells % 0 %; Platelet Count 180 10^3/cmm (130-400); Red Blood Count 4.03 10^6/uL (4.1-5.3); Red Cell Distribution Width 17.4 % (12.1-15.1); White Blood Count 1.5 10^3/uL (4.0-10.0)
[2020-12-30 12:41] LABS: Alanine Aminotransferase 213 U/L (0-33); Albumin Level 3.3 g/dL (3.5-5.2); Alkaline Phosphatase 134 IU/L (35-105); Aspartate Amino Transferase 98 U/L (0-32); Blood Urea Nitrogen 8 mg/dL (6-20); Calcium 8.2 mg/dL (8.5-10.5); Carbon Dioxide 28 mmol/L (22-29); Chloride 98 mmol/L (98-107); Globulin 3.5 g/dL (1.3-4.6); Glomerular Filtration Rate 165.1 mL/min (90-130); Glucose 148 mg/dL (65-115); Osmolality Calculated 279 mOsm/kg (285-295); Sodium 134 mmol/L (136-145); Total Bilirubin 0.2 mg/dL (0.15-1.2); Total Protein 6.8 g/dL (6.6-8.7)
[2020-12-30 12:49] LABS: Neutrophils # 0.81 10^3/uL (1.8-7.7); Slide Review Slide Review Perform
== END 2020-12-30 07:20 | disposition home or self-care (01) ==
LOC: ONCMED 07:21
PROVIDERS: PCP Family Medicine; Visit Provider Internal Medicine Hematology & Oncology
DX: C50.411 Malignant neoplasm of upper-outer quadrant of right female breast (principal); Z17.1 Estrogen receptor negative status [ER-]
CPT/HCPCS: 36591; 80053; 85025

== ENCOUNTER 2021-01-01 06:12 | Outpatient (RCR) | payer OTHER, SELFPAY | END 2021-01-01 23:59 | disposition home or self-care (01) | LOC: ONCMED 06:12 | PROVIDERS: PCP Family Medicine; Visit Provider Nurse Practitioner | DX: C50.411 Malignant neoplasm of upper-outer quadrant of right female breast (principal); Z17.1 Estrogen receptor negative status [ER-] | CPT/HCPCS: 96372; Q5101 ==

== ENCOUNTER → 2021-01-02 13:07 | Day surgery (SDC) | payer OTHER, SELFPAY ==
[2021-01-02 13:24] VITALS: BP 112/76; PULSE 100; RESP 16; TEMP 36.1; O2SAT 98
== END ==
PROVIDERS: PCP Family Medicine; Visit Provider Internal Medicine Medical Oncology
DX: C50.411 Malignant neoplasm of upper-outer quadrant of right female breast (principal); Z17.1 Estrogen receptor negative status [ER-]
CPT/HCPCS: 96372; J1442

== ENCOUNTER 2021-01-22 05:35 | Outpatient (RCR) | payer OTHER, SELFPAY ==
[2021-01-04 14:10] LABS: Basophils # 0.1 10^3/uL (0.0-0.1); Basophils % 1.2 %; Eosinophils # 0.1 10^3/uL (0.0-0.8); Eosinophils % 1.7 %; Hemoglobin 10.5 g/dL (11.5-15.3); Lymphocytes # 1.1 10^3/uL (0.8-4.8); Mean Corpuscular HGB Conc 29.2 g/dL (30.0-36.0); Mean Corpuscular Volume 82.2 fL (81-99); Mean Platelet Volume 9.5 fL (7.4-10.4); Monocytes # 1.2 10^3/uL (0.2-0.9); Monocytes % 16.6 %; Neutrophils # 4.24 10^3/uL (1.8-7.7); Neutrophils % 56.8 %; Nucleated Red Blood Cells % 0.3 %; Platelet Count 129 10^3/cmm (130-400); Red Blood Count 4.38 10^6/uL (4.1-5.3); Red Cell Distribution Width 19.5 % (12.1-15.1); White Blood Count 7.5 10^3/uL (4.0-10.0)
[2021-01-04 14:40] LABS: Slide Review Slide Review Perform
[2021-01-06 09:58] LABS: Alanine Aminotransferase 137 U/L (0-33); Albumin Level 3.7 g/dL (3.5-5.2); Alkaline Phosphatase 183 IU/L (35-105); Anion Gap 13.2 (5-19); Aspartate Amino Transferase 60 U/L (0-32); Blood Urea Nitrogen 8 mg/dL (6-20); Calcium 8.6 mg/dL (8.5-10.5); Carbon Dioxide 27 mmol/L (22-29); Chloride 97 mmol/L (98-107); Globulin 3.4 g/dL (1.3-4.6); Glomerular Filtration Rate 127.6 mL/min (90-130); Glucose 127 mg/dL (65-115); Osmolality Calculated 276 mOsm/kg (285-295); Potassium 4.2 mmol/L (3.5-5.1); Sodium 133 mmol/L (136-145); Total Bilirubin 0.2 mg/dL (0.15-1.2); Total Protein 7.1 g/dL (6.6-8.7)
[2021-01-06] MEDS: sodium chloride 0.9% 250 ML 75 ML IV (10:58)
[2021-01-06] MEDS: palonosetron 0.25 mg/5 mL SDV IV (10:58)
--- NOTE | 2021-01-06 13:00 | ONC FU_ITS ---
Dr. Hernández follow up note Patient: Agatha Hoffman Unit #: [id number]: [id number] Dicatated By: Laurita Hernández M.D.Date of Visit:January 06, 2021 Onc Med Follow-up/Prog Note History of Present Illness: Ms. Hoffman is a 55-year-old female with long-standing history of right breast lump. She underwent right breast biopsy about 6 years ago, at that time she was told it was a benign. Recently she noticed pain and discomfort in her right breast so underwent bilateral mammogram on 12/05/2018. 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 BRCA 1/2 came back negative Patient denied any nipple discharge patient denies any nipple retraction, but complaining of discomfort in her right breast, denies any right axillary fullness, denies any trauma to her breast. She also denied any bony pain. History of back pain due to back injury about 15 years ago and intolerance to NSAIDs because of persistent severe nausea vomiting. Ms Hoffman underwent right modified radical mastectomy with right axilla lymph node dissection On 01/15/2019. The final pathology report showed 2.5 x 1.5 cm infiltrating ductal carcinoma, 0 out of 3 lymph nodes showed metastatic disease. Echocardiogram done on 02/07/2019 showed a Ejection fraction 77.3% Ms Hoffman started on adjuvant chemotherapy with dose dense Adriamycin Cytoxan With Neulasta support (to prevent chemotherapy-induced neutropenia) on 02/19/2019. s/p 4 doses of Adriamycin Cytoxan. She was transitioned to weekly paclitaxel on 04/29/2019. She had issues with hyperglycemia due to steroids; so on 06/10/2019 paclitaxel was switched to Abraxane for the remaining 6 doses of her planned therapy and completed on 08/05/2019 On 05/31/2019 she developed painful, clear fluid filled blisters on her mid upper back area. She went to emergency room where she was given acyclovir for shingles- now resolved. On 06/16/2019 she was admitted to hospital with not feeling well, fever of with yellowish phlegm and was treated as inpatient with IV antibiotics and felt better. She had some residual neuropathy but states it is no worse than what it has been. worsening bilateral hip pain and lower back pain . She states is been there forever and is chronic. She is also having worsening knee pain but states that hips are worse. She is had no recent trauma or falls. She states the pain just seems to be more persistent and does not let up. She does try Tylenol and Aleve. She states she is taken hydrocodone in the past with good relief. At least allowed her to get her activities of daily living accomplished in a timely manner. For which she underwent MRI scan of the pelvis on 08/16/2019 which showed no evidence of metastatic disease, moderate degenerative arthritis both hips. No sacral fracture and no bony metastases. She is also having some vision changes and that she is having wavy vision which she states is happened in the past with an aura before she had a migraine headache.For which she underwent MRI scan of the head on 08/16/2019 which showed no evidence of metastatic disease. Echocardiogram done on 08/05/2019 showed ejection fraction 65% off and on right shoulder pain, for the last 15 years, now progressive, as per patient, in the past she was told pain is due to problem with her rotator cuff and now pain is becoming bothersome. Cannot take Motrin the cause of intolerance so trying Tylenol with some help.-For which she underwent MRI scan of the C-spine on October 06, 2019 which showed central disc osteophyte protrusion at C5-C6 also had MRI scan of right shoulder done on January 03, 2020 which showed moderate degenerative arthritis at the AC joint with a mild edema and mild downsloping of acromion with subacromial spurring. Chronic tenting of supraspinatus and tiny intrasubstance tear distally. Patient was given steroid injection in the right shoulder with that her pain improved significantly. Patient recently underwent prophylactic left mastectomy on 10/08/2019. progressive shortness of breath and right lower chest pain and cough, as per patient about 2 months ago, she fell in her porch and injured her left knee torn ACL and her leg was immobilized for 6 weeks and then to reevaluate for surgical options. Patient said on April 04, 2020 she started experience shortness of breath, no fever, no hemoptysis no hematemesis she thought it was due to allergies as she has many cats and went to see her PMD who gave her Claritin, without much help then he was switched to Zyrtec her shortness of breath continue worse eventually she had a chest x-ray done which showed right pleural effusion subsequently underwent CT scan of chest on June 04, 2020 which showed large right pleural effusion with compressive atelectasis in the right lower lobe mild right to left mass-effect on the mediastinum. Numerous enhancing pleural-based nodules involving the right pleura posteriorly along the right lower lobe and extending along the right hemidiaphragm. Enhancing pleural-based nodules throughout the right lung and extending along the anterior mediastinum suspicious for pleural-based metastatic disease. Left lung clear no mediastinal or hilar lymphadenopathy, mild diffuse fatty infiltration of the liver .Patient was referred to pulmonology for evaluation on June 05, 2020 patient underwent right thoracentesis and about 2 L of bloody fluid was removed and patient felt better immediately and fluid was sent for cytology which came back as negative for malignancy, Repeat right thoracentesis done on July 01, 2020 and the cytology came back rare tumor cell, metastatic carcinoma, chronic inflammation with reactive mesothelial cell and immunohistochemistry positive for CK7, CK cocktail, CK Pradeep,Christophe-EP4, and negative for GCDFP, estrogen receptor CT PET scan done on July 18, 2020 showed a right retropectoral node measuring 2.3 x 1.2 cm has SUV of 10.9. Within the right hemithorax there are multiple pleural-based nodules with FDG uptake consistent with recurrent malignancy, as well as previously described large effusion. Nodules are more prominent dependently, with index nodule at the anterior medial right middle lobe adherent to the mediastinum measuring 2.1 x 2.0 cm with SUV of 14.2 and other lesions have SUV up to 18.1. Activity in the subcentimeter celiac node and abdomen has SUV of 3.7 highly suspicious for malignancy Patient underwent MRI scan of brain on July 27, 2020 showed heterogeneously enhancing lesion measuring 5.1 x 3.8 x 5.4 cm with moderate surrounding edema with partial effacement of posterior horn of left lateral ventricle, left to right midline shift measuring 6 mm, underwent left parietal tumor resection on August 08, 2020 at [facility], final pathology report reported in medical record as metastatic high-grade metaplastic carcinoma (carcinosarcoma), consistent with breast primary immunohistochemistry positive for CK7, ALVIN 3, mammaglobin and vimentin. Negative for CK20, CDX, TTF-1, PAX 08, Ki-67 more than 50%, ER/LA positive HER-2/angelia 2+ by IHC, negative by DARREN Ms Hoffman was evaluated by Dr. Chavez, Medical oncologist at [facility] on August 24, 2020 and she was recommended carboplatin/gemcitabine/pembrolizumab and guardant 360 for somatic mutation was ordered in peripheral blood Ms Hoffman reports she was had been getting repeated right thoracentesis at [facility] and last time was mid September 2020. She states it was about 200 cc and she was told that it could be due to adhesions and pockets formation. Mrs. Hoffman underwent PET CT imaging on October 03, 2020. Comparison was made to 07/18/2020 imaging the right retropectoral node that previously measured 2.3 x 1.2 cm with an SUV of 10.9 was slightly progressed on the September 2020 study. It was measuring 2.8 x 1.5 cm with an SUV of 9.8. The index nodule at the anterior medial right middle lobe adherent to the mediastinum that previously measured 2.1 x 2.0 cm with an SUV of 14.2 measured 2.5 cm in diameter with an SUV of 9.1, indeterminate for progression or response. However there was a new central node measuring 1.7 x 1.9 cm with an SUV of 7.1. The right effusion had improved in volume and multiple other pleural implants are comparable to the previous study. Suspicious celiac upper abdominal node is stable with an SUV of 3.5. A new site of abnormal activity in the right aspect of the T12 vertebral body has an SUV of 9.9 consistent with new osseous metastatic disease. Mrs. Hoffman was offered further chemotherapy with carboplatin gemcitabine and pembrolizumab. She began her first cycle on October 26, 2020. Came for follow-up, complaining of right lower chest/upper quadrant pain not being controlled sufficiently with current pain medication otherwise no fever chills, no nausea or vomiting, no diarrhea constipation, no hemoptysis or hematemesis tolerating palliative chemotherapy with carbo/gemcitabine/pembrolizumab well Medications: Acetaminophen 1 Tablet (of 500 mg) Oral PRN, Acetaminophen-Codeine #3 Tablet Oral, Albuterol Sulfate 1 - 2 Puff(s) (of 108 (90 base) mcg/act) Aerosol Powder, Breath Activated Inhalation q 4 hours PRN, Apixaban 1 Tablet (of 5 mg) Oral b.i.d., Cetirizine HCl 1 Tablet (of 10 mg) Oral daily, LORazepam 0.5 - 1 Tablet (of 1 mg) Oral t.i.d. PRN, Morphine Sulfate ER 1 Tablet (of 30 mg) Tablet, controlled release Oral q 12 hours, NexIUM 1 Capsule (of 20 mg) Capsule Delayed Release Oral daily Allergies: Ibuprofen and NSAIDs. Review of Systems: Review of Systems is not available for this patient. Vital Signs: Performed on January 06, 2021 09:15 Height - 69.00 in Temperature - 96.2 F (LOW) Pulse - 110 /min (HIGH) Respiration - 16 /min BP - 124/84 mm(hg) O2 Sat - 99 % Pain - 4 Fatigue - 4 Performance Status: 2 - Ambulatory/capable of all self-care, unable to perform any work activities. Up and about more than 50% of waking hours. (ECOG) Physical Examination: Respiratory - Decreased breath sound right base otherwise clear, Cardiovascular - Regular rate and rhythm of heart, Gastrointestinal - Soft, bowel sounds present, Extremities - No visible edema. Lab/Imaging: Test performed on January 06, 2021 10:04 Creatinine 0.5 mg/dL Cr Clearance (Est) 210.70 mL/min Test performed on Dec 24, 2020 10:20 WBC 9.5 10 3/uL RBC 4.39 10 6/uL HGB 10.7 g/dL HCT 36.0 % MCV 82.0 fL MCH 24.4 pg MCHC 29.7 g/dL RDW 17.7 % Platelet Count 295 10 3/cmm MPV 9.0 fL Neutrophils 7.60 10 3/uL Lymphocytes 0.8 10 3/uL Monocytes 0.7 10 3/uL Eosinophils 0.3 10 3/uL Basophils 0.0 10 3/uL Neutrophil % 80.4 % Lymphocyte % 8.9 % Monocyte % 7.2 % Eosinophil % 2.8 % Basophils % 0.3 % NRBC % 0 % Test performed on Nov 23, 2020 08:40 Sodium 137 mmol/L Potassium 4.1 mmol/L Chloride 97 mmol/L CO2 29 mmol/L Anion Gap 15.1 BUN 8 mg/dL eGFR 127.6 mL/min Glucose 111 mg/dL Osmolality - Calculated 283 mOsm/kg Calcium 9.3 mg/dL Protein, Total 7.1 g/dL Albumin 3.5 g/dL Globulin 3.6 g/dL Bilirubin, Total 0.3 mg/dL ALT (SGPT) 151 U/L AST (SGOT) 75 U/L Alkaline Phosphatase 131 IU/L Test performed on Sep 24, 2020 10:19 Manual Lymphocytes 13.1 % Manual Monocytes 6.0 % Manual Eosinophils 4.6 % Manual Basophils 0.6 % Impression: Due to right-arm weakness, MRI scan of the brain done on August 26, 2020 showed 5.1 x 3.8 x 5.4 cm new mass in the left parietal area for which she underwent left parietal tumor resection on August 08, 2020 and final pathology report showed metastatic high-grade metaplastic carcinoma (carcinosarcoma) immunohistochemistry positive for CK7, GA TA 3, mammaglobin, vimentin Negative for CK20, CDX2, TTF-1, PAX 08. Ki-67 more than 50%, ER/LA negative, HER-2/angelia 2+ by IHC, negative by DARREN. Patient underwent fractionated radiosurgery at [facility], as per patient she received [address] scan of chest done on June 04, 2020 showed large right pleural effusion with compressive atelectasis in the right lower lobe mild right to left mass-effect on mediastinum. Numerous enhancing pleural-based nodules involving right pleura posteriorly along the right lower lobe and extending along the right hemidiaphragm. Enhancing pleural-based nodules throughout the right lung and extending along the anterior mediastinum suspicious for pleural-based metastatic disease. Left lung clear, no mediastinal or hilar lymphadenopathy. Mild diffuse fatty infiltration of liver. Recurrent right pleural effusion status post multiple thoracentesis finally thoracentesis done on July 01, 2020 showed immunohistochemical stain highlight rare tumor cells, metastatic carcinoma as immunohistochemistry stain positive for CK7, CK cocktail, CK Pradeep,Christophe-EP4, and negative for estrogen receptor,GCDFP Status post right modified radical mastectomy with right axillary lymph node dissection done on 01/15/2019 showed infiltrating ductal carcinoma tumor size 2.5 x 1.5 cm, T2 and 0/3 lymph node positive for metastatic disease e.g. and 0, DCIS component comprises 15% of tumor volume. Stage IIa Infiltrating ductal carcinoma of right breast status post ultrasound-guided biopsy done on 12/20/2018, final pathology report showed infiltrating ductal carcinoma grade 3, Ki-67 40%, unfavorable, estrogen receptor less than 1%, negative progesterone receptor less than 1%, negative HER-2/angelia 1+, negative for HER-2/angelia overexpression by IHC and over amplification by FISH. BRCA1/2 testing done 02/07/2019 , came back negative Status post left prophylactic mastectomy done on 10/08/2019 Started on dose dense chemotherapy with Adriamycin Cytoxan every 2 weeks ???4 on 02/19/2019, will be followed by weekly Taxol ???12. She tolerated A/C well. She was transitioned to weekly paclitaxel. After 6 dose of weekly Taxol, she was changed to weekly Abraxane due to persistent hyperglycemia due to steroids. completed on 08/05/2019 Chronic hip pain due to chronic arthritis involving bilateral hip as per MRI scan of pelvis done on done on 08/16/2019 showed no evidence of metastatic disease.Chronic right shoulder pain due to rotator cuff, off and on for last 15 years Plan: Discussed with patient regarding her labs from January 05, 2020 white blood count 7.5 hemoglobin 10.5 hematocrit 36 platelets 129,000 ANC 4240, CMP within normal limits except mildly elevated LFTs but now improving Clinically, patient is doing reasonably well in mild to moderate distress due to persistent right lower chest/upper quadrant pain could be due to right lower lung mass invading into the ribs, we will discuss with radiation oncology and palliative dose of radiation may help her pain in the meantime we will adjust her pain medication. As her blood count looks reasonable, will proceed with next cycle of systemic therapy with carboplatin/gemcitabine and followed by Neupogen 480 mcg subcu daily for 3 days to prevent chemotherapy-induced neutropenia and to maintain chemo schedule. Patient will return to clinic in 2 weeks with CBC CMP , for next cycle of chemotherapy Signed By: Laurita Hernández M.D. <<Signature on File>>
[2021-01-20] MEDS: alteplase 1 mg/mL SDV 2 mL 2 MG IV (10:04)
[2021-01-20 10:28] LABS: Basophils % 0.5 %; Eosinophils # 0.1 10^3/uL (0.0-0.8); Eosinophils % 1.9 %; Hematocrit 33.5 % (37.0-47.0); Lymphocytes # 0.4 10^3/uL (0.8-4.8); Lymphocytes % 11.6 %; Mean Corpuscular HGB Conc 29.9 g/dL (30.0-36.0); Mean Corpuscular Hemoglobin 24.6 pg (28.0-34.0); Mean Corpuscular Volume 82.3 fL (81-99); Mean Platelet Volume 9.4 fL (7.4-10.4); Monocytes # 0.7 10^3/uL (0.2-0.9); Monocytes % 18.9 %; Neutrophils # 2.47 10^3/uL (1.8-7.7); Neutrophils % 66.6 %; Nucleated Red Blood Cells % 0 %; Platelet Count 258 10^3/cmm (130-400); Red Blood Count 4.07 10^6/uL (4.1-5.3); Red Cell Distribution Width 19.8 % (12.1-15.1); White Blood Count 3.7 10^3/uL (4.0-10.0)
[2021-01-20 10:46] LABS: Alanine Aminotransferase 77 U/L (0-33); Albumin Level 3.3 g/dL (3.5-5.2); Alkaline Phosphatase 136 IU/L (35-105); Anion Gap 11.7 (5-19); Aspartate Amino Transferase 35 U/L (0-32); Blood Urea Nitrogen 9 mg/dL (6-20); Calcium 8.2 mg/dL (8.5-10.5); Carbon Dioxide 29 mmol/L (22-29); Chloride 95 mmol/L (98-107); Globulin 3.5 g/dL (1.3-4.6); Glomerular Filtration Rate 127.2 mL/min (90-130); Glucose 113 mg/dL (65-115); Osmolality Calculated 273 mOsm/kg (285-295); Potassium 3.7 mmol/L (3.5-5.1); Sodium 132 mmol/L (136-145); Total Bilirubin 0.2 mg/dL (0.15-1.2); Total Protein 6.8 g/dL (6.6-8.7)
[2021-01-20 12:14] LABS: Thyroid Stimulating Hormone 2.59 uIU/mL (0.27-4.20)
[2021-01-20] MEDS: sodium chloride 0.9% 250 ML 75 ML IV (12:35)
[2021-01-20] MEDS: palonosetron 0.25 mg/5 mL SDV IVP (12:35)
[2021-01-21] MEDS: denosumab 120 mg SDV SUBCUT (13:50)
--- NOTE | 2021-01-28 11:15 | ONC FU_ITS ---
[facility] Patient Note Patient: Agatha Hoffamn Unit #: [id number]: 1965 Dictated By: Mary LamaDate of Visit: January 20, 2021 Onc MED Follow-Up/Prog Note Chief Complaint: Right breast cancer History of Present Illness: Ms. Hoffman is a 55-year-old female with long-standing history of right breast lump. She underwent right breast biopsy about 6 years ago, at that time she was told it was a benign. Recently she noticed pain and discomfort in her right breast so underwent bilateral mammogram on 12/05/2018. 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 BRCA 1/2 came back negative Patient denied any nipple discharge patient denies any nipple retraction, but complaining of discomfort in her right breast, denies any right axillary fullness, denies any trauma to her breast. She also denied any bony pain. History of back pain due to back injury about 15 years ago and intolerance to NSAIDs because of persistent severe nausea vomiting. Ms Hoffman underwent right modified radical mastectomy with right axilla lymph node dissection On 01/15/2019. The final pathology report showed 2.5 x 1.5 cm infiltrating ductal carcinoma, 0 out of 3 lymph nodes showed metastatic disease. Echocardiogram done on 02/07/2019 showed a Ejection fraction 77.3% Ms Hoffman started on adjuvant chemotherapy with dose dense Adriamycin Cytoxan With Neulasta support (to prevent chemotherapy-induced neutropenia) on 02/19/2019. s/p 4 doses of Adriamycin Cytoxan. She was transitioned to weekly paclitaxel on 04/29/2019. She had issues with hyperglycemia due to steroids; so on 06/10/2019 paclitaxel was switched to Abraxane for the remaining 6 doses of her planned therapy and completed on 08/05/2019 On 05/31/2019 she developed painful, clear fluid filled blisters on her mid upper back area. She went to emergency room where she was given acyclovir for shingles- now resolved. On 06/16/2019 she was admitted to hospital with not feeling well, fever of with yellowish phlegm and was treated as inpatient with IV antibiotics and felt better. She had some residual neuropathy but states it is no worse than what it has been. worsening bilateral hip pain and lower back pain . She states is been there forever and is chronic. She is also having worsening knee pain but states that hips are worse. She is had no recent trauma or falls. She states the pain just seems to be more persistent and does not let up. She does try Tylenol and Aleve. She states she is taken hydrocodone in the past with good relief. At least allowed her to get her activities of daily living accomplished in a timely manner. For which she underwent MRI scan of the pelvis on 08/16/2019 which showed no evidence of metastatic disease, moderate degenerative arthritis both hips. No sacral fracture and no bony metastases. She is also having some vision changes and that she is having wavy vision which she states is happened in the past with an aura before she had a migraine headache.For which she underwent MRI scan of the head on 08/16/2019 which showed no evidence of metastatic disease. Echocardiogram done on 08/05/2019 showed ejection fraction 65%. off and on right shoulder pain, for the last 15 years, now progressive, as per patient, in the past she was told pain is due to problem with her rotator cuff and now pain is becoming bothersome. Cannot take Motrin the cause of intolerance so trying Tylenol with some help.-For which she underwent MRI scan of the C-spine on October 06, 2019 which showed central disc osteophyte protrusion at C5-C6 also had MRI scan of right shoulder done on January 03, 2020 which showed moderate degenerative arthritis at the AC joint with a mild edema and mild downsloping of acromion with subacromial spurring. Chronic tenting of supraspinatus and tiny intrasubstance tear distally. Patient was given steroid injection in the right shoulder with that her pain improved significantly. Patient recently underwent prophylactic left mastectomy on 10/08/2019. progressive shortness of breath and right lower chest pain and cough, as per patient about 2 months ago, she fell in her porch and injured her left knee torn ACL and her leg was immobilized for 6 weeks and then to reevaluate for surgical options. Patient said on April 04, 2020 she started experience shortness of breath, no fever, no hemoptysis no hematemesis she thought it was due to allergies as she has many cats and went to see her PMD who gave her Claritin, without much help then he was switched to Zyrtec her shortness of breath continue worse eventually she had a chest x-ray done which showed right pleural effusion subsequently underwent CT scan of chest on June 04, 2020 which showed large right pleural effusion with compressive atelectasis in the right lower lobe mild right to left mass-effect on the mediastinum. Numerous enhancing pleural-based nodules involving the right pleura posteriorly along the right lower lobe and extending along the right hemidiaphragm. Enhancing pleural-based nodules throughout the right lung and extending along the anterior mediastinum suspicious for pleural-based metastatic disease. Left lung clear no mediastinal or hilar lymphadenopathy, mild diffuse fatty infiltration of the liver .Patient was referred to pulmonology for evaluation on June 05, 2020 patient underwent right thoracentesis and about 2 L of bloody fluid was removed and patient felt better immediately and fluid was sent for cytology which came back as negative for malignancy, Repeat right thoracentesis done on July 01, 2020 and the cytology came back rare tumor cell, metastatic carcinoma, chronic inflammation with reactive mesothelial cell and immunohistochemistry positive for CK7, CK cocktail, CK Pradeep,Christophe-EP4, and negative for GCDFP, estrogen receptor CT PET scan done on July 18, 2020 showed a right retropectoral node measuring 2.3 x 1.2 cm has SUV of 10.9. Within the right hemithorax there are multiple pleural-based nodules with FDG uptake consistent with recurrent malignancy, as well as previously described large effusion. Nodules are more prominent dependently, with index nodule at the anterior medial right middle lobe adherent to the mediastinum measuring 2.1 x 2.0 cm with SUV of 14.2 and other lesions have SUV up to 18.1. Activity in the subcentimeter celiac node and abdomen has SUV of 3.7 highly suspicious for malignancy She underwent MRI scan of brain on July 27, 2020 showed heterogeneously enhancing lesion measuring 5.1 x 3.8 x 5.4 cm with moderate surrounding edema with partial effacement of posterior horn of left lateral ventricle, left to right midline shift measuring 6 mm, underwent left parietal tumor resection on August 08, 2020 at [facility], final pathology report reported in medical record as metastatic high-grade metaplastic carcinoma (carcinosarcoma), consistent with breast primary immunohistochemistry positive for CK7, ALVIN 3, mammaglobin and vimentin. Negative for CK20, CDX, TTF-1, PAX 08, Ki-67 more than 50%, ER/WV positive HER-2/angelia 2+ by IHC, negative by DARREN. Ms Hoffman was evaluated by Dr. Chavez, Medical oncologist at [facility] on August 24, 2020 and she was recommended carboplatin/gemcitabine/pembrolizumab and guardant 360 for somatic mutation was ordered on peripheral blood. Ms Hoffman reports she was had been getting repeated right thoracentesis at [facility] and last time was mid September 2020. She states it was about 200 cc and she was told that it could be due to adhesions and pockets formation. Mrs. Hoffman underwent PET CT imaging on October 03, 2020. Comparison was made to 07/18/2020 imaging the right retropectoral node that previously measured 2.3 x 1.2 cm with an SUV of 10.9 was slightly progressed on the September 2020 study. It was measuring 2.8 x 1.5 cm with an SUV of 9.8. The index nodule at the anterior medial right middle lobe adherent to the mediastinum that previously measured 2.1 x 2.0 cm with an SUV of 14.2 measured 2.5 cm in diameter with an SUV of 9.1, indeterminate for progression or response. However there was a new central node measuring 1.7 x 1.9 cm with an SUV of 7.1. The right effusion had improved in volume and multiple other pleural implants are comparable to the previous study. Suspicious celiac upper abdominal node is stable with an SUV of 3.5. A new site of abnormal activity in the right aspect of the T12 vertebral body has an SUV of 9.9 consistent with new osseous metastatic disease. Mrs. Hoffman was offered palliative chemotherapy with carboplatin gemcitabine and pembrolizumab. She began her first cycle on October 26, 2020. She has tolerated it relatively well thus far. Her biggest problem has been abdominal pain and inability to to eat. Initially thought she had some gallbladder problems but nothing was showing on gallbladder imaging. She did have a CT of the abdomen pelvis with contrast on December 10, 2020 which reported small right pleural effusion, multiple nodes of the lung bases. Parenchymal nodules were bilateral and increased in size since October 03, 2020. The largest was 1.4 cm. There was dense thickening at the right lung base and at the medial right lung base is a large soft tissue mass measuring 6.1 x 2.8 cm. There was additional cluster of metastatic implants or lymph nodes along the medial right lower lung field measuring 4.3 x 2.5 cm. These findings were present on the prior PET/CT and were positive. The liver/biliary system reported a normal size of the liver. A nodule in the right lobe of the liver was not seen on the PET/CT the mass in the posterior right lobe measured 1.8 cm. There is additional soft tissue along the posterior surface of the right lobe of the liver along the diaphragmatic surface which is probably metastatic site. No bile duct extraction or dilatation. The gallbladder was reported as normal. Pancreas was normal spleen was normal with granulomata; the adrenal glands were normal. The kidneys were normal. In the IVC there was a filling defect within the lumen extending over a length of 5.6 cm. Diameter was 1.4 cm. Soft tissue thrombus extends into the bifurcation. No left iliac vein identified. This may be congenital as it was not present on the prior PET/CT either. There was no lymphadenopathy. She had reported diffuse osteopenia suspicious but indeterminate T12 metastatic site on the right lateral vertebral body. Given the new thrombus in the IVC. Mrs. Hoffman was started on apixaban on December 10, 2020. Her pain has improved some but not dramatically. She has continued with the carboplatin gemcitabine and pembrolizumab. Her last dosing was January 06, 2021. She continues to require intermittent growth factor support with filgrastim. Her last filgrastim dosing was 480 mcg on January 08, 2021. Mrs. Hoffman is here today for follow-up. She is due for cycle 5 carboplatin gemcitabine pembrolizumab. She states overall she is doing about the same. She states she has no worse. She states I am holding my own . She states she still having abdominal pain but does not want change in medications again. She states that she is kind of in a rhythm and has got it figured out to where I can be comfortable most of the time . She denies any new concerns. She has had no fever or chills. She denies any nausea or vomiting. She states she is just not able to eat a lot and is sick of chicken . She states much of anything else bothers her stomach. Her activity is still marginal although she reports that she has been getting up and try to move around more. She denies any new diarrhea. She denies any new or worsening neuropathy symptoms. She continues to utilize her cane to walk with but states this has been for years and is not new for her. She denies any headaches or vision changes. Her ECOG is 2. Past Medical History: Anxiety Depression Past Surgical History: Breast biopsy - 3 right breat-benign, 1 left breast-malignant Lipoma removal right flank Portacatheter placement (dr. holm) Tubal ligation in 1991 Caesarean section in 1984 Allergies: Ibuprofen and NSAIDs. Medications: Acetaminophen 1 Tablet (of 500 mg) Oral PRN Acetaminophen-Codeine #3 Tablet Oral Albuterol Sulfate 1 - 2 Puff(s) (of 108 (90 base) mcg/act) Aerosol Powder, Breath Activated Inhalation q 4 hours PRN Apixaban 1 Tablet (of 5 mg) Oral b.i.d. Cetirizine HCl 1 Tablet (of 10 mg) Oral daily LORazepam 0.5 - 1 Tablet (of 1 mg) Oral t.i.d. PRN Morphine Sulfate ER 1 Tablet (of 30 mg) Tablet, controlled release Oral q 12 hours Morphine Sulfate ER 1 Tablet (of 15 mg) Tablet ER 12 HR Abuse-Deterrent Oral b.i.d. NexIUM 1 Capsule (of 20 mg) Capsule Delayed Release Oral daily Family History: Ms. Hoffman's mother is alive. Ms. Hoffman's father is alive. Ms. Hoffman's maternal grandmother is : colon cancer. 1 maternal aunt and 1 paternal aunt with breast cancer. Social History: Ms. Hoffman is and she is retired. Ms. Hoffman has never smoked. She has no history of drinking. Ms. Hoffman reports the following support systems: lives in own house. Review Of Symptoms: <See Above> Vital Signs: Performed on January 20, 2021 11:23 Height - 69.00 in Weight - 212.6 lbs (LOW) BSA - 2.12 sq.m BMI - 31.40 (HIGH) Temperature - 97.2 F (LOW) Pulse - 112 /min (HIGH) Respiration - 18 /min BP - 134/83 mm(hg) O2 Sat - 96 % Pain - 4,2 - Ambulatory/capable of all self-care, unable to perform any work activities. Up and about more than 50% of waking hours. (ECOG) Physical Examination: Constitutional Alert, oriented, no acute distress. Skin pink, warm and dry. Head Normocephalic; atraumatic. Eyes Conjunctivae and sclerae are clear and without icterus. Pupils are reactive and equal. Neck Supple without masses or thyromegaly. No jugular venous distension. Hematologic/Lymphatic No petechiae or purpura. No tender or palpable lymph nodes in the cervical or supraclavicular areas. Respiratory Lungs are clear to auscultation without rhonchi or wheezing. Cardiovascular Regular rate and rhythm of heart without murmurs,clicks, gallops or rubs. Chest Chest is symmetric without chest wall deformities. Left venous access device is unremarkable. Back/Spine Non-tender to palpation. Extremities No visible deformities, no cyanosis, clubbing or edema. Musculoskeletal No tenderness or swelling, normal range of motion without obvious weakness. Neurologic No sensory or motor deficits, normal cerebellar function, normal gait. Psychiatric Alert and oriented times three. Coherent speech. Verbalizes understanding of our discussions today. Laboratory:Test performed on January 20, 2021 10:01 Sodium 132 mmol/L TSH 2.59 uIU/mL Potassium 3.7 mmol/L Chloride 95 mmol/L CO2 29 mmol/L Anion Gap 11.7 BUN 9 mg/dL Creatinine 0.5 mg/dL Cr Clearance (Est) 208.1900 mL/min eGFR 127.2 mL/min Glucose 113 mg/dL Osmolality - Calculated 273 mOsm/kg Calcium 8.2 mg/dL Protein, Total 6.8 g/dL Albumin 3.3 g/dL Globulin 3.5 g/dL Bilirubin, Total 0.2 mg/dL ALT (SGPT) 77 U/L AST (SGOT) 35 U/L Alkaline Phosphatase 136 IU/L WBC 3.7 10 3/uL RBC 4.07 10 6/uL HGB 10.0 g/dL HCT 33.5 % MCV 82.3 fL MCH 24.6 pg MCHC 29.9 g/dL RDW 19.8 % Platelet Count 258 10 3/cmm MPV 9.4 fL Neutrophils 2.47 10 3/uL Lymphocytes 0.4 10 3/uL Monocytes 0.7 10 3/uL Eosinophils 0.1 10 3/uL Basophils 0.0 10 3/uL Neutrophil % 66.6 % Lymphocyte % 11.6 % Monocyte % 18.9 % Eosinophil % 1.9 % Basophils % 0.5 % NRBC % 0 % Impression: Due to right-arm weakness, MRI scan of the brain done on August 26, 2020 showed 5.1 x 3.8 x 5.4 cm new mass in the left parietal area for which she underwent left parietal tumor resection on August 08, 2020 and final pathology report showed metastatic high-grade metaplastic carcinoma (carcinosarcoma) immunohistochemistry positive for CK7, GA TA 3, mammaglobin, vimentin Negative for CK20, CDX2, TTF-1, PAX 08. Ki-67 more than 50%, ER/WV negative, HER-2/angelia 2+ by IHC, negative by DARREN. Patient underwent fractionated radiosurgery at [facility], as per patient she received [address] scan of chest done on June 04, 2020 showed large right pleural effusion with compressive atelectasis in the right lower lobe mild right to left mass-effect on mediastinum. Numerous enhancing pleural-based nodules involving right pleura posteriorly along the right lower lobe and extending along the right hemidiaphragm. Enhancing pleural-based nodules throughout the right lung and extending along the anterior mediastinum suspicious for pleural-based metastatic disease. Left lung clear, no mediastinal or hilar lymphadenopathy. Mild diffuse fatty infiltration of liver. Recurrent right pleural effusion status post multiple thoracentesis finally thoracentesis done on July 01, 2020 showed immunohistochemical stain highlight rare tumor cells, metastatic carcinoma as immunohistochemistry stain positive for CK7, CK cocktail, CK Pradeep,Chritsophe-EP4, and negative for estrogen receptor,GCDFP Status post right modified radical mastectomy with right axillary lymph node dissection done on 01/15/2019 showed infiltrating ductal carcinoma tumor size 2.5 x 1.5 cm, T2 and 0/3 lymph node positive for metastatic disease e.g. and 0, DCIS component comprises 15% of tumor volume. Stage IIa Infiltrating ductal carcinoma of right breast status post ultrasound-guided biopsy done on 12/20/2018, final pathology report showed infiltrating ductal carcinoma grade 3, Ki-67 40%, unfavorable, estrogen receptor less than 1%, negative progesterone receptor less than 1%, negative HER-2/angelia 1+, negative for HER-2/angelia overexpression by IHC and over amplification by FISH. BRCA1/2 testing done 02/07/2019 , came back negative Status post left prophylactic mastectomy done on 10/08/2019 Started on dose dense chemotherapy with Adriamycin Cytoxan every 2 weeks ???4 on 02/19/2019, will be followed by weekly Taxol ???12. She tolerated A/C well. She was transitioned to weekly paclitaxel. After 6 dose of weekly Taxol, she was changed to weekly Abraxane due to persistent hyperglycemia due to steroids. completed on 08/05/2019 Chronic hip pain due to chronic arthritis involving bilateral hip as per MRI scan of pelvis done on done on 08/16/2019 showed no evidence of metastatic disease.Chronic right shoulder pain due to rotator cuff, off and on for last 15 years Plan/Problems Addressed at this Visit: 1. Metastatic breast cancer A. She is currently undergoing chemotherapy with carboplatin gemcitabine pembrolizumab. She will proceed with cycle 5 -day1 treatment today. B. Today's labs reviewed in detail and discussed with Mrs. Hoffman and a copy was given to her. WBC 3.7, hemoglobin 10.0, platelets 258,000, ANC is 2470. Sodium 132, potassium 3.7 random glucose 113, creatinine 0.5. Her ALT is improved today at 77 AST is 35 alk phos is 136. Overall improved from her last visit. Her weight today is 212.6. C. I have requested dietary consult for poor appetite and intolerance to many foods due to mesenteric/IVC clot and metastatic breast cancer/persistent weight loss. She has had a documented weight loss of 16 pounds since November 23, 2020 which is unintentional. 2. 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 Proceed with apixaban 5 mg twice daily 3. Brain metastasis A. As per patient she was scheduled for MRI scan of the brain by neurosurgery on December 07, 2020. She does not want to travel and was requesting if it can be done here and send him report for evaluation. We are awaiting further word from neurosurgery at [facility] regarding follow-up MRI head. 4. As for generalized weakness and fatigue is concerned probably multifactorial including narcotics. A. I requested a TSH just for evaluation of the fatigue today 5. Bone metastasis as patient has increased uptake in T12 suggestive of osseous metastatic disease A. Currently on monthly Xgeva last dose given on December 24, 2020. She may be a little early for today. 6. Pain management due to chronic arthritis/bone metastasis/metastatic breast cancer/IVC thrombus/ A. Pain is currently managed with morphine extended release 30 mg every 12 hours 7. Follow-up plan A. We will plan to have her return in 2 weeks for her next planned chemotherapy with carboplatin gemcitabine and pembrolizumab.. She will need a CBC CMP and TSH at that visit. B. I have also requested follow-up/restaging PET CT scan. Compared to September 2020. C. Mrs. Hoffman was instructed to contact us in interim should questions or problems arise. C. Ms. Hoffman has been instructed to contact us in interim should questions or problems arise. Signed By: Mary Lama-, AOCNP Laurita Hernández MD <<Signature on File>>
== END 2021-02-01 23:59 | disposition home or self-care (01) ==
LOC: ONCMED 05:35
PROVIDERS: Internal Medicine Hematology & Oncology; PCP Family Medicine; Visit Provider Nurse Practitioner
DX: Z51.12 Encounter for antineoplastic immunotherapy (principal); Z51.11 Encounter for antineoplastic chemotherapy; C50.811 Malignant neoplasm of overlapping sites of right female breast; Z17.1 Estrogen receptor negative status [ER-]; C79.31 Secondary malignant neoplasm of brain; C79.51 Secondary malignant neoplasm of bone; F41.9 Anxiety disorder, unspecified; F32.9 Major depressive disorder, single episode, unspecified; J90 Pleural effusion, not elsewhere classified; J98.11 Atelectasis; K76.0 Fatty (change of) liver, not elsewhere classified; M16.0 Bilateral primary osteoarthritis of hip; Z79.899 Other long term (current) drug therapy
CPT/HCPCS: 36415; 36591; 36593; 80053; 84443; 85025; 96367; 96372; 96375; 96413; 96417; 99214; J0897; J1100; J2469; J2997; J7040; J7050; J9045; J9201; J9271; Q5101

== ENCOUNTER 2021-02-24 06:07 | Outpatient (RCR) | payer OTHER, SELFPAY ==
[2021-02-02 09:42] LABS: Basophils % 0.4 %; Eosinophils # 0.1 10^3/uL (0.0-0.8); Eosinophils % 1.3 %; Hematocrit 34.6 % (37.0-47.0); Hemoglobin 10.4 g/dL (11.5-15.3); Lymphocytes # 0.6 10^3/uL (0.8-4.8); Lymphocytes % 5.9 %; Mean Corpuscular HGB Conc 30.1 g/dL (30.0-36.0); Mean Corpuscular Hemoglobin 25.2 pg (28.0-34.0); Mean Corpuscular Volume 83.8 fL (81-99); Mean Platelet Volume 10.4 fL (7.4-10.4); Monocytes # 0.8 10^3/uL (0.2-0.9); Monocytes % 8.7 %; Neutrophils # 7.89 10^3/uL (1.8-7.7); Neutrophils % 83.3 %; Nucleated Red Blood Cells % 0 %; Platelet Count 145 10^3/cmm (130-400); Red Blood Count 4.13 10^6/uL (4.1-5.3); Red Cell Distribution Width 20.5 % (12.1-15.1); White Blood Count 9.5 10^3/uL (4.0-10.0)
[2021-02-02 10:14] LABS: Alanine Aminotransferase 90 U/L (0-33); Albumin Level 3.7 g/dL (3.5-5.2); Alkaline Phosphatase 143 IU/L (35-105); Aspartate Amino Transferase 37 U/L (0-32); Blood Urea Nitrogen 8 mg/dL (6-20); Calcium 8.6 mg/dL (8.5-10.5); Carbon Dioxide 28 mmol/L (22-29); Chloride 97 mmol/L (98-107); Glomerular Filtration Rate 164.5 mL/min (90-130); Glucose 128 mg/dL (65-115); Osmolality Calculated 280 mOsm/kg (285-295); Sodium 135 mmol/L (136-145); Thyroid Stimulating Hormone 2.65 uIU/mL (0.27-4.20); Total Bilirubin 0.3 mg/dL (0.15-1.2); Total Protein 6.7 g/dL (6.6-8.7)
--- NOTE | 2021-02-05 12:28 | ONC FU_ITS ---
Dr. Hernández follow up note Patient: Agatha Hoffman Unit #: [id number]: 1965 Dicatated By: Laurita Hernández M.D.Date of Visit:Feb 03, 2021 Onc Med Follow-up/Prog Note History of Present Illness: Ms. Hoffman is a 56-year-old female with long-standing history of right breast lump. She underwent right breast biopsy about 6 years ago, at that time she was told it was a benign. Recently she noticed pain and discomfort in her right breast so underwent bilateral mammogram on 12/05/2018. 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 BRCA 1/2 came back negative Patient denied any nipple discharge patient denies any nipple retraction, but complaining of discomfort in her right breast, denies any right axillary fullness, denies any trauma to her breast. She also denied any bony pain. History of back pain due to back injury about 15 years ago and intolerance to NSAIDs because of persistent severe nausea vomiting. Ms Hoffman underwent right modified radical mastectomy with right axilla lymph node dissection On 01/15/2019. The final pathology report showed 2.5 x 1.5 cm infiltrating ductal carcinoma, 0 out of 3 lymph nodes showed metastatic disease. Echocardiogram done on 02/07/2019 showed a Ejection fraction 77.3% Ms Hoffman started on adjuvant chemotherapy with dose dense Adriamycin Cytoxan With Neulasta support (to prevent chemotherapy-induced neutropenia) on 02/19/2019. s/p 4 doses of Adriamycin Cytoxan. She was transitioned to weekly paclitaxel on 04/29/2019. She had issues with hyperglycemia due to steroids; so on 06/10/2019 paclitaxel was switched to Abraxane for the remaining 6 doses of her planned therapy and completed on 08/05/2019 On 05/31/2019 she developed painful, clear fluid filled blisters on her mid upper back area. She went to emergency room where she was given acyclovir for shingles- now resolved. On 06/16/2019 she was admitted to hospital with not feeling well, fever of with yellowish phlegm and was treated as inpatient with IV antibiotics and felt better. She had some residual neuropathy but states it is no worse than what it has been. worsening bilateral hip pain and lower back pain . She states is been there forever and is chronic. She is also having worsening knee pain but states that hips are worse. She is had no recent trauma or falls. She states the pain just seems to be more persistent and does not let up. She does try Tylenol and Aleve. She states she is taken hydrocodone in the past with good relief. At least allowed her to get her activities of daily living accomplished in a timely manner. For which she underwent MRI scan of the pelvis on 08/16/2019 which showed no evidence of metastatic disease, moderate degenerative arthritis both hips. No sacral fracture and no bony metastases. She is also having some vision changes and that she is having wavy vision which she states is happened in the past with an aura before she had a migraine headache.For which she underwent MRI scan of the head on 08/16/2019 which showed no evidence of metastatic disease. Echocardiogram done on 08/05/2019 showed ejection fraction 65%. off and on right shoulder pain, for the last 15 years, now progressive, as per patient, in the past she was told pain is due to problem with her rotator cuff and now pain is becoming bothersome. Cannot take Motrin the cause of intolerance so trying Tylenol with some help.-For which she underwent MRI scan of the C-spine on October 06, 2019 which showed central disc osteophyte protrusion at C5-C6 also had MRI scan of right shoulder done on January 03, 2020 which showed moderate degenerative arthritis at the AC joint with a mild edema and mild downsloping of acromion with subacromial spurring. Chronic tenting of supraspinatus and tiny intrasubstance tear distally. Patient was given steroid injection in the right shoulder with that her pain improved significantly. Patient recently underwent prophylactic left mastectomy on 10/08/2019. progressive shortness of breath and right lower chest pain and cough, as per patient about 2 months ago, she fell in her porch and injured her left knee torn ACL and her leg was immobilized for 6 weeks and then to reevaluate for surgical options. Patient said on April 04, 2020 she started experience shortness of breath, no fever, no hemoptysis no hematemesis she thought it was due to allergies as she has many cats and went to see her PMD who gave her Claritin, without much help then he was switched to Zyrtec her shortness of breath continue worse eventually she had a chest x-ray done which showed right pleural effusion subsequently underwent CT scan of chest on June 04, 2020 which showed large right pleural effusion with compressive atelectasis in the right lower lobe mild right to left mass-effect on the mediastinum. Numerous enhancing pleural-based nodules involving the right pleura posteriorly along the right lower lobe and extending along the right hemidiaphragm. Enhancing pleural-based nodules throughout the right lung and extending along the anterior mediastinum suspicious for pleural-based metastatic disease. Left lung clear no mediastinal or hilar lymphadenopathy, mild diffuse fatty infiltration of the liver .Patient was referred to pulmonology for evaluation on June 05, 2020 patient underwent right thoracentesis and about 2 L of bloody fluid was removed and patient felt better immediately and fluid was sent for cytology which came back as negative for malignancy, Repeat right thoracentesis done on July 01, 2020 and the cytology came back rare tumor cell, metastatic carcinoma, chronic inflammation with reactive mesothelial cell and immunohistochemistry positive for CK7, CK cocktail, CK Pradeep,Christophe-EP4, and negative for GCDFP, estrogen receptor CT PET scan done on July 18, 2020 showed a right retropectoral node measuring 2.3 x 1.2 cm has SUV of 10.9. Within the right hemithorax there are multiple pleural-based nodules with FDG uptake consistent with recurrent malignancy, as well as previously described large effusion. Nodules are more prominent dependently, with index nodule at the anterior medial right middle lobe adherent to the mediastinum measuring 2.1 x 2.0 cm with SUV of 14.2 and other lesions have SUV up to 18.1. Activity in the subcentimeter celiac node and abdomen has SUV of 3.7 highly suspicious for malignancy She underwent MRI scan of brain on July 27, 2020 showed heterogeneously enhancing lesion measuring 5.1 x 3.8 x 5.4 cm with moderate surrounding edema with partial effacement of posterior horn of left lateral ventricle, left to right midline shift measuring 6 mm, underwent left parietal tumor resection on August 08, 2020 at [facility], final pathology report reported in medical record as metastatic high-grade metaplastic carcinoma (carcinosarcoma), consistent with breast primary immunohistochemistry positive for CK7, ALVIN 3, mammaglobin and vimentin. Negative for CK20, CDX, TTF-1, PAX 08, Ki-67 more than 50%, ER/SC positive HER-2/angelia 2+ by IHC, negative by DARREN. Ms Hoffman was evaluated by Dr. Chavez, Medical oncologist at [facility] on August 24, 2020 and she was recommended carboplatin/gemcitabine/pembrolizumab and guardant 360 for somatic mutation was ordered on peripheral blood. Ms Hoffman reports she was had been getting repeated right thoracentesis at [facility] and last time was mid September 2020. She states it was about 200 cc and she was told that it could be due to adhesions and pockets formation. Mrs. Hoffman underwent PET CT imaging on October 03, 2020. Comparison was made to 07/18/2020 imaging the right retropectoral node that previously measured 2.3 x 1.2 cm with an SUV of 10.9 was slightly progressed on the September 2020 study. It was measuring 2.8 x 1.5 cm with an SUV of 9.8. The index nodule at the anterior medial right middle lobe adherent to the mediastinum that previously measured 2.1 x 2.0 cm with an SUV of 14.2 measured 2.5 cm in diameter with an SUV of 9.1, indeterminate for progression or response. However there was a new central node measuring 1.7 x 1.9 cm with an SUV of 7.1. The right effusion had improved in volume and multiple other pleural implants are comparable to the previous study. Suspicious celiac upper abdominal node is stable with an SUV of 3.5. A new site of abnormal activity in the right aspect of the T12 vertebral body has an SUV of 9.9 consistent with new osseous metastatic disease. Mrs. Hoffman was offered palliative chemotherapy with carboplatin gemcitabine and pembrolizumab. She began her first cycle on October 26, 2020. She has tolerated it relatively well thus far. Her biggest problem has been abdominal pain and inability to to eat. Initially thought she had some gallbladder problems but nothing was showing on gallbladder imaging. She did have a CT of the abdomen pelvis with contrast on December 10, 2020 which reported small right pleural effusion, multiple nodes of the lung bases. Parenchymal nodules were bilateral and increased in size since October 03, 2020. The largest was 1.4 cm. There was dense thickening at the right lung base and at the medial right lung base is a large soft tissue mass measuring 6.1 x 2.8 cm. There was additional cluster of metastatic implants or lymph nodes along the medial right lower lung field measuring 4.3 x 2.5 cm. These findings were present on the prior PET/CT and were positive. The liver/biliary system reported a normal size of the liver. A nodule in the right lobe of the liver was not seen on the PET/CT the mass in the posterior right lobe measured 1.8 cm. There is additional soft tissue along the posterior surface of the right lobe of the liver along the diaphragmatic surface which is probably metastatic site. No bile duct extraction or dilatation. The gallbladder was reported as normal. Pancreas was normal spleen was normal with granulomata; the adrenal glands were normal. The kidneys were normal. In the IVC there was a filling defect within the lumen extending over a length of 5.6 cm. Diameter was 1.4 cm. Soft tissue thrombus extends into the bifurcation. No left iliac vein identified. This may be congenital as it was not present on the prior PET/CT either. There was no lymphadenopathy. She had reported diffuse osteopenia suspicious but indeterminate T12 metastatic site on the right lateral vertebral body. Given the new thrombus in the IVC. Mrs. Hoffman was started on apixaban on December 10, 2020. Her pain has improved some but not dramatically. She has continued with the carboplatin gemcitabine and pembrolizumab. Follow-up CT PET scan done after 4 cycles of chemotherapy with Keytruda/gemcitabine/carboplatin on January 30, 2021 showed right retropectoral lymph node now demonstrates central necrosis, measuring 3.2 x 2.1 cm with SUV of 6.8 consistent with mild positive response to the treatment. Existing pulmonary nodules are progressed in size and uptake on current study. And development of multiple new pulmonary nodules. Right pleural implants are qualitatively more extensive on current study. Indicating progression. New uptake is present in the right paratracheal, subcarinal lymph node of mediastinum. Celiac node described previously stable but there has been development of FDG positive hepatic metastatic disease in both right and left lobes. Osseous metastatic disease at T12 now has SUV of 6.8, questionable improvement. And multiple new lesions have developed ain L1, left sacrum and bilateral proximal femurs. Came for follow-up, complaining of right lower chest wall/right upper quadrant pain somewhat progressive not being controlled by current pain medication effectively but denies any hemoptysis or hematemesis denies any jaundice denies any fever chills denies any nausea or vomiting denies any back pain or hip pain, denies any urine or stool incontinence denies any nausea or vomiting but poor appetite and weight loss., Tolerating systemic chemotherapy with Keytruda/carboplatin/gemcitabine well Medications: Acetaminophen 1 Tablet (of 500 mg) Oral PRN, Acetaminophen-Codeine #3 Tablet Oral, Albuterol Sulfate 1 - 2 Puff(s) (of 108 (90 base) mcg/act) Aerosol Powder, Breath Activated Inhalation q 4 hours PRN, Apixaban 1 Tablet (of 5 mg) Oral b.i.d., Cetirizine HCl 1 Tablet (of 10 mg) Oral daily, LORazepam 0.5 - 1 Tablet (of 1 mg) Oral t.i.d. PRN, Morphine Sulfate ER 1 Tablet (of 30 mg) Tablet, controlled release Oral q 12 hours, Morphine Sulfate ER 1 Tablet (of 15 mg) Tablet ER 12 HR Abuse-Deterrent Oral b.i.d., NexIUM 1 Capsule (of 20 mg) Capsule Delayed Release Oral daily Allergies: Ibuprofen and NSAIDs. Review of Systems: Review of Systems is not available for this patient. Vital Signs: Performed on Feb 03, 2021 08:46 Height - 69.00 in Weight - 205 lbs (LOW) BSA - 2.09 sq.m BMI - 30.27 (HIGH) Temperature - 97.4 F (LOW) Pulse - 114 /min (HIGH) Respiration - 18 /min BP - 115/74 mm(hg) O2 Sat - 94 % (LOW) Pain - 4 Fatigue - 4 Performance Status: 2 - Ambulatory/capable of all self-care, unable to perform any work activities. Up and about more than 50% of waking hours. (ECOG) Physical Examination: Respiratory - Poor air entry otherwise clear, Cardiovascular - Regular rate and rhythm of heart, Gastrointestinal - Soft, bowel sounds present, Extremities - 1+ edema bilaterally. Lab/Imaging: Test performed on Feb 03, 2021 08:11 Creatinine 0.4 mg/dL Cr Clearance (Est) 227.7900 mL/min Test performed on January 20, 2021 10:01 Sodium 132 mmol/L TSH 2.59 uIU/mL Potassium 3.7 mmol/L Chloride 95 mmol/L CO2 29 mmol/L Anion Gap 11.7 BUN 9 mg/dL eGFR 127.2 mL/min Glucose 113 mg/dL Osmolality - Calculated 273 mOsm/kg Calcium 8.2 mg/dL Protein, Total 6.8 g/dL Albumin 3.3 g/dL Globulin 3.5 g/dL Bilirubin, Total 0.2 mg/dL ALT (SGPT) 77 U/L AST (SGOT) 35 U/L Alkaline Phosphatase 136 IU/L WBC 3.7 10 3/uL RBC 4.07 10 6/uL HGB 10.0 g/dL HCT 33.5 % MCV 82.3 fL MCH 24.6 pg MCHC 29.9 g/dL RDW 19.8 % Platelet Count 258 10 3/cmm MPV 9.4 fL Neutrophils 2.47 10 3/uL Lymphocytes 0.4 10 3/uL Monocytes 0.7 10 3/uL Eosinophils 0.1 10 3/uL Basophils 0.0 10 3/uL Neutrophil % 66.6 % Lymphocyte % 11.6 % Monocyte % 18.9 % Eosinophil % 1.9 % Basophils % 0.5 % NRBC % 0 % Test performed on Sep 24, 2020 10:19 Manual Lymphocytes 13.1 % Manual Monocytes 6.0 % Manual Eosinophils 4.6 % Manual Basophils 0.6 % Impression: Due to right-arm weakness, MRI scan of the brain done on August 26, 2020 showed 5.1 x 3.8 x 5.4 cm new mass in the left parietal area for which she underwent left parietal tumor resection on August 08, 2020 and final pathology report showed metastatic high-grade metaplastic carcinoma (carcinosarcoma) immunohistochemistry positive for CK7, GA TA 3, mammaglobin, vimentin Negative for CK20, CDX2, TTF-1, PAX 08. Ki-67 more than 50%, ER/SC negative, HER-2/angelia 2+ by IHC, negative by DARREN. Patient underwent fractionated radiosurgery at [facility] [facility], as per patient she received [address] scan of chest done on June 04, 2020 showed large right pleural effusion with compressive atelectasis in the right lower lobe mild right to left mass-effect on mediastinum. Numerous enhancing pleural-based nodules involving right pleura posteriorly along the right lower lobe and extending along the right hemidiaphragm. Enhancing pleural-based nodules throughout the right lung and extending along the anterior mediastinum suspicious for pleural-based metastatic disease. Left lung clear, no mediastinal or hilar lymphadenopathy. Mild diffuse fatty infiltration of liver. Recurrent right pleural effusion status post multiple thoracentesis finally thoracentesis done on July 01, 2020 showed immunohistochemical stain highlight rare tumor cells, metastatic carcinoma as immunohistochemistry stain positive for CK7, CK cocktail, CK Pradeep,Christophe-EP4, and negative for estrogen receptor,GCDFP Status post right modified radical mastectomy with right axillary lymph node dissection done on 01/15/2019 showed infiltrating ductal carcinoma tumor size 2.5 x 1.5 cm, T2 and 0/3 lymph node positive for metastatic disease e.g. and 0, DCIS component comprises 15% of tumor volume. Stage IIa Infiltrating ductal carcinoma of right breast status post ultrasound-guided biopsy done on 12/20/2018, final pathology report showed infiltrating ductal carcinoma grade 3, Ki-67 40%, unfavorable, estrogen receptor less than 1%, negative progesterone receptor less than 1%, negative HER-2/nagelia 1+, negative for HER-2/angelia overexpression by IHC and over amplification by FISH. BRCA1/2 testing done 02/07/2019 , came back negative Status post left prophylactic mastectomy done on 10/08/2019 Started on dose dense chemotherapy with Adriamycin Cytoxan every 2 weeks ???4 on 02/19/2019, will be followed by weekly Taxol ???12. She tolerated A/C well. She was transitioned to weekly paclitaxel. After 6 dose of weekly Taxol, she was changed to weekly Abraxane due to persistent hyperglycemia due to steroids. completed on 08/05/2019 Chronic hip pain due to chronic arthritis involving bilateral hip as per MRI scan of pelvis done on done on 08/16/2019 showed no evidence of metastatic disease.Chronic right shoulder pain due to rotator cuff, off and on for last 15 years Plan: Discussed with patient regarding her labs white blood count 9.5 hemoglobin 10.4 hematocrit 34.6 platelets 145,000 CMP within normal limits except ALT 90 compared to 77 previously 137 prior to that AST 37, alk phos 143 calcium 8.6 TSH 2.65 and follow-up CT PET scan done on January 30, 2021 showed progression of right pleural implants, existing pleural nodules and interval development of new pulmonary nodules. New mediastinal lymphadenopathy. 12 mental hepatic metastatic disease. Development of multiple new osseous metastatic disease. Stable celiac lymph node. Probable improvement in the right retropectoral lymph node. Clinically, patient doing reasonably well, tolerating systemic therapy with Keytruda/gemcitabine/carboplatin well, her follow-up CT PET scan shows mixed response but significant disease progression moreover development of new osseous metastatic disease as well as hepatic disease, at this point will discontinue Keytruda/carboplatin/gemcitabine and will discuss her case with breast cancer clinic at [facility] regarding any clinical trial or other treatment options, also discussed about hospice care but patient is reluctant and wants to try if any other treatment is available. As far as right lower quadrant pain is concerned, will refer her to radiation oncology for evaluation for possible palliative radiation therapy to the right chest wall and then she will return to clinic after radiation therapy to discuss further treatment options. Signed By: Laurita Hernández M.D. <<Signature on File>>
--- NOTE | 2021-02-08 14:34 | N.ONRAD NP_ITS ---
Radiation Oncology Consultation Patient Name: Agatha Hoffman Date of : 1965 Date of Service: 02/08/2021 Attending Physician: Elvin Jiménez M.D. Agatha Hoffman was seen in consultation this afternoon at the request of Janene Hernández M.D. for consideration of palliative radiotherapy in the management of metastatic non-small cell lung cancer. She was initially diagnosed in June 2021 with metastatic carcinoma after a right thoracentesis was performed on account of a large right pleural effusion resulting in significant dyspnea. A PET CT ordered in July 2020 demonstrated multiple pleural-based nodules and subcentimeter adenopathy. An MRI of the brain identified a solitary 5.4 cm lesion in the left parietal lobe. A left parietal craniotomy completed at [facility] diagnosed carcinosarcoma consistent with a breast primary (she was diagnosed with a BRCA negative, triple negative right carcinoma in December 2018). Per recommendations (the outside hospital records were personally reviewed in [facility]), she was prescribed 4 cycles of carboplatin, gemcitabine, and pembrolizumab between the dates of October 26, 2020 through January 06, 2021. Restaging PET/CT (independently visualized in synapse and reviewed with a radiologist) requested on January 30, 2021 revealed progression and development of new pulmonary nodules in addition to hepatic metastatic disease and skeletal lesions within the first lumbar vertebral body, left sacrum, and bilateral proximal femurs. During a recent office visit, she described progressive right lower chest wall pain that is not controlled with her current treatment (morphine ER 45 mg and acetaminophen/codeine). The patient was evaluated for palliative radiotherapy for the painful right pleural-based implants. I discussed with Ms. Hoffman the role for palliative radiotherapy. I would recommend a 2-week course of radiation therapy. A CT scan will be acquired for radiotherapy planning prior to beginning treatment to delineate the gross tumor volume. The potential toxicities of cervical spine radiotherapy were reviewed. The patient has verbalized understanding would like to proceed as recommended. Her medical treatment plan has been discussed with Janene Hernández M.D. Signed by: Dr. Elvin Jiménez 02/08/2021 2:32:24 PM
--- NOTE | 2021-02-09 | CT_ITS ---
Radiation Therapy Planning CT images; total exam DLP: 366.63 mGy-cm MTDD
--- NOTE | 2021-02-16 15:11 | ONCRAD TMN_ITS ---
Radiation Oncology Treatment Management Note Patient Name: Agatha Hoffman Date of : 1965 Date of Service: 02/16/2021 Attending Physician: Elvin Jiménez M.D. 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 A PET/CT requested on January 30, 2021 revealed progression and development of new pulmonary nodules in addition to hepatic metastatic disease and skeletal lesions within the first lumbar vertebral body, left sacrum, and bilateral proximal femurs. During a recent office visit, she described progressive right lower chest wall pain that is not controlled with her current treatment (morphine ER 45 mg and acetaminophen/codeine). The patient has received 12 Gy of a prescribed 30 Saleh to the right pleural based nodules with a 3-dimensional conformal radiotherapy plan utilizing GABRIEL/RPO treatment wolfe. Upon review of systems, she described improvement in her chest wall pain (4/10). On physical examination, there was no erythema of the skin. Continue palliative radiotherapy as prescribed. Signed by: Dr. Elvin Jiménez 02/16/2021 3:10:29 PM
--- NOTE | 2021-02-24 12:45 | ONCRAD TMN_ITS ---
Radiation Oncology Treatment Management Note Patient Name: Agatha Hoffman Date of : 1965 Date of Service: 02/23/2021 Attending Physician: Elvin Jiménez M.D. 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 A PET/CT requested on January 30, 2021 revealed progression and development of new pulmonary nodules in addition to hepatic metastatic disease and skeletal lesions within the first lumbar vertebral body, left sacrum, and bilateral proximal femurs. During a recent office visit, she described progressive right lower chest wall pain that is not controlled with her current treatment (morphine ER 45 mg and acetaminophen/codeine). The patient has received 27 Gy of a prescribed 30 Saleh to the right pleural based nodules with a 3-dimensional conformal radiotherapy plan utilizing GABRIEL/RPO treatment wolfe. Upon review of systems, she continues to describe chest wall pain. On physical examination, there was no erythema of the skin. Continue palliative radiotherapy as planned. Signed by: Dr. Elvin Jiménez 02/24/2021 12:43:13 PM
== END 2021-03-03 23:59 | disposition home or self-care (01) ==
LOC: ONCMED 06:07
PROVIDERS: Internal Medicine Hematology & Oncology; PCP Family Medicine; Visit Provider Radiology Radiation Oncology
DX: Z51.0 Encounter for antineoplastic radiation therapy (principal); C50.411 Malignant neoplasm of upper-outer quadrant of right female breast; Z17.1 Estrogen receptor negative status [ER-]; C79.51 Secondary malignant neoplasm of bone; M16.0 Bilateral primary osteoarthritis of hip; E03.9 Hypothyroidism, unspecified; Z79.899 Other long term (current) drug therapy
CPT/HCPCS: 36591; 77290; 77295; 77300; 77334; 77336; 77387; 77412; 80053; 84443; 85025; 99205; 99214

== ENCOUNTER 2021-03-10 08:30 | Outpatient (RCR) | payer OTHER, SELFPAY ==
[2021-03-09 15:26] LABS: Eosinophils # 0.1 10^3/uL (0.0-0.8); Hematocrit 40.1 % (37.0-47.0); Lymphocytes # 0.3 10^3/uL (0.8-4.8); Lymphocytes % 8.2 %; Mean Corpuscular HGB Conc 29.9 g/dL (30.0-36.0); Mean Corpuscular Hemoglobin 25.1 pg (28.0-34.0); Mean Corpuscular Volume 83.9 fL (81-99); Mean Platelet Volume 9.2 fL (7.4-10.4); Monocytes # 0.7 10^3/uL (0.2-0.9); Monocytes % 18.5 %; Neutrophils # 2.77 10^3/uL (1.8-7.7); Neutrophils % 69.1 %; Nucleated Red Blood Cells % 0 %; Platelet Count 286 10^3/cmm (130-400); Positive M 1; Red Blood Count 4.78 10^6/uL (4.1-5.3); Red Cell Distribution Width 18.4 % (12.1-15.1)
[2021-03-09 15:47] LABS: Alanine Aminotransferase 27 U/L (0-33); Albumin Level 2.9 g/dL (3.5-5.2); Alkaline Phosphatase 89 IU/L (35-105); Anion Gap 12.8 (5-19); Aspartate Amino Transferase 18 U/L (0-32); Blood Urea Nitrogen 7 mg/dL (6-20); Calcium 7.1 mg/dL (8.5-10.5); Carbon Dioxide 27 mmol/L (22-29); Chloride 97 mmol/L (98-107); Globulin 3.1 g/dL (1.3-4.6); Glomerular Filtration Rate 164.5 mL/min (90-130); Glucose 138 mg/dL (65-115); Osmolality Calculated 276 mOsm/kg (285-295); Potassium 3.8 mmol/L (3.5-5.1); Sodium 133 mmol/L (136-145); Thyroid Stimulating Hormone 3.64 uIU/mL (0.27-4.20); Total Bilirubin 0.2 mg/dL (0.15-1.2)
--- NOTE | 2021-03-10 08:07 | IR_ITS ---
WS: [id number] Left Port-A-Cath injection, 03/10/2021 Clinical Data: VASCULAR DEVICE COMPLICATIONS/NO BLOOD RETURN/PAIN IN NECK Comparison: Portable chest, 10/13/2020. Fluoroscopy time: .2 minutes. Findings: The left Port-A-Cath tip has retracted so that it overlies the superior medial aspect of the left cl avicle. Injection of a small amount of contrast material showed extravasation of the contrast with no flow from the distal tip. Extravasation occurred at the bend of the Port-A-Cath in the left side of the neck. IR/[place] [id number] Impression: 1. Migration of tip of Port-A-Cath so that it overlies the left clavicle with n o contrast flow from the tip. 2. Extravasation of contrast from the bend of the Port-A-Cath tube in the left side of the neck
[2021-03-10] MEDS: iohexol 300 mg/mL 50 mL Btl IV (09:15)
--- NOTE | 2021-03-10 17:23 | ONC FU_ITS ---
Dr. Hernández follow up note Patient: Agatha Hoffman Unit #: [id number]: 1965 Dicatated By: Laurita Hernández M.D.Date of Visit:Mar 10, 2021 Onc Med Follow-up/Prog Note History of Present Illness: Ms. Hoffman is a 56-year-old female with long-standing history of right breast lump. She underwent right breast biopsy about 6 years ago, at that time she was told it was a benign. Recently she noticed pain and discomfort in her right breast so underwent bilateral mammogram on 12/05/2018. 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 BRCA 1/2 came back negative Patient denied any nipple discharge patient denies any nipple retraction, but complaining of discomfort in her right breast, denies any right axillary fullness, denies any trauma to her breast. She also denied any bony pain. History of back pain due to back injury about 15 years ago and intolerance to NSAIDs because of persistent severe nausea vomiting. Ms Hoffman underwent right modified radical mastectomy with right axilla lymph node dissection On 01/15/2019. The final pathology report showed 2.5 x 1.5 cm infiltrating ductal carcinoma, 0 out of 3 lymph nodes showed metastatic disease. Echocardiogram done on 02/07/2019 showed a Ejection fraction 77.3% Ms Hoffman started on adjuvant chemotherapy with dose dense Adriamycin Cytoxan With Neulasta support (to prevent chemotherapy-induced neutropenia) on 02/19/2019. s/p 4 doses of Adriamycin Cytoxan. She was transitioned to weekly paclitaxel on 04/29/2019. She had issues with hyperglycemia due to steroids; so on 06/10/2019 paclitaxel was switched to Abraxane for the remaining 6 doses of her planned therapy and completed on 08/05/2019 On 05/31/2019 she developed painful, clear fluid filled blisters on her mid upper back area. She went to emergency room where she was given acyclovir for shingles- now resolved. On 06/16/2019 she was admitted to hospital with not feeling well, fever of with yellowish phlegm and was treated as inpatient with IV antibiotics and felt better. She had some residual neuropathy but states it is no worse than what it has been. worsening bilateral hip pain and lower back pain . She states is been there forever and is chronic. She is also having worsening knee pain but states that hips are worse. She is had no recent trauma or falls. She states the pain just seems to be more persistent and does not let up. She does try Tylenol and Aleve. She states she is taken hydrocodone in the past with good relief. At least allowed her to get her activities of daily living accomplished in a timely manner. For which she underwent MRI scan of the pelvis on 08/16/2019 which showed no evidence of metastatic disease, moderate degenerative arthritis both hips. No sacral fracture and no bony metastases. She is also having some vision changes and that she is having wavy vision which she states is happened in the past with an aura before she had a migraine headache.For which she underwent MRI scan of the head on 08/16/2019 which showed no evidence of metastatic disease. Echocardiogram done on 08/05/2019 showed ejection fraction 65%. off and on right shoulder pain, for the last 15 years, now progressive, as per patient, in the past she was told pain is due to problem with her rotator cuff and now pain is becoming bothersome. Cannot take Motrin the cause of intolerance so trying Tylenol with some help.-For which she underwent MRI scan of the C-spine on October 06, 2019 which showed central disc osteophyte protrusion at C5-C6 also had MRI scan of right shoulder done on January 03, 2020 which showed moderate degenerative arthritis at the AC joint with a mild edema and mild downsloping of acromion with subacromial spurring. Chronic tenting of supraspinatus and tiny intrasubstance tear distally. Patient was given steroid injection in the right shoulder with that her pain improved significantly. Patient recently underwent prophylactic left mastectomy on 10/08/2019. progressive shortness of breath and right lower chest pain and cough, as per patient about 2 months ago, she fell in her porch and injured her left knee torn ACL and her leg was immobilized for 6 weeks and then to reevaluate for surgical options. Patient said on April 04, 2020 she started experience shortness of breath, no fever, no hemoptysis no hematemesis she thought it was due to allergies as she has many cats and went to see her PMD who gave her Claritin, without much help then he was switched to Zyrtec her shortness of breath continue worse eventually she had a chest x-ray done which showed right pleural effusion subsequently underwent CT scan of chest on June 04, 2020 which showed large right pleural effusion with compressive atelectasis in the right lower lobe mild right to left mass-effect on the mediastinum. Numerous enhancing pleural-based nodules involving the right pleura posteriorly along the right lower lobe and extending along the right hemidiaphragm. Enhancing pleural-based nodules throughout the right lung and extending along the anterior mediastinum suspicious for pleural-based metastatic disease. Left lung clear no mediastinal or hilar lymphadenopathy, mild diffuse fatty infiltration of the liver .Patient was referred to pulmonology for evaluation on June 05, 2020 patient underwent right thoracentesis and about 2 L of bloody fluid was removed and patient felt better immediately and fluid was sent for cytology which came back as negative for malignancy, Repeat right thoracentesis done on July 01, 2020 and the cytology came back rare tumor cell, metastatic carcinoma, chronic inflammation with reactive mesothelial cell and immunohistochemistry positive for CK7, CK cocktail, CK Pradeep,Christophe-EP4, and negative for GCDFP, estrogen receptor CT PET scan done on July 18, 2020 showed a right retropectoral node measuring 2.3 x 1.2 cm has SUV of 10.9. Within the right hemithorax there are multiple pleural-based nodules with FDG uptake consistent with recurrent malignancy, as well as previously described large effusion. Nodules are more prominent dependently, with index nodule at the anterior medial right middle lobe adherent to the mediastinum measuring 2.1 x 2.0 cm with SUV of 14.2 and other lesions have SUV up to 18.1. Activity in the subcentimeter celiac node and abdomen has SUV of 3.7 highly suspicious for malignancy She underwent MRI scan of brain on July 27, 2020 showed heterogeneously enhancing lesion measuring 5.1 x 3.8 x 5.4 cm with moderate surrounding edema with partial effacement of posterior horn of left lateral ventricle, left to right midline shift measuring 6 mm, underwent left parietal tumor resection on August 08, 2020 at [place], final pathology report reported in medical record as metastatic high-grade metaplastic carcinoma (carcinosarcoma), consistent with breast primary immunohistochemistry positive for CK7, ALVIN 3, mammaglobin and vimentin. Negative for CK20, CDX, TTF-1, PAX 08, Ki-67 more than 50%, ER/KY positive HER-2/angelia 2+ by IHC, negative by DARREN. Ms Hoffman was evaluated by Dr. Chavez, Medical oncologist at [place] on August 24, 2020 and she was recommended carboplatin/gemcitabine/pembrolizumab and guardant 360 for somatic mutation was ordered on peripheral blood. Ms Hoffman reports she was had been getting repeated right thoracentesis at [facility] and last time was mid September 2020. She states it was about 200 cc and she was told that it could be due to adhesions and pockets formation. Mrs. Hoffman underwent PET CT imaging on October 03, 2020. Comparison was made to 07/18/2020 imaging the right retropectoral node that previously measured 2.3 x 1.2 cm with an SUV of 10.9 was slightly progressed on the September 2020 study. It was measuring 2.8 x 1.5 cm with an SUV of 9.8. The index nodule at the anterior medial right middle lobe adherent to the mediastinum that previously measured 2.1 x 2.0 cm with an SUV of 14.2 measured 2.5 cm in diameter with an SUV of 9.1, indeterminate for progression or response. However there was a new central node measuring 1.7 x 1.9 cm with an SUV of 7.1. The right effusion had improved in volume and multiple other pleural implants are comparable to the previous study. Suspicious celiac upper abdominal node is stable with an SUV of 3.5. A new site of abnormal activity in the right aspect of the T12 vertebral body has an SUV of 9.9 consistent with new osseous metastatic disease. Mrs. Hoffman was offered palliative chemotherapy with carboplatin gemcitabine and pembrolizumab. She began her first cycle on October 26, 2020. She has tolerated it relatively well thus far. Her biggest problem has been abdominal pain and inability to to eat. Initially thought she had some gallbladder problems but nothing was showing on gallbladder imaging. She did have a CT of the abdomen pelvis with contrast on December 10, 2020 which reported small right pleural effusion, multiple nodes of the lung bases. Parenchymal nodules were bilateral and increased in size since October 03, 2020. The largest was 1.4 cm. There was dense thickening at the right lung base and at the medial right lung base is a large soft tissue mass measuring 6.1 x 2.8 cm. There was additional cluster of metastatic implants or lymph nodes along the medial right lower lung field measuring 4.3 x 2.5 cm. These findings were present on the prior PET/CT and were positive. The liver/biliary system reported a normal size of the liver. A nodule in the right lobe of the liver was not seen on the PET/CT the mass in the posterior right lobe measured 1.8 cm. There is additional soft tissue along the posterior surface of the right lobe of the liver along the diaphragmatic surface which is probably metastatic site. No bile duct extraction or dilatation. The gallbladder was reported as normal. Pancreas was normal spleen was normal with granulomata; the adrenal glands were normal. The kidneys were normal. In the IVC there was a filling defect within the lumen extending over a length of 5.6 cm. Diameter was 1.4 cm. Soft tissue thrombus extends into the bifurcation. No left iliac vein identified. This may be congenital as it was not present on the prior PET/CT either. There was no lymphadenopathy. She had reported diffuse osteopenia suspicious but indeterminate T12 metastatic site on the right lateral vertebral body. Given the new thrombus in the IVC. Mrs. Hoffman was started on apixaban on December 10, 2020. Her pain has improved some but not dramatically. She has continued with the carboplatin gemcitabine and pembrolizumab. Follow-up CT PET scan done after 4 cycles of chemotherapy with Keytruda/gemcitabine/carboplatin on January 30, 2021 showed right retropectoral lymph node now demonstrates central necrosis, measuring 3.2 x 2.1 cm with SUV of 6.8 consistent with mild positive response to the treatment. Existing pulmonary nodules are progressed in size and uptake on current study. And development of multiple new pulmonary nodules. Right pleural implants are qualitatively more extensive on current study. Indicating progression. New uptake is present in the right paratracheal, subcarinal lymph node of mediastinum. Celiac node described previously stable but there has been development of FDG positive hepatic metastatic disease in both right and left lobes. Osseous metastatic disease at T12 now has SUV of 6.8, questionable improvement. And multiple new lesions have developed ain L1, left sacrum and bilateral proximal femurs., Patient was referred to radiation oncology for evaluation regarding persistent/progressive right lower chest pain, she was treated with radiation therapy which she completed on February 24, 2021, as per patient initially pain got somewhat better but then progressed again. Patient went to [facility] recently and had MRI scan of the brain done, which showed extensive brain mets, patient is awaiting telemedicine consultation with neurosurgery Came for follow-up, complaining of generalized weakness and fatigue and also persistent progressive right lower chest pain, as per patient radiation helped her in the beginning but then pain become progressive now on morphine/hydrocodone but not enough to control her pain patient is also smoking marijuana. Denies any fever chills denies any nausea vomiting denies any seizure-like activity denies any headaches blurred vision or double vision Medications: Acetaminophen 1 Tablet (of 500 mg) Oral PRN, Acetaminophen-Codeine #3 Tablet Oral, Albuterol Sulfate 1 - 2 Puff(s) (of 108 (90 base) mcg/act) Aerosol Powder, Breath Activated Inhalation q 4 hours PRN, Apixaban 1 Tablet (of 5 mg) Oral b.i.d., Cetirizine HCl 1 Tablet (of 10 mg) Oral daily, LORazepam 0.5 - 1 Tablet (of 1 mg) Oral t.i.d. PRN, Morphine Sulfate ER 1 Tablet (of 30 mg) Tablet, controlled release Oral q 12 hours, Morphine Sulfate ER 1 Tablet (of 15 mg) Tablet ER 12 HR Abuse-Deterrent Oral b.i.d., NexIUM 1 Capsule (of 20 mg) Capsule Delayed Release Oral daily Allergies: Ibuprofen and NSAIDs. Review of Systems: Review of Systems is not available for this patient. Vital Signs: Performed on Mar 10, 2021 09:10 Height - 66.00 in (LOW) BSA - 0.00 sq.m BMI - 0.00 Temperature - 98.0 F (LOW) Pulse - 120 /min (HIGH) Respiration - 18 /min BP - 107/76 mm(hg) O2 Sat - 94 % (LOW) Pain - 6 Performance Status: 3 - Capable of only limited self-care, confined to bed or chair more than 50% of waking hours. (ECOG) Physical Examination: Respiratory - Lungs are clear to auscultation, Cardiovascular - Regular rate and rhythm of heart, Gastrointestinal - Soft, bowel sounds present, Extremities - 1+ edema bilaterally. Lab/Imaging: Test performed on Feb 03, 2021 08:11 Creatinine 0.4 mg/dL Cr Clearance (Est) 227.7900 mL/min Test performed on January 20, 2021 10:01 Sodium 132 mmol/L TSH 2.59 uIU/mL Potassium 3.7 mmol/L Chloride 95 mmol/L CO2 29 mmol/L Anion Gap 11.7 BUN 9 mg/dL eGFR 127.2 mL/min Glucose 113 mg/dL Osmolality - Calculated 273 mOsm/kg Calcium 8.2 mg/dL Protein, Total 6.8 g/dL Albumin 3.3 g/dL Globulin 3.5 g/dL Bilirubin, Total 0.2 mg/dL ALT (SGPT) 77 U/L AST (SGOT) 35 U/L Alkaline Phosphatase 136 IU/L WBC 3.7 10 3/uL RBC 4.07 10 6/uL HGB 10.0 g/dL HCT 33.5 % MCV 82.3 fL MCH 24.6 pg MCHC 29.9 g/dL RDW 19.8 % Platelet Count 258 10 3/cmm MPV 9.4 fL Neutrophils 2.47 10 3/uL Lymphocytes 0.4 10 3/uL Monocytes 0.7 10 3/uL Eosinophils 0.1 10 3/uL Basophils 0.0 10 3/uL Neutrophil % 66.6 % Lymphocyte % 11.6 % Monocyte % 18.9 % Eosinophil % 1.9 % Basophils % 0.5 % NRBC % 0 % Test performed on Sep 24, 2020 10:19 Manual Lymphocytes 13.1 % Manual Monocytes 6.0 % Manual Eosinophils 4.6 % Manual Basophils 0.6 % Impression: Due to right-arm weakness, MRI scan of the brain done on August 26, 2020 showed 5.1 x 3.8 x 5.4 cm new mass in the left parietal area for which she underwent left parietal tumor resection on August 08, 2020 and final pathology report showed metastatic high-grade metaplastic carcinoma (carcinosarcoma) immunohistochemistry positive for CK7, GA TA 3, mammaglobin, vimentin Negative for CK20, CDX2, TTF-1, PAX 08. Ki-67 more than 50%, ER/KY negative, HER-2/angelia 2+ by IHC, negative by DARREN. Patient underwent fractionated radiosurgery at [place], as per patient she received [address] scan of chest done on June 04, 2020 showed large right pleural effusion with compressive atelectasis in the right lower lobe mild right to left mass-effect on mediastinum. Numerous enhancing pleural-based nodules involving right pleura posteriorly along the right lower lobe and extending along the right hemidiaphragm. Enhancing pleural-based nodules throughout the right lung and extending along the anterior mediastinum suspicious for pleural-based metastatic disease. Left lung clear, no mediastinal or hilar lymphadenopathy. Mild diffuse fatty infiltration of liver. Recurrent right pleural effusion status post multiple thoracentesis finally thoracentesis done on July 01, 2020 showed immunohistochemical stain highlight rare tumor cells, metastatic carcinoma as immunohistochemistry stain positive for CK7, CK cocktail, CK Pradeep,Christophe-EP4, and negative for estrogen receptor,GCDFP Status post right modified radical mastectomy with right axillary lymph node dissection done on 01/15/2019 showed infiltrating ductal carcinoma tumor size 2.5 x 1.5 cm, T2 and 0/3 lymph node positive for metastatic disease e.g. and 0, DCIS component comprises 15% of tumor volume. Stage IIa Infiltrating ductal carcinoma of right breast status post ultrasound-guided biopsy done on 12/20/2018, final pathology report showed infiltrating ductal carcinoma grade 3, Ki-67 40%, unfavorable, estrogen receptor less than 1%, negative progesterone receptor less than 1%, negative HER-2/angelia 1+, negative for HER-2/angelia overexpression by IHC and over amplification by FISH. BRCA1/2 testing done 02/07/2019 , came back negative Status post left prophylactic mastectomy done on 10/08/2019 Started on dose dense chemotherapy with Adriamycin Cytoxan every 2 weeks ???4 on 02/19/2019, will be followed by weekly Taxol ???12. She tolerated A/C well. She was transitioned to weekly paclitaxel. After 6 dose of weekly Taxol, she was changed to weekly Abraxane due to persistent hyperglycemia due to steroids. completed on 08/05/2019 Chronic hip pain due to chronic arthritis involving bilateral hip as per MRI scan of pelvis done on done on 08/16/2019 showed no evidence of metastatic disease.Chronic right shoulder pain due to rotator cuff, off and on for last 15 years Plan: Discussed with patient regarding her labs white blood count 4 hemoglobin 12 hematocrit 40.1 platelets 286,000 CMP within normal limits Clinically, patient is in moderate to severe distress due to progressive right chest pain for which she underwent palliative radiation therapy which she completed on February 24, 2021 as per patient radiation did not help her much, in that case we will increase her extended release morphine dose to 60 mg every 12 hours and she will continue hydrocodone on as-needed basis and adjust her pain medication, as per patient and daughter patient went to [facility] recently and had MRI scan of the brain done which shows new multiple brain lesions consistent with metastatic disease, patient is awaiting telemedicine visit with her neurosurgery, with this information and progressive right chest pain which is probably due to disease progression, and overall declining in her performance status, patient was offered hospice care but patient wants to discuss with her family and her physician at [place] before she consider hospice care, patient was advised, their treatment options like palliative therapy with ixabepilone/Xeloda oral Xeloda alone or ixabepilone alone if not tolerated, we may consider sacituzumab govitecan, which was recently approved by FDA but my concern is her poor performance status and extensive disease which is progressing and new brain mets. In the meantime we will continue with comfort and supportive care she will return to clinic in 1 week for further discussion unless patient decide about hospice Signed By: Laurita Hernández M.D. <<Signature on File>>
== END 2021-04-03 23:59 | disposition home or self-care (01) ==
LOC: RAD 08:30
PROVIDERS: PCP Family Medicine; Visit Provider Internal Medicine Hematology & Oncology
DX: C50.411 Malignant neoplasm of upper-outer quadrant of right female breast (principal); Z17.1 Estrogen receptor negative status [ER-]; C79.51 Secondary malignant neoplasm of bone; Z90.11 Acquired absence of right breast and nipple; Z90.12 Acquired absence of left breast and nipple; R73.9 Hyperglycemia, unspecified; M16.0 Bilateral primary osteoarthritis of hip; Z79.52 Long term (current) use of systemic steroids; Z79.899 Other long term (current) drug therapy; Z92.21 Personal history of antineoplastic chemotherapy
CPT/HCPCS: 36415; 36598; 80053; 84443; 85025; 96523; 99214; Q9967